=== PATIENT | female | born 1970 | race Caucasian/White ===

== ENCOUNTER 2023-03-18 09:50 | Emergency (ER) | payer MEDICARE, MEDICAID, SELFPAY ==
[2023-03-18] VITALS (21 sets, daily range): BP systolic 117–127; BP diastolic 66–78; PULSE 63–78; RESP 9–21; TEMP 36.6; O2SAT 94–100; BMI 31.8
--- NOTE | 2023-03-18 10:02 | XR_ITS ---
The [address] [address] Patient Name: WINIFRED MARTINEZ MRN: [id number] date: 1970 Sex: F Assigned Patient Location: ER Current Patient Location: ER Accession/Order Number: [id number] Exam Date: 03/18/2023 10:27 Report Date: 03/18/2023 10:38 At the request of: TOM JOHNSON Procedure: XR chest 1V EXAM: XR chest 1V HISTORY: chest pain COMPARISON: 01/10/2022 TECHNIQUE: Single view of the chest FINDINGS: Heart size normal. No focal consolidation, pleural effusion, pulmonary congestion or pneumothorax. XR/XR chest 1V IMPRESSION: No acute findings. Electronically authenticated by: JAMES CHRISTIE Date: 03/18/2023 10:38
--- NOTE | 2023-03-18 10:02 | ECG_ITS ---
The [facility] Test Date: 2023-03-18 Pat Name: WINIFRED MARTINEZ Department: Room: - Gender: Female Rn Patient Care: : 1970 Requested By: Order Number: [id number] Reading MD: DIETER SAINZ Measurements Intervals [place] Rate: 73 P: 44 FL: 178 QRS: 45 QRSD: 82 T: 49 QT: 394 QTc: 420 Interpretive Statements 1100 Sinus rhythm 9110 normal ECG No previous ECG available for comparison Electronically Signed On 03-19-2023 7:11:18 EDT by DIETER SAINZ
--- NOTE | 2023-03-18 10:07 | ED.CHESTPAI1 ---
HPI - Chest Pain General Chief Complaint: Chest Pain Stated Complaint: CHEST PAIN Time Seen by Provider: 03/18/23 09:56 Source: patient Mode of arrival: walk-in History of Present Illness HPI narrative: 52-year-old female presents for chest pain. It started about thirty minutes ago while she was at work. She points to the substernal area and the area just to the left of it. It's been continuous. She took her aspirin this morning and she took two of her own nitroglycerin and it brought the pain down. The pain is moderate and it's been continuous. No trauma and she doesn't complain to me of shortness of breath. She states that she had a stress test that was negative and she sees a senior advocate. She's never had a heart catheterization or diagnosis of coronary artery disease. Related Data Home Medications Medication Instructions Recorded Confirmed fluoxetine 20 mg capsule 20 mg PO DAILY 03/18/23 03/18/23 nitroglycerin 0.4 mg sublingual 0.4 mg sublingual Q5M PRN chest 03/18/23 03/18/23 tablet pain rosuvastatin 20 mg tablet 20 mg PO DAILY 03/18/23 03/18/23 Allergies Allergy/AdvReac Type Severity Reaction Status Date / Time No Known Drug Allergies Allergy Verified 03/18/23 09:54 Review of Systems ROS Narrative A ten point review of systems is negative except as noted above. Exam Narrative Exam Narrative: Nurses note and vital signs reviewed and patient is not hypoxic. General: The patient appears well and in no apparent distress. Patient is resting comfortably on cart. Skin: Warm, dry, no pallor noted. There is no rash noted. Head: Normocephalic, atraumatic Eye: Normal conjunctiva, no drainage Ears, Nose, Mouth, and Throat: oral mucosa is moist. Nares patent. Cardiovascular: Regular Rate and Rhythm Respiratory: Patient is in no distress, no accessory muscle use, lungs are clear to auscultation, no wheezing, rales or rhonchi Back: non-tender GI: soft and nontender Musculoskeletal: The patient has no evidence of calf tenderness, no pitting edema, symmetrical pulses noted bilaterally Neurological: A&O, normal speech Psychiatric: Cooperative Constitutional Vital Signs, click to edit/add: Last Vital Signs Temp 97.8 F 03/18/23 09:54 Pulse 78 03/18/23 11:10 Resp 14 03/18/23 11:10 BP 124/66 03/18/23 09:56 Pulse Ox 98 03/18/23 11:10 O2 Del Method Room Air 03/18/23 09:54 Course Vital Signs Vital signs: Vital Signs Temperature 97.8 F 03/18/23 09:54 Pulse Rate 75 03/18/23 09:54 Respiratory Rate 18 03/18/23 09:54 Blood Pressure 124/66 03/18/23 09:54 Pulse Oximetry 98 03/18/23 09:54 Oxygen Delivery Method Room Air 03/18/23 09:54 Temperature 97.8 F 03/18/23 09:54 Pulse Rate 78 03/18/23 11:10 Respiratory Rate 14 03/18/23 11:10 Blood Pressure 124/66 03/18/23 09:56 Pulse Oximetry 98 03/18/23 11:10 Oxygen Delivery Method Room Air 03/18/23 09:54 MDM - Chest Pain MDM Narrative Medical decision making narrative: per workup including two sets of troponin is negative. Chest x-ray negative. She is feeling improved after Toradol and will be discharged home. She'll follow-up with her family doctor. At this point there is no evidence of acute coronary syndrome. Treatment diagnosis and follow-up were discussed with the patient. heart score is two. Differential Diagnosis Differential diagnosis: Likely pneumothorax, stable angina, unstable angina pectoris, atypical chest pain, st elevation myocardial infarction, costochondritis and chest pain Lab Data Attestation: I reviewed the patient's lab results. Labs: Lab Results 03/18/23 03/18/23 Range/Units 10:00 11:43 WBC 9.6 (4.0-11.0) 10^3/uL RBC 4.41 (4.20-5.40) 10^6/uL Hgb 13.2 (12.0-16.0) g/dL Hct 39.2 (36.0-48.0) % MCV 88.9 (81.0-99.0) fL MCH 29.9 (26.7-34.0) pg MCHC 33.7 (29.9-35.2) g/dL RDW 13.3 (11.0-15.0) % Plt Count 409 (150-450) 10^3/uL MPV 9.6 (9.5-13.5) fL Neut % (Auto) 42.4 L (43.0-75.0) % Lymph % (Auto) 48.9 (20.5-60.0) % [place] % (Auto) 5.7 (1.7-12.0) % Eos % (Auto) 2.2 (0.9-7.0) % Baso % (Auto) 0.7 (0.2-2.0) % Neut # (Auto) 4.1 (1.4-6.5) 10^3/uL Lymph # (Auto) 4.7 H (1.2-3.8) 10^3/uL [place] # (Auto) 0.6 (0.3-0.8) 10^3/uL Eos # (Auto) 0.2 (0.0-0.7) 10^3/uL Baso # (Auto) 0.1 (0.0-0.1) 10^3/uL Abs Immat Gran (auto) 0.01 (0.00-0.03) 10^3/uL Imm/Tot Granulo (auto) 0.1 (0.0-0.5) % Sodium 141 (136-145) mmol/L Potassium 4.0 (3.5-5.1) mmol/L Chloride 106 (98-107) mmol/L Carbon Dioxide 24.4 (21.0-32.0) mmol/L Anion Gap 14.6 BUN 22.0 H (7.0-18.0) mg/dL Creatinine 0.83 (0.55-1.02) mg/dL Est GFR ( Amer) >60 (>=60) Est GFR (Non-Af Amer) >60 (>=60) BUN/Creatinine Ratio 26.5 Glucose 125 H (74-106) mg/dL Calcium 9.7 (8.5-10.1) mg/dL Troponin I High Sens <4.0 L <4.0 L (4.0-51.3) pg/mL Imaging Data Chest x-ray: Radiologist's impression: no acute findings ECG Data Attestation: I personally reviewed and interpreted this ECG as follows: (EKG on my interpretation shows sinus rhythm without acute findings. Rate is 73.) Heart Score History: Slightly/Non-Suspicious ECG: Normal Age: >45-<65 years Risk Factors: 1 or 2 Risk Factors Troponin: <Normal Limit Total Heart Score Recommendations & Risks:: 2 Discharge Plan Discharge Chief Complaint: Chest Pain Clinical Impression: Atypical chest pain Patient Disposition: Home, Self-Care Time of Disposition Decision: 13:18 Condition: Good Mode of Transportation: Private Vehicle Prescriptions / Home Meds: No Action fluoxetine 20 mg capsule 20 mg PO DAILY rosuvastatin 20 mg tablet 20 mg PO DAILY nitroglycerin 0.4 mg tablet, sublingual 0.4 mg sublingual Q5M PRN (Reason: chest pain) Instructions: Chest Pain (ED) Stand Alone Forms: Portal Instructions Referrals: Physician,Non-Staff, MD [Primary Care Provider] - 1 week
[2023-03-18] MEDS: NITROGLYCERIN 0.4 MG TAB.SUBL PO (10:16)
[2023-03-18 10:23] LABS: Basophils Absolute Auto 0.1 10^3/uL (0.0-0.1); Basophils Percent Auto 0.7 % (0.2-2.0); Eosinophils Absolute Auto 0.2 10^3/uL (0.0-0.7); Eosinophils Percent Auto 2.2 % (0.9-7.0); Hematocrit 39.2 % (36.0-48.0); Hemoglobin 13.2 g/dL (12.0-16.0); Immature Granulocytes Abs Auto 0.01 10^3/uL (0.00-0.03); Immature Granulocytes Pct Auto 0.1 % (0.0-0.5); Lymphocytes Absolute Auto 4.7 10^3/uL (1.2-3.8); Lymphocytes Percent Auto 48.9 % (20.5-60.0); Mean Corpuscular HGB Conc 33.7 g/dL (29.9-35.2); Mean Corpuscular Hemoglobin 29.9 pg (26.7-34.0); Mean Corpuscular Volume 88.9 fL (81.0-99.0); Mean Platelet Volume 9.6 fL (9.5-13.5); Monocytes Absolute Auto 0.6 10^3/uL (0.3-0.8); Monocytes Percent Auto 5.7 % (1.7-12.0); Neutrophils Absolute Auto 4.1 10^3/uL (1.4-6.5); Neutrophils Percent Auto 42.4 % (43.0-75.0); Platelet Count 409 10^3/uL (150-450); Red Blood Count 4.41 10^6/uL (4.20-5.40); Red Cell Distribution Width 13.3 % (11.0-15.0); White Blood Count 9.6 10^3/uL (4.0-11.0)
[2023-03-18 10:33] LABS: Anion Gap 14.6; BUN Creatinine Ratio 26.5; Calcium 9.7 mg/dL (8.5-10.1); Carbon Dioxide 24.4 mmol/L (21.0-32.0); Chloride 106 mmol/L (98-107); Estimated GFR (African America >60 (>=60); Estimated GFR (Non-African Ame >60 (>=60); Glucose 125 mg/dL (74-106); Sodium 141 mmol/L (136-145); Troponin I High Sensitivity <4.0 pg/mL (4.0-51.3)
[2023-03-18] MEDS: KETOROLAC TROMETHAMINE 30 MG/ML VIAL IVP (12:04)
[2023-03-18 12:12] LABS: Troponin I High Sensitivity <4.0 pg/mL (4.0-51.3)
== END 2023-03-18 13:31 | disposition home or self-care (01) ==
PROVIDERS: Emergency Provider Emergency Medicine
DX: R07.89 Other chest pain (principal); Z79.899 Other long term (current) drug therapy
CPT/HCPCS: 36415; 71045; 80048; 84484; 85025; 93005; 96374; 99285

== ENCOUNTER 2023-12-27 11:55 | Emergency (ER) | payer MEDICARE, MEDICAID, SELFPAY ==
[2023-12-27 12:01] VITALS: BP 116/58; PULSE 55; TEMP 37.6; O2SAT 99; BMI 31.9
--- NOTE | 2023-12-27 12:13 | ECG_ITS ---
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
--- NOTE | 2023-12-27 12:26 | XR_ITS ---
The [address] [address] Patient Name: WINIFRED MARTINEZ MRN: [id number] date: 1970 Sex: F Assigned Patient Location: ER Current Patient Location: ER Accession/Order Number: [id number] Exam Date: 12/27/2023 12:35 Report Date: 12/27/2023 12:49 At the request of: JAVIER NERI Procedure: XR chest 1V EXAMINATION: XR chest 1V HISTORY: Chest pain COMPARISON: 03/18/2023 TECHNIQUE: AP portable FINDINGS: LUNGS: No significant pulmonary parenchymal abnormalities. VASCULATURE: No increased pulmonary vasculature. PLEURA: No pneumothorax, effusion, or pleural thickening. CARDIAC: No cardiomegaly or cardiac silhouette abnormality. MEDIASTINUM: No visible mass or adenopathy. BONES: No fracture or visible bone lesion. OTHER: Negative. XR/XR chest 1V IMPRESSION: No acute cardiopulmonary abnormality Electronically authenticated by: AMINA LEE Date: 12/27/2023 12:49
[2023-12-27 12:32] LABS: Basophils Absolute Auto 0.1 10^3/uL (0.0-0.1); Basophils Percent Auto 0.9 % (0.2-2.0); Eosinophils Absolute Auto 0.2 10^3/uL (0.0-0.7); Eosinophils Percent Auto 1.7 % (0.9-7.0); Hematocrit 36.4 % (36.0-48.0); Hemoglobin 11.7 g/dL (12.0-16.0); Immature Granulocytes Abs Auto 0.04 10^3/uL (0.00-0.03); Immature Granulocytes Pct Auto 0.3 % (0.0-0.5); Lymphocytes Absolute Auto 3.7 10^3/uL (1.2-3.8); Lymphocytes Percent Auto 29.5 % (20.5-60.0); Mean Corpuscular HGB Conc 32.1 g/dL (29.9-35.2); Mean Corpuscular Hemoglobin 30.1 pg (26.7-34.0); Mean Corpuscular Volume 93.6 fL (81.0-99.0); Mean Platelet Volume 9.2 fL (9.5-13.5); Monocytes Absolute Auto 1.1 10^3/uL (0.3-0.8); Neutrophils Absolute Auto 7.4 10^3/uL (1.4-6.5); Neutrophils Percent Auto 58.6 % (43.0-75.0); Platelet Count 368 10^3/uL (150-450); Red Blood Count 3.89 10^6/uL (4.20-5.40); Red Cell Distribution Width 13.2 % (11.0-15.0); White Blood Count 12.6 10^3/uL (4.0-11.0)
[2023-12-27 12:43] LABS: Alanine Aminotransferase 27 U/L (14-59); Albumin Level 3.8 g/dL (3.4-5.0); Alkaline Phosphatase 105 U/L (46-116); Anion Gap 11.7; Aspartate Amino Transferase 19 U/L (15-37); BUN Creatinine Ratio 23.2; Bilirubin Total 0.3 mg/dL (0.2-1.0); Calcium 9.2 mg/dL (8.5-10.1); Carbon Dioxide 26.1 mmol/L (21.0-32.0); Chloride 105 mmol/L (98-107); Estimated GFR (African America >60 (>=60); Estimated GFR (Non-African Ame >60 (>=60); Globulin 3.8 g/dL; Glucose 103 mg/dL (74-106); Potassium 3.8 mmol/L (3.5-5.1); Sodium 139 mmol/L (136-145); Total Protein 7.6 g/dL (6.4-8.2)
[2023-12-27] MEDS: 0.9 % SODIUM CHLORIDE 1,000 ML 125 ML IV (12:46)
[2023-12-27 12:50] LABS: Troponin I High Sensitivity <4.0 pg/mL (4.0-51.3)
[2023-12-27 12:56] LABS: D Dimer 0.37 mg/L FEU (<=0.59); INR 1.03; Partial Thromboplastin Time 28.8 sec (22.3-36.2); Prothrombin Time 10.9 sec (9.0-11.6)
--- NOTE | 2023-12-27 13:50 | ED.GENADUL1 ---
HPI HPI - General Adult General Stated complaint: chest pain Time Seen by Provider: 12/27/23 12:25 Source: patient Mode of arrival: walk-in Limitations: no limitations History of Present Illness HPI narrative: Patient is a 53-year-old female who is presenting to the ER with chief complaint of midsternal chest pain that radiates into the left neck shoulder. This has been present yesterday and also today. Patient states that she been having this pain for 3 to 4 years. Patient works at [email or web address]. Patient lives in [place]. 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 Patient just recently had a stress test and echocardiogram in the [facility]. Patient has no headache. No fever or chills. No shortness of breath. Patient has no recent heavy lifting, twisting or turning, no other acute complaints. Patient states she has no history of acid reflux. She is never had EGD before. Patient has never had a cardiac cath previously. Patient has some frustration because she gets a burning sensation/pressure to the mid sternum and has not had any type answers and it has been the same for the past 3 to 4 years All systems are negative except as noted/marked. All systems reviewed and otherwise negative. Nurses note and vital signs reviewed and patient is not hypoxic. General: The patient appears well and in no apparent distress. Patient is resting comfortably on cart. Patient is not toxic, lethargic, or listless Skin: Warm, dry, no pallor noted. There is no rash noted. No petechiae, purpura. Head: Normocephalic, atraumatic Eye: Normal conjunctiva, no drainage, EOMI. PERRL Ears, Nose, Mouth, and Throat: oral mucosa is moist. Nares patent. Mouth without vesicles. Cardiovascular: Regular Rate and Rhythm, no murmur, gallop, rub, patient does have mild to moderate reproducible tenderness to palpation to the mid sternum, no rash, but patient feels the pain is deeper. Respiratory: Patient is in no distress, no accessory muscle use, lungs are clear to auscultation, no wheezing, rales or rhonchi Back: non-tender, no CVA tenderness bilaterally to percussion. No CT LS midline pain GI: no tenderness to palpation, no masses appreciated. No rebound, guarding, or rigidity noted. No distention. No flank pain bilateral Patient has no left upper or right upper quadrant tenderness palpation, no midepigastric pain. No peritoneal signs. Musculoskeletal: Patient has full range of motion of all of the extremities, no motor, sensory, or focal neurological deficits Neurological: A&O x4, normal speech Psychiatric: Cooperative Related Data Home Medications ?Medication ?Instructions ?Recorded ?Confirmed fluoxetine 20 mg capsule 20 mg PO DAILY 03/18/23 12/27/23 nitroglycerin 0.4 mg sublingual 0.4 mg sublingual Q5M PRN chest 03/18/23 12/27/23 tablet pain rosuvastatin 20 mg tablet 20 mg PO DAILY 03/18/23 12/27/23 buspirone 15 mg tablet 7.5 mg PO BID 12/27/23 12/27/23 Allergies Allergy/AdvReac Type Severity Reaction Status Date / Time No Known Drug Allergies Allergy Verified 03/18/23 09:54 Opioid HPI Opioid Management Most Recent Opioid Data: No Data to Display Exam Constitutional Vital Signs, click to edit/add: Last Vital Signs Temp 99.7 F 12/27/23 12:01 Pulse 55 L 12/27/23 12:01 Resp 18 12/27/23 12:01 BP 116/58 12/27/23 12:01 Pulse Ox 99 12/27/23 12:01 O2 Del Method Room Air 12/27/23 12:01 Course Vital Signs Vital signs: Vital Signs Temperature 99.7 F 12/27/23 12:01 Pulse Rate 55 L 12/27/23 12:01 Respiratory Rate 18 12/27/23 12:01 Blood Pressure 116/58 12/27/23 12:01 Pulse Oximetry 99 12/27/23 12:01 Oxygen Delivery Method Room Air 12/27/23 12:01 Temperature 99.7 F 12/27/23 12:01 Pulse Rate 55 L 12/27/23 12:01 Respiratory Rate 18 12/27/23 12:01 Blood Pressure 116/58 12/27/23 12:01 Pulse Oximetry 99 12/27/23 12:01 Oxygen Delivery Method Room Air 12/27/23 12:01 Medical Decision Making MDM Narrative Medical decision making narrative: We have paged the protective signal repairer from [place], Dr. Herndon. Dr Greenberg is taking the phone calls, and will be calling back. Patient states she is been having this chest pain for 3 to 4 years. Patient had a stress test and echocardiogram several months ago at the [facility]. Patient's chest x-ray, lab work, troponin showed no acute findings. Patient does not want to wait to speak to the protective signal repairer. Patient like to be discharged. Patient has an appointment coming up in January with her protective signal repairer from [place], Dr Herndon. Patient will call to try to move up her appointment sooner. Patient has been having chest pain yesterday and today, patient took nitro tablets yesterday with no relief. Patient took a full aspirin today and yesterday. 1405 05/07/[address] of her coronary arteries that showed no blockage. Dr. Greenberg called back, stated they will get her into the office to follow-up and had no other recommendations for the patient. Patient walked out of the ER with no difficulty. We received paperwork from the office of the cardiology office as well. Patient had a appointment on July 02, 2023. They did discuss patient's most recent coronary CTA in detail, discussed the images. Blood pressure has been controlled. Patient is on a statin. Patient has not had a EGD or any type of GI evaluation, patient was given Dr. Crespo name and number. Lab Data Lab results reviewed: Yes I reviewed the patient's lab results Labs: Lab Results 12/27/23 Range/Units 12:18 WBC 12.6 H (4.0-11.0) 10^3/uL RBC 3.89 L (4.20-5.40) 10^6/uL Hgb 11.7 L (12.0-16.0) g/dL Hct 36.4 (36.0-48.0) % MCV 93.6 (81.0-99.0) fL MCH 30.1 (26.7-34.0) pg MCHC 32.1 (29.9-35.2) g/dL RDW 13.2 (11.0-15.0) % Plt Count 368 (150-450) 10^3/uL MPV 9.2 L (9.5-13.5) fL Neut % (Auto) 58.6 (43.0-75.0) % Lymph % (Auto) 29.5 (20.5-60.0) % [place] % (Auto) 9.0 (1.7-12.0) % Eos % (Auto) 1.7 (0.9-7.0) % Baso % (Auto) 0.9 (0.2-2.0) % Neut # (Auto) 7.4 H (1.4-6.5) 10^3/uL Lymph # (Auto) 3.7 (1.2-3.8) 10^3/uL [place] # (Auto) 1.1 H (0.3-0.8) 10^3/uL Eos # (Auto) 0.2 (0.0-0.7) 10^3/uL Baso # (Auto) 0.1 (0.0-0.1) 10^3/uL Abs Immat Gran (auto) 0.04 H (0.00-0.03) 10^3/uL Imm/Tot Granulo (auto) 0.3 (0.0-0.5) % PT 10.9 (9.0-11.6) sec INR 1.03 APTT 28.8 (22.3-36.2) sec D-Dimer 0.37 (<=0.59) mg/L FEU Sodium 139 (136-145) mmol/L Potassium 3.8 (3.5-5.1) mmol/L Chloride 105 (98-107) mmol/L Carbon Dioxide 26.1 (21.0-32.0) mmol/L Anion Gap 11.7 BUN 22.0 H (7.0-18.0) mg/dL Creatinine 0.95 (0.55-1.02) mg/dL Est GFR ( Amer) >60 (>=60) Est GFR (Non-Af Amer) >60 (>=60) BUN/Creatinine Ratio 23.2 Glucose 103 (74-106) mg/dL Calcium 9.2 (8.5-10.1) mg/dL Total Bilirubin 0.3 (0.2-1.0) mg/dL AST 19 (15-37) U/L ALT 27 (14-59) U/L Alkaline Phosphatase 105 (46-116) U/L Troponin I High Sens <4.0 L (4.0-51.3) pg/mL NT-Pro-B Natriuret Pep 162.0 (<=900.0) pg/mL Total Protein 7.6 (6.4-8.2) g/dL Albumin 3.8 (3.4-5.0) g/dL Globulin 3.8 g/dL Albumin/Globulin Ratio 1.0 Lipase 32.0 (16.0-77.0) U/L ECG Data Attestation: I personally reviewed and interpreted this ECG as follows: (EKG interpretation. Normal sinus rhythm at 74 beats a minute. Normal axis deviation. No acute ST elevation, no acute ectopy. QTc of 423) Discharge Plan Discharge Stand Alone Forms: Work/School Release, Portal Instructions Clinical Impression: Atypical chest pain Patient Disposition: Home, Self-Care Time of Disposition Decision: 13:47 Condition: Fair Prescriptions / Home Meds: No Action fluoxetine 20 mg capsule 20 mg PO DAILY rosuvastatin 20 mg tablet 20 mg PO DAILY nitroglycerin 0.4 mg tablet, sublingual 0.4 mg sublingual Q5M PRN (Reason: chest pain) buspirone 15 mg tablet 7.5 mg PO BID Print Language: Guyanese Instructions: Chest Pain (ED), Gastritis (ED) Additional Instructions: Call your protective signal repairer from [place] to schedule and try to see if you can move up your appointment sooner than what it is already scheduled in January. We have diagnosed the possibility of a cardiac cath that your protective signal repairer may perform in the future, if it is indicated. You may did follow-up with a GI physician, for a possible upper EGD. Dr. Crespo was given to you for follow-up as well. Education on gastritis was given to you for educational purposes only. Referrals: Memo Crespo MD [Physician] - 1 week Physician,Non-, [Primary Care Provider] - 1 week
== END 2023-12-27 14:06 | disposition home or self-care (01) ==
PROVIDERS: Emergency Provider Emergency Medicine
DX: R07.89 Other chest pain (principal); Z79.899 Other long term (current) drug therapy
CPT/HCPCS: 36415; 71045; 80053; 83690; 83880; 84484; 85025; 85378; 85610; 85730; 93005; 99285

== ENCOUNTER 2024-06-02 16:44 | Emergency (ER) | payer MEDICARE, SELFPAY ==
[2024-06-02] VITALS (23 sets, daily range): BP systolic 128–168; BP diastolic 81–96; PULSE 67–83; TEMP 36.8; O2SAT 93–99; BMI 32.9
--- NOTE | 2024-06-02 16:48 | ECG_ITS ---
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
--- OUTSIDE RECORDS SUMMARY | 2024-06-02 16:55 | XMS_ITS | CCD ---
Author Organization [facility] Care Team Providers Care Boat Officer Name Role Phone CALDERONKATIE Unavailable Unavailable KATIE PINTO Unavailable Unavailable CHANA POLO Attending Unavailab LIN Diaz Primary Care Unavailable Lin Weller Primary Care Provider [facility], DR MARTINEZ Primary Care Unavailable SHANTA ., ANA Admitting Unavailable SHANTA ., ANA Attending Unavailable SHANTA ., ANA Consulting Unavailable [facility], DR MARTINEZ Primary Care Unavailable DANNIE ., DR RIGGS Admitting Unavailable HOY ., DR RIGGS Attending Unavailable HOY ., DR RIGGS Consulting Unavailable Edenilson, Amina Consulting Unavailable ZIEBER, DR NIALL Rubio Consulting Unavailable PAY ., DR HERRERA Consulting Unavailable GRECHNY ., DONIS RUIZ Consulting UnavailMALCOLM Eastman Attending Unavailable LIN WELLER Referring Unavailable LIN WELLER Primary Care Unavailable Allergies Allergy Classification Reported Allergen(s) Allergy Type Date of Onset Reaction(s) Facility (1 source) bee venom Drug allergy (disorder) 5 [facility] Repository (1 source) BEE VENOM PROTEIN (HONEY BEE); 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: [BEE VENOM PROTEIN (HONEY BEE)] Propensity to adverse reactions to drug (disorder) 8 [facility] Repository Medications Current Medications Medication Drug Class(es) Dates Sig (Normalized) Sig (Original) acetaminophen 325 mg / oxyCODONE hydrochloride 5 mg oral tablet (1 source) Opioid Agonist Start: 04-19-2019 End: 04-22-2019 take 1 tablet by mouth every six hours as needed for pain oxyCODONE-acetam inophen (PERCOCET) 5-325 MG per tablet Indications: Right arm pain , Contusion of right elbow, initial encounter , Ulnar neuropathy at elbow of right upper extremity Take 1 tablet by mouth every 6 hours as needed for Pain for up to 3 days. 10 tablet 0 04/19/2019 04/22/2019 Active etodolac 400 mg oral tablet (1 source) Nonsteroidal Anti-inflammatory Drug Start: 04-19-2019 take 1 tablet by mouth twice daily etodolac (LODINE) 400 MG tablet Take 1 tablet by mouth 2 times daily 30 tablet 0 04/19/2019 Active Start: 04-19-2019 take 1 tablet by dorene th twice daily etodolac (LODINE) 400 MG tablet Take 1 tablet by mouth 2 times daily 30 tablet 0 04/19/2019 Active FLUoxetine 20 mg oral capsule (1 source) Serotonin Reuptake Inhibitor take 2 capsules by mouth once daily FLUoxetine (PROZAC) 20 MG capsule Take 40 mg by mouth daily 0 Active Completed/Discontinued Medications Medication Drug Class(es) Dates Sig (Normalized) Sig (Original) 1 ml morphine sulfate 10 mg/ml injection (1 source) Opioid Agonist Start: 04-19-2019 End: 04-19-2019 morphine injection 10 mg Start: 04-19-2019 End: 04-19-2019 morphine injection 10 mg 2 ml ondansetron 2 mg/ml injection (1 source) Serotonin-3 Receptor Antagonist Start: 04-19-2019 End: 04-19-2019 ondansetron (ZOFRAN) injection 4 mg Start: 04-19-2019 End: 04-19-2019 ondansetron (ZOFRAN) injecti on 4 mg Problems Active Problems Problem Classification Problem Date Documented Date Episodic/Chronic Coronary atherosclerosis and other heart disease (1 source) Other forms of angina pectoris; 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: [Other forms of angina pectoris] Onset: 4 Chronic Disorders of lipid metabolism (1 source) Pure hypercholesterolemia, unspecified; 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: [PURE HYPERCHOLESTEROLEMIA UNSPEC] Onset: 2 Chronic Other aftercare (1 source) 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) use 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; 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: [ROAD PATCHER CURRENT USE OF ASPIRIN] Onset: 3 Episodic Other aftercare (1 source) Other mcfp (current) drug therapy; 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: [OTH ROAD PATCHER CURRENT DRUG THERAPY] Onset: 3 Episodic Other nervous system disorders (2 sources) Ulnar neuropathy; 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] Onset: 9 04-19-2019 Chronic Spondylosis; intervertebral disc disorders; other back problems (4 sources) Muscle spasm of back; 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: [MUSCLE SPASM OF BACK] Onset: 3 Episodic Substance-related disorders (1 source) Nicotine dependence, cigarettes, uncomplicated; 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: [NICOTINE DEPEND CIGARETTES UNCOMP] Onset: 2 Chronic Unclassified (1 source) Unknown / UNK(Unknown) Onset: 7 Unclassified (2 sources) Contusion of right elbow; 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: [Contusion of right elbow, initial encounter] Onset: 9 04-19-2019 Unclassified (1 source) CONTACT W/AND (SUSP) EXPOS COVID-19; 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: [CONTACT W/AND (SUSP) EXPOS COVID-19] Onset: 2 Past or Other Problems Problem Classification Problem Date Documented Da te Episodic/Chronic Nonspecific chest pain (4 sources) Chest pain, unspecified; 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: [Other chest pain] Onset: 01-10-2022 Episodic Other connective tissue disease (2 sources) Pain in right arm; 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: [Right arm pain] Onset: 04-19-2019 04-19-2019 Episodic Other connective tissue disease (1 source) Pain in left arm; 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: [PAIN IN LEFT ARM] Onset: 01-15-2022 Episodic Other lower respiratory disease (1 source) Shortness of breath; 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: [SHORTNESS OF BREATH] Onset: 01-15-2022 Episodic Other skin disorders (1 source) Generalized hyperhidrosis; 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: [GENERALIZED HYPERHIDROSIS] Onset: 01-15-2022 Episodic Results Test Name Value Interpretation Reference Range Facility T4 [facility]on 01-12-2022 T4 [Mass/Vol] 5.4 ug/dL Normal 4.5-12.0 [facility] Comment on above: Performed By: #### T 4LC ####[facility] [address] [place], [place] [address]EbDr. Agnes Frost BNPon 01-11-2022 Natriuretic peptide B (Bld) [Mass/Vol] 17.0 pg/mL Normal <=900.0 [facility] Comment on above: Performed By: #### B LEAD ELECTRICIAN, CMP #### [facility] [address] [place], [place] [address] Dr. Agnes Frost CBC AUTO DIFFon 01-11-2022 BASO # 0.1 103/ul Normal 0.0-0.1 [facility] Comment on above: Performed By: #### C BC ####[facility] [address] [place] [address]Dr. Agnes Frost Basophils/100 WBC (Bld) 1.0 % Normal 0.2-2.0 [facility] Comment on above: Performed By: #### C BC ####[facility] [address] [place], [place] [address]Dr. Amandamariana Santosh EO # 0.4 103/ul Normal 0.0-0.7 [facility] Comment on above: Performed By: #### C BC ####[facility] [address] [place], [place] [address]Dr. Agnes Santosh Eosinophils/100 WBC (Bld) 4.2 % Normal 0.9-7.0 [facility] Comment on above: Performed By: #### C BC ####[facility] [address] [place], [place] [address]Dr. Agnes Santosh Erythrocyte distribution width (RBC) [Ratio] 14.0 % Normal 11.0-15.0 [facility] Comment on above: Performed By: #### C BC ####[facility] [address] [place], [place] [address]Dr. Agnes Frost Hematocrit (Bld) [Volume fraction] 39.2 % Normal 36.0-48.0 [facility] Comment on above: Performed By: #### C BC ####[facility] [address] [place], [place] [address]Dr. Amandamariana Santosh Hemoglobin (Bld) [Mass/Vol] 12.5 g/dL Normal 12.0-16.0 [facility] Comment on above: Performed By: #### C BC ####[facility] [address] [place], [place] [address]Dr. Agnes Frost IG # 0.02 10e3/ul Normal 0.00-0.03 [facility] Comment on above: Performed By: #### C BC ####[facility] [address] [place] [address]Dr. Agnes Frost IG % 0.2 % Normal 0.0-0.5 [facility] Comment on above: Performed By: #### C BC ####[facility] [address] [place] [address]Dr. Agnes Frost LYMPH # 4.3 103/ul Critically high 1.2-3.8 [facility] Comment on above: Performed By: #### C BC ####[facility] [address] [place], [place] [address]Dr. Agnes Frost Lymphocytes/100 WBC (Bld) 46.6 % Normal 20.5-60.0 [facility] Comment on above: Performed By: #### C BC ####[facility] [address] [place], [place] [address]Dr. Agnes Frost MANUAL DIFF REQ NO Normal [facility] Comment on above: Performed By: #### C BC ####[facility] [address] [place], [place] [address]Dr. Agnes Frost MCH (RBC) [Entitic mass] 29.1 pg Normal 26.7-34.0 [facility] Comment on above: Performed By: #### C BC ####[facility] [address] [place], [place] [address]Dr. Agnes Frost MCHC (RBC) [Mass/Vol] 31.9 g/dL Normal 29.9-35.2 [facility] Comment on above: Performed By: #### C BC ####[facility] [address] [place], [place] [address]DrOchoa Frost MCV (RBC) [Entitic vol] 91.4 fL Normal 81.0-99.0 [facility] Comment on above: Performed By: #### C BC ####[facility] [address] [place], [place] [address]DrOchoa Frost MONO # 0.8 103/ul Normal 0.3-0.8 [facility] Comment on above: Performed By: #### C BC ####[facility] [address] [place], [place] [address]Dr. Agnes Frost Monocytes/100 WBC (Bld) 8.1 % Normal 1.7-12.0 [facility] Comment on above: Performed By: #### C BC ####[facility] [address] [place] [address]Dr. Agnes Frost NEUT # 3.7 103/ul Normal 1.4-6.5 [facility] Comment on above: Performed By: #### C BC ####[facility] [address] [place] [address]Dr. Agnes Frost Neutrophils/100 WBC (Bld) 39.9 % Critically low 43.0-75.0 [facility] Comment on above: Performed By: #### C BC ####[facility] [address] [place] [address]Dr. Agnes Frost Platelet mean volume (Bld) [Entitic vol] 9.2 fL Critically low 9.5-13.5 [facility] Comment on above: Performed By: #### C BC ####[facility] [address] [place] [address]Dr. Agnes Frost PLT 366 103/ul Normal 150-450 [facility] Comment on above: Performed By: #### C BC ####[facility] [address] [place] [address]Dr. Agnes Frost RBC 4.29 106/ul Normal 4.20-5.40 [facility] Comment on above: Performed By: #### C BC ####[facility] [address] [place] [address]Dr. Agnes Frost WBC 9.3 103/ul Normal 4.0-11.0 [facility] Comment on above: Performed By: #### C BC ####[facility] [address] [place] [address]Dr. Agnes Frost ECHOCARDIO M/2D COMPLETEon 0 01-11-2022 ECHOCARDIO M/2D COMPLETE Patient: KETTY ROCA Exam Date: 01/11/2022 : 1970 Gender:F Ordering : DR ONEIL PANDEY . Admission #: [id number] Family : AMPARO WELLER Order #: [id number] CLICK HERE TO VIEW EXAM ECHOCARDIOGRAM REPORT PROCEDURE: CARDIO PULMONARY ECHOCARDIO M/2D COMP INDICATIONS: R/O ACS, chest pain, smoker COMPARISON: None. DESCRIPTION: COMPLETE ECHOCARDIOGRAM Real-time transthoracic echocardiography with 2D, M-mode, spectral and color flow Doppler performed. QUALITY: Technical quality was adequate. LEFT VENTRICLE: Normal chamber size. Mild concentric left ventricular hypertrophy. No regional wall motion abnormalities. Systolic function is normal. LV EF: Normal left ventricular ejection fraction, (>55%). DIASTOLIC: Normal diastolic function. ATRIAL SEPTUM: Visually appears intact. LEFT ATRIUM: Normal chamber size. RIGHT ATRIUM: Normal chamber size. RIGHT VENTRICLE: Normal chamber size. Normal right ventricular systolic function. TRICUSPID VALVE: Normal mobility and thickness. No stenosis with no regurgitation. MITRAL VALVE: Normal mobility and thickness. No evidence of mitral valve stenosis. No mitral regurgitation. AORTIC VALVE: Normal trileaflet appearance. No visible sclerosis. Normal leaflet mobility. No evidence of aortic valve stenosis. No aortic regurgitation. AORTIC ROOT: Normal diameter and appearance. PULMONIC VALVE: Not well visualized. No stenosis. No regurgitation. PERICARDIUM: No evidence of pericardial effusion. IVC: Collapses with inspirations. IVC is normal in size. PLEURA: CONCLUSION: 1. Normal ventricular systolic function. LVEF is 65%. 2. No significant valvular dysfunction. 3. No pericardial effusion. Adult Echocardiography Procedure Report Left Ventricle LVEDD (3.7 - 5.6 cm): 4.65 cm LVESD (2.2 - 4.0 cm): 3.00 cm LVIVS thickness (0.6 - 1.2 cm): 1.12 cm LVPW thickness (0.5 - 1.0 cm): 1.17 cm e': 13.50 cm/s E - e': 4.50 LVOT Area (cm2): 3.14 cm2 LVOT Diameter 2.00 cm Left Ventricular Ejection Fraction: 65 % Left Atrium LA Volume Index (2D A2C): 22.60 ml/m2 Left Atrium Systolic Dimension: 4.20 cm Left Atrium Systolic Area(A2C): 18.80 cm2 Left Atrium Systolic Area(A4C): 18.90 cm2 Left Atrium Systolic Volume(A2C): 40009 mm3 Left Atrium Systolic Volume(A4C): 27021 mm3 Mitral Valve MV E to A Ratio: 1.10 Mitral Valve A-Wave Peak Velocity: 53.30 cm/s Mitral Valve E-Wave Peak Velocity: 61.20 cm/s Deceleration Time: 232 ms Right Ventricle Aorta AO Root Diam: 3.10 cm Aortic Valve AoV Area (Peak Jacoby): 2.45 cm2 Peak Velocity(Antegrade Flow): 112.00 cm/s Peak Gradient(Antegrade Flow): 5 mm[Hg] Tricuspid Valve Pulmonic Valve Peak Velocity: 75.20 cm/s Peak Gradient: 2 mm[Hg] Right Atrium Dictated by: Bhupinder Vides M.D. on 01/11/2022 at 19:47 Approved by: Bhupinder Vides M.D. on 01/11/2022 at 19:49 Normal [facility] NM STRESS/REST MULTIon 01-11 NM STRESS/REST MULTI Patient: KETTY ROCA Exam Date: 01/11/2022 : 1970 Gender:F Ordering : DR ONEIL PANDEY . Admission #: [id number] Family : Order #: [id number] CLICK HERE TO VIEW EXAM RADIOLOGY REPORT PROCEDURE: RADIONUCLIDE IMAGING STRESS/REST MULTI COMPARISON: None. INDICATIONS: Chest pain TECHNIQUE: Exam Description: Stress/Rest one day protocol gated SPECT Rest Imagin.0 mCi Tc-99m Cardiolite IV on 01/11/2022 Stress Imaging 30.1 mCi Tc-99m Cardiolite IV on 01/11/2022 Exercise Protocol: Klaus Heart Rate (bpm): Rest: 64 Max: 141 PMHR: 85 Blood Pressure: Rest: 132/74 Max: 144/88 Exercise Time: Minutes: 7 Seconds: 00 Stage Reached: Stage: 3 Mets 7.0 Symptoms: Rest and peak stress ECG findings were normal and the exercise portion of the study was normal per attending physician Dr. Hensley . For more details please see separate cardiac stress test report. FINDINGS: QUALITY OF STUDY: Excellent. PERFUSION DEFECT: LOCATION: Mid-anteroseptal. Apical anterior. SIZE: Small (1-2 segments). SEVERITY: Mild. TYPE: Persistent. WALL MOTION: Normal. LV SIZE: Normal. 91 mL. TID / TCD: None; 0.7 LVEF: Normal. Calculated EF 67%. SUMMARY: Myocardial perfusion imaging study has ABNORMAL findings. CONCLUSION: 1. No acute or reversible ischemia. 2. Small area of breast attenuation artifact versus fixed ischemia within the mid and apical anterior septal wall. Attenuation artifact is suspected. 3. Normal wall motion and ejection fraction. Dictated by: Niall Rogers M.D. on 01/11/2022 at 15:56 Approved by: Niall Rogers M.D. on 01/11/2022 at 15:59 Normal [facility] PROF 14(COMP METB)on 022 Albumin [Mass/Vol] 3.5 g/dL Normal 3.4-5.0 [facility] Comment on above: Performed By: #### B LEAD ELECTRICIAN, CMP #### [facility] [address] [place] [address] Dr. Agnes Frost Albumin/Globulin [Mass ratio] 0.9 {ratio} Normal [facility] Comment on above: Performed By: #### B LEAD ELECTRICIAN, CMP #### [facility] [address] [place] [address] Dr. Agnes Frost ALP [Catalytic activity/Vol] 100 U/L Normal 46-116 [facility] Comment on above: Performed By: #### B LEAD ELECTRICIAN, CMP #### [facility] [address] [place] [address] Dr. Agnes Frost ALT [Catalytic activity/Vol] 31 U/L Normal 14-59 [facility] Comment on above: Performed By: #### B LEAD ELECTRICIAN, CMP #### [facility] [address] [place] [address] Dr. Agnes Frost Anion gap [Moles/Vol] 10.1 mmol/L Normal [facility] Comment on above: Performed By: #### B LEAD ELECTRICIAN, CMP #### [facility] [address] [place] [address] Dr. Agnes Frost AST [Catalytic activity/Vol] 19 U/L Normal 15-37 [facility] Comment on above: Performed By: #### B LEAD ELECTRICIAN, CMP #### [facility] [address] [place] [address] Dr. Agnes Frost Bilirubin [Mass/Vol] 0.3 mg/dL Normal 0.2-1.0 [facility] Comment on above: Performed By: #### B LEAD ELECTRICIAN, CMP #### [facility] [address] [place] [address] Dr. Agnes Frost Calcium [Mass/Vol] 9.1 mg/dL Normal 8.5-10.1 [facility] Comment on above: Performed By: #### B LEAD ELECTRICIAN, CMP #### [facility] [address] [place] [address] [address] Agnes Frost Chloride [Moles/Vol] 105 mmol/L Normal 98-107 [facility] Comment on above: Performed By: #### B LEAD ELECTRICIAN, CMP #### [facility] [address] [place] [address] Dr. Agnes Frost CO2 [Moles/Vol] 28.2 mmol/L Normal 21.0-32.0 [facility] Comment on above: Performed By: #### B LEAD ELECTRICIAN, CMP #### [facility] [address] [place] [address] Dr. Agnes Frost Creatinine [Mass/Vol] 0.76 mg/dL Normal 0.55-1.02 [facility] Comment on above: Performed By: #### B LEAD ELECTRICIAN, CMP #### [facility] [address] [place] [address] Dr. Agnes Frost EGFR-AF UGANDAN >60 Normal >=60 [facility] Comment on above: Performed By: #### B LEAD ELECTRICIAN, CMP #### [facility] [address] [place] [address] Dr. Agnes Frost EGFR-NON AF UGANDAN >60 Normal >=60 [facility] Comment on above: Performed By: #### B LEAD ELECTRICIAN, CMP #### [facility] [address] [place] [address] Dr. Agnes Frost Globulin (S) [Mass/Vol] 3.8 g/dL Normal [facility] Comment on above: Performed By: #### B LEAD ELECTRICIAN, CMP #### [facility] [address] [place] [address] Dr. Agnes Frost Glucose [Mass/Vol] 105 mg/dL Normal 74-106 [facility] Comment on above: Performed By: #### B LEAD ELECTRICIAN, CMP #### [facility] [address] [place] [address] [address] Agnes Frost Potassium [Moles/Vol] 4.3 mmol/L Normal 3.5-5.1 [facility] Comment on above: Performed By: #### B LEAD ELECTRICIAN, CMP #### [facility] [address] [place] [address] [address] Agnes Frost Protein [Mass/Vol] 7.3 g/dL Normal 6.4-8.2 [facility] Comment on above: Performed By: #### B LEAD ELECTRICIAN, CMP #### [facility] [address] [place] [address] [address] Agnes Frost Sodium [Moles/Vol] 139 mmol/L Normal 136-145 [facility] Comment on above: Performed By: #### B LEAD ELECTRICIAN, CMP #### [facility] [address] [place] [address] [address] Agnes Frost Urea nitrogen [Mass/Vol] 14.0 mg/dL Normal 7.0-18.0 [facility] Comment on above: Performed By: #### B LEAD ELECTRICIAN, CMP #### [facility] [address] [place] [address] [address] Agnes Frost Urea nitrogen/Creatinin e [Mass ratio] 18.4 mg/mg Normal [facility] Comment on above: Performed By: #### B LEAD ELECTRICIAN, CMP #### [facility] [address] [place] [address] [address] Agnes Frost TSHon 01-11-2022 TSH 2.224 uIU/mL Normal 0.358-3.740 [facility] Comment on above: Performed By: #### T SH ####[facility] [address] [place] [address]Dr. Agnes Frost TSH RANGE SEE BELOW Normal [facility] Comment on above: Result Comment: <0.3 4 UIU/ml HYPERTHYROID 0.34-5.60 UIU/ml EUTHYROID >5.60 UIU/ml HYPOTHYROID Performed By: #### T SH ####[facility] [address] [place] [address]Dr. Agnes Frost BNPon 01-10-2022 Natriuretic peptide B (Bld) [Mass/Vol] 17.0 pg/mL Normal <=900.0 [facility] Comment on above: Performed By: #### C MP, LIPA, BNP, HSTROPN ####[facility] [address] [place] [address]Dr. Agnes Frost CARDIAC KORY 3-6on 2 CK [Catalytic activity/Vol] 192 U/L Normal 26-192 [facility] Comment on above: Performed By: #### C MREP ####[facility] [address] [place] [address]Dr. Agnes Frost CK.MB [Mass/Vol] 2.88 ng/mL Normal <=3.60 [facility] Comment on above: Performed By: #### C MREP ####[facility] [address] [place], [place] [address]Dr. Agnes Frost HSTROP 4.7 pg/mL Normal 4.0-51.3 [facility] Comment on above: Result Comment: CUT- OFF POINTS HAVE BEEN ESTABLISHED BASED ON THE FOURTH UNIVERSAL DEFINITIONS OF MYOCARDIAL INFARCTION. THE UPPER REFERENCE LIMIT (URL) OF TROPONIN, DEFINED THE 99TH PERCENTILE OF cTnI DISTRIBUTION IN A REFERENCE POPULATION, HAS BEEN CONFIRMED THE DECISION THRESHOLD FOR OK DIAGNOSIS. Performed By: #### C MREP ####[facility] [address] [place] [address]Dr. Agnes Frost CK [Catalytic activity/Vol] 213 U/L Critically high 26-192 [facility] Comment on above: Performed By: #### C MREP #### [facility] [address] [place] [address] Dr. Agnes Frost CK.MB [Mass/Vol] 3.29 ng/mL Normal <=3.60 [facility] Comment on above: Performed By: #### C MREP #### [facility] [address] [place] [address] Dr. Agnes Frost HSTROP 4.4 pg/mL Normal 4.0-51.3 [facility] Comment on above: Result Comment: CUT- OFF POINTS HAVE BEEN ESTABLISHED BASED ON THE FOURTH UNIVERSAL DEFINITIONS OF MYOCARDIAL INFARCTION. THE UPPER REFERENCE LIMIT (URL) OF TROPONIN, DEFINED THE 99TH PERCENTILE OF cTnI DISTRIBUTION IN A REFERENCE POPULATION, HAS BEEN CONFIRMED THE DECISION THRESHOLD FOR OK DIAGNOSIS. Performed By: #### C MREP #### [facility] [address] [place] [address] Dr. Agnes Frost CBC AUTO DIFFon 01-10-2022 BASO # 0.1 103/ul Normal 0.0-0.1 [facility] Comment on above: Performed By: #### C BC #### [facility] [address] [place] [address] Dr. Agnes Frost Basophils/100 WBC (Bld) 0.8 % Normal 0.2-2.0 [facility] Comment on above: Performed By: #### C BC #### [facility] [address] [place] [address] Dr. Agnes Frost EO # 0.3 103/ul Normal 0.0-0.7 [facility] Comment on above: Performed By: #### C BC #### [facility] [address] [place] [address] Dr. Agnes Frost Eosinophils/100 WBC (Bld) 3.1 % Normal 0.9-7.0 [facility] Comment on above: Performed By: #### C BC #### [facility] [address] [place] [address] Dr. Agnes Frost Erythrocyte distribution width (RBC) [Ratio] 13.9 % Normal 11.0-15.0 [facility] Comment on above: Performed By: #### C BC #### [facility] [address] [place] [address] Dr. Agnes Frost Hematocrit (Bld) [Volume fraction] 38.8 % Normal 36.0-48.0 [facility] Comment on above: Performed By: #### C BC #### [facility] [address] [place] [address] Dr. Agnes Frost Hemoglobin (Bld) [Mass/Vol] 12.5 g/dL Normal 12.0-16.0 [facility] Comment on above: Performed By: #### C BC #### [facility] [address] [address] [address] Agnes Frost IG # 0.03 10e3/ul Normal 0.00-0.03 [facility] Comment on above: Performed By: #### C BC #### [facility] [address] [place] [address] Dr. Agnes Frost IG % 0.3 % Normal 0.0-0.5 [facility] Comment on above: Performed By: #### C BC #### [facility] [address] [place] [address] Dr. Agnes Frost LYMPH # 4.3 103/ul Critically high 1.2-3.8 [facility] Comment on above: Performed By: #### C BC #### [facility] [address] [place] [address] Dr. Agnes Frost Lymphocytes/100 WBC (Bld) 39.5 % Normal 20.5-60.0 [facility] Comment on above: Performed By: #### C BC #### [facility] [address] [place] [address] Dr. Agnes Frost MANUAL DIFF REQ NO Normal [facility] Comment on above: Performed By: #### C BC #### [facility] [address] [place] [address] Dr. Agnes Frost MCH (RBC) [Entitic mass] 29.1 pg Normal 26.7-34.0 [facility] Comment on above: Performed By: #### C BC #### [facility] [address] [place] [address] Dr. Agnes Frost MCHC (RBC) [Mass/Vol] 32.2 g/dL Normal 29.9-35.2 [facility] Comment on above: Performed By: #### C BC #### [facility] [address] [place] [address] Dr. Agnes Frost MCV (RBC) [Entitic vol] 90.4 fL Normal 81.0-99.0 [facility] Comment on above: Performed By: #### C BC #### [facility] [address] [place] [address] Dr. Agnes Frost MONO # 0.7 103/ul Normal 0.3-0.8 [facility] Comment on above: Performed By: #### C BC #### [facility] [address] [place] [address] Dr. Agnes Frost Monocytes/100 WBC (Bld) 6.8 % Normal 1.7-12.0 [facility] Comment on above: Performed By: #### C BC #### [facility] [address] [place] [address] Dr. Agnes Frost NEUT # 5.3 103/ul Normal 1.4-6.5 [facility] Comment on above: Performed By: #### C BC #### [facility] [address] [place] [address] Dr. Agnes Frost Neutrophils/100 WBC (Bld) 49.5 % Normal 43.0-75.0 [facility] Comment on above: Performed By: #### C BC #### [facility] [address] [place] [address] Dr. Agnes Frost Platelet mean volume (Bld) [Entitic vol] 9.2 fL Critically low 9.5-13.5 [facility] Comment on above: Performed By: #### C BC #### [facility] [address] [place] [address] Dr. Agnes Frost PLT 443 103/ul Normal 150-450 [facility] Comment on above: Performed By: #### C BC #### [facility] [address] [place] [address] Dr. Agnes Frost RBC 4.29 106/ul Normal 4.20-5.40 [facility] Comment on above: Performed By: #### C BC #### [facility] [address] [place] [address] Dr. Agnes Frsot WBC 10.8 103/ul Normal 4.0-11.0 [facility] Comment on above: Performed By: #### C BC #### [facility] [address] [place] [address] Dr. Agnes Frost Covid-19 PCR (CVDTBH)on SARS-CoV-2 (COVID-19) RNA PHILOMENA+probe Ql (Unsp spec) Not detected Normal NOT DETECTED [facility] Comment on above: Result Comment: When diagnostic testing is negative, the possibility of a false negative should be considered in the context of a patient's recent exposures and the presence of clinical signs and symptoms consistent with SARS-CoV-2. This test is not yet approved or cleared by the [place] FDA. When there are no FDA-approved or cleared tests available, and other criteria are met, FDA can make tests available under an emergency access mechanism called an Emergency Use Authorization (EUA). The EUA for this test is supported by the [place] of Health and Human Service's declaration that circumstances exist to justify the emergency use of in vitro diagnostics for the detection and/or diagnosis of the virus that causes COVID-19. This EUA will remain in effect for the duration of the COVID-19 declaration justifying emergency of IVDs, unless it is terminated or revoked by the FDA (after which the test may no longer be used). Performed By: #### C VDTBH ####[facility] [address] [address]Dr. Agnes Frost ER URINE PROFILEon 2 Bilirubin Ql (U) Negative Normal NEGATIVE [facility] Comment on above: Performed By: #### E RUR #### [facility] [address] [place] [address] Dr. Agnes Frost Clarity (U) CLEAR Normal CLEAR [facility] Comment on above: Performed By: #### E RUR #### [facility] [address] [place] [address] Dr. Agnes Frost Color (U) LT. YELLOW Normal YELLOW [facility] Comment on above: Performed By: #### E RUR #### [facility] [address] [place] [address] Dr. Agnes Frost ERUAHD A micrscopic examination will be performed if indicated. Normal [facility] Comment on above: Performed By: #### E RUR #### [facility] [address] [place] [address] Dr. Agnes Frost Glucose Ql (U) Negative Normal NEGATIVE The [facility] Comment on above: Performed By: #### E RUR #### [facility] [address] [place] [address] Dr. Agnes Frost Hemoglobin Ql (U) Negative Normal NEGATIVE [facility] Comment on above: Performed By: #### E RUR #### [facility] [address] [place] [address] Dr. Agnes Frost Ketones Ql (U) Negative Normal NEGATIVE [facility] Comment on above: Performed By: #### E RUR #### [facility] [address] [place] [address] Dr. Agnes Frost LEUKOCYTES Negative Normal NEGATIVE [facility] Comment on above: Performed By: #### E RUR #### [facility] [address] [place] [address] Dr. Agnes Frost Nitrite Ql (U) Negative Normal NEGATIVE [facility] Comment on above: Performed By: #### E RUR #### [facility] [address] [place] [address] Dr. Agnes Frost pH (U) 5.5 [pH] Normal 5-9 [facility] Comment on above: Performed By: #### E RUR #### [facility] [address] [place] [address] Dr. Agnes Frost SPEC GRAVITY <=1.005 Abnormal 1.005-<=1.025 [facility] Comment on above: Performed By: #### E RUR #### [facility] [address] [place] [address] Dr. Agnes Frost UA PROTEIN Negative Normal NEGATIVE/ TRACE [facility] Comment on above: Performed By: #### E RUR #### [facility] [address] [place] [address] Dr. Agnes Frost UR MICRO IND NOT INDICATED Normal [facility] Comment on above: Performed By: #### E RUR #### [facility] [address] [place] [address] Dr. Agnes Frost Urobilinogen Qn (U) 0.2 {Anette'U}/dL Normal 0.2 - 1.0 [facility] Comment on above: Performed By: #### E RUR #### [facility] [address] [address] [address] Agnes Frost LIPASEon 01-10-2022 Lipase [Catalytic activity/Vol] 212.0 U/L Normal 73.0-393.0 [facility] Comment on above: Performed By: #### C MP, LIPA, BNP, HSTROPN ####[facility] [address] [address]Dr. Agnes Frost PROF 14(COMP METB)on 022 Albumin [Mass/Vol] 3.9 g/dL Normal 3.4-5.0 [facility] Comment on above: Performed By: #### C MP, LIPA, BNP, HSTROPN #### [facility] [address] [place] [address] Dr. Agnes Frost Albumin/Globulin [Mass ratio] 1.0 {ratio} Normal [facility] Comment on above: Performed By: #### C MP, LIPA, BNP, HSTROPN #### [facility] [address] [place] [address] Dr. Agnes Frost ALP [Catalytic activity/Vol] 115 U/L Normal 46-116 [facility] Comment on above: Performed By: #### C MP, LIPA, BNP, HSTROPN #### [facility] [address] [place] [address] Dr. Agnes Frost ALT [Catalytic activity/Vol] 32 U/L Normal 14-59 [facility] Comment on above: Performed By: #### C MP, LIPA, BNP, HSTROPN #### [facility] [address] [place] [address] Dr. Agnes Frost Anion gap [Moles/Vol] 14.4 mmol/L Normal [facility] Comment on above: Performed By: #### C MP, LIPA, BNP, HSTROPN #### [facility] [address] [place] [address] Dr. Agnes Frost AST [Catalytic activity/Vol] 21 U/L Normal 15-37 [facility] Comment on above: Performed By: #### C MP, LIPA, BNP, HSTROPN #### [facility] [address] [place] [address] Dr. Agnes Frost Bilirubin [Mass/Vol] 0.3 mg/dL Normal 0.2-1.0 [facility] Comment on above: Performed By: #### C MP, LIPA, BNP, HSTROPN #### [facility] [address] [place] [address] Dr. Agnes Frost Calcium [Mass/Vol] 9.7 mg/dL Normal 8.5-10.1 [facility] Comment on above: Performed By: #### C MP, LIPA, BNP, HSTROPN #### [facility] [address] [place] [address] Dr. Agnes Frost Chloride [Moles/Vol] 104 mmol/L Normal 98-107 [facility] Comment on above: Performed By: #### C MP, LIPA, BNP, HSTROPN #### [facility] [address] [place] [address] Dr. Agnes Frost CO2 [Moles/Vol] 22.8 mmol/L Normal 21.0-32.0 [facility] Comment on above: Performed By: #### C MP, LIPA, BNP, HSTROPN #### [facility] [address] [place] [address] Dr. Agnes Frost Creatinine [Mass/Vol] 0.67 mg/dL Normal 0.55-1.02 [facility] Comment on above: Performed By: #### C MP, LIPA, BNP, HSTROPN #### [facility] [address] [place] [address] Dr. Agnes Frost EGFR-AF UGANDAN >60 Normal >=60 [facility] Comment on above: Performed By: #### C MP, LIPA, BNP, HSTROPN #### [facility] [address] [place] [address] Dr. Agnes Frost EGFR-NON AF UGANDAN >60 Normal >=60 [facility] Comment on above: Performed By: #### C MP, LIPA, BNP, HSTROPN #### [facility] [address] [address] [address] Agnes Frost Globulin (S) [Mass/Vol] 4.0 g/dL Normal [facility] Comment on above: Performed By: #### C MP, LIPA, BNP, HSTROPN #### [facility] [address] [place] [address] Dr. Agnes Frost Glucose [Mass/Vol] 101 mg/dL Normal 74-106 [facility] Comment on above: Performed By: #### C MP, LIPA, BNP, HSTROPN #### [facility] [address] [place] [address] Dr. Agnes Frost Potassium [Moles/Vol] 4.2 mmol/L Normal 3.5-5.1 [facility] Comment on above: Performed By: #### C MP, LIPA, BNP, HSTROPN #### [facility] [address] [place] [address] Dr. Agnes Frost Protein [Mass/Vol] 7.9 g/dL Normal 6.4-8.2 [facility] Comment on above: Performed By: #### C MP, LIPA, BNP, HSTROPN #### [facility] [address] [place] [address] Dr. Agnes Frost Sodium [Moles/Vol] 137 mmol/L Normal 136-145 [facility] Comment on above: Performed By: #### C MP, LIPA, BNP, HSTROPN #### [facility] [address] [place] [address] Dr. Agnes Frost Urea nitrogen [Mass/Vol] 16.0 mg/dL Normal 7.0-18.0 [facility] Comment on above: Performed By: #### C MP, LIPA, BNP, HSTROPN #### [facility] [address] [place] [address] Dr. Agnes Frost Urea nitrogen/Creatinin e [Mass ratio] 23.9 mg/mg Normal [facility] Comment on above: Performed By: #### C MP, LIPA, BNP, HSTROPN #### [facility] [address] [address] [address] Agnes Frost PROTIMEon 01-10-2022 INR Coag (PPP) [Relative time] 1.01 {INR} Normal [facility] Comment on above: Performed By: #### P TT, PT #### [facility] [address] [place] [address] Dr. Agnes Frost INR GUIDELINES SEE BELOW Normal The [facility] Comment on above: Result Comment: NAZANIN RED INR: 2.0 - 3.0 CONDITIONS NOT LISTED BELOW 2.5 - 3.5 FOR PROSTHETIC HEART VALVE REPLACEMENT 2.5 - 3.5 RECURRENT THROMBOSIS Performed By: #### P TT, PT #### [facility] [address] [place] [address] Dr. Agnes Frost PT Coag (PPP) [Time] 10.9 s Normal 9.0-11.6 [facility] Comment on above: Performed By: #### P TT, PT #### [facility] [address] [place] [address] Dr. gAnes Frost PTTon 01-10-2022 aPTT Coag (Bld) [Time] 28.8 s Normal 22.3-36.2 [facility] Comment on above: Performed By: #### P TT, PT #### [facility] [address] [place] [address] Dr. Agnes Frost TROPONIN, HIGH SENSITIVITYon 01-10-2022 HSTROP 5.8 pg/mL Normal 4.0-51.3 [facility] Comment on above: Result Comment: CUT- OFF POINTS HAVE BEEN ESTABLISHED BASED ON THE FOURTH UNIVERSAL DEFINITIONS OF MYOCARDIAL INFARCTION. THE UPPER REFERENCE LIMIT (URL) OF TROPONIN, DEFINED THE 99TH PERCENTILE OF cTnI DISTRIBUTION IN A REFERENCE POPULATION, HAS BEEN CONFIRMED THE DECISION THRESHOLD FOR OK DIAGNOSIS. Performed By: #### C MP, LIPA, BNP, HSTROPN ####[facility] [address] [address]Dr. Yimariana Frost XR CHEST 1 Von 01-10-2022 XR CHEST 1 V EXAMINATION: XR CHES T 1 V HISTORY: CHEST PAIN, UNSPECIFIED COMPARISON: 10/03/2021 TECHNIQUE: AP portable erect FINDINGS: LUNGS: No significant pulmonary parenchymal abnormalities. VASCULATURE: No increased pulmonary vasculature. PLEURA: No pneumothorax, effusion, or pleural thickening. CARDIAC: No cardiomegaly or cardiac silhouette abnormality. MEDIASTINUM: No visible mass or adenopathy. BONES: No fracture or visible bone lesion. OTHER: Negative. IMPRESSION: No acute disease. Electronically authenticated by: AMINA LEE Date: 2022-01-10 15:00 Normal [facility] PROGRESSon 06-21-2017 PROGRESS HNO ID: [id number]: Katie Dacostaice: (none)Author Type: PhysicianType: Progress NotesFiled: 06/21/2017 3:15 AMNote Text:DATE OF SERVICE: 06/18/2017PROBLEM: Ketty Roca presents for follow up.SURGERY AND DATE: 11/04/2015Vulvar wide local excisionPATHOLOGY:Vulva , partial vulvectomy:- High-grade squamous intraepithelial lesion (JULIENNE 3, classic type, wartysubtype). See comment.FAK/rw 11/08/2015COMMENTThe margins of resection are uninvolved.SUBJECTIVE/I NTERVAL HISTORY: Ketty Roca reports that she feels well. No fever or chills. No shortness of breath, cough, or chest pain.Patient reports that her appetite is good. No abdominal pain, nausea,vomiting, diarrhea, or constipation. No dysuria, gross hematuria, urinaryfrequency, urinary urgency, or incontinence. Her ECOG performance statusis zero (fully active, able to carry on all pre-disease performancewithout restriction). She had her hysterectomy done by Dr. Zaldivar and sheis doing well and recovered well with no problems.Katie Pinto MDOBJECTIVE:VITALS: BP 134/77 Pulse 93 Temp 37.2 ?C (98.9 ?F) (Oral) Resp 16 Ht 168.9 cm (5' 6.5 ) Wt 91.8 kg (202 lb 6.4 oz) BMI 32.18 kg/i4RDXYP: Normocephalic, atraumatic, mucus membranes moist and no lesionsLUNGS: Normal efforts.ABDOMEN: soft, non tenderPELVIC: External genitalia normal, no lesion or abnormal area.LOWER EXTREMITIES: No pitting edema, no palpable cords and no skinchanges.ASSESSMENT: Ms. 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 No clinical evidence of vulvar lesion or disease2. I advised her to follow with Dr. Zaldivar in the future. I am availableif Eyal Pinto MD, MPH15 min spent with the patient with >50% face to face counselingA letter and a copy of this office note were sent to:Antony Zaldivar MD[address] [id number]:Nik Weller MD (PCP) [facility] CNOVon 06-18-2017 CNOV Office Visit (GYNOSA) RAHAT KETTY NOEL ([id number]) 1970 FDate Time Provider Hxukgwsazi68/7/17 2:40 PM KATIE PINTO During your visit today, we recorded the following information about you: Temperature Pulse Respiration Blood pressure 98.9 degrees 93/minute 16/minute 134/77 Weight Height 91.8 kg 1.689 Ximena Pinto MD 06/21/2017 3:15 AM SignedDATE OF SERVICE: 06/18/2017PROBLEM: Ketty Roca presents for follow up.SURGERY ANDamp; DATE: 11/04/2015Vulvar wide local excisionPATHOLOGY:Vulva , partial vulvectomy:- High-grade squamous intraepithelial lesion (JULIENNE 3, classic type, wartysubtype). See comment.FAK/rw 11/08/2015COMMENTThe margins of resection are uninvolved.SUBJECTIVE/I NTERVAL HISTORY: Ketty Roca reports that she feels well. Nofever or chills. No shortness of breath, cough, or chest pain. Patientreports that her appetite is good. No abdominal pain, nausea, vomiting,diarrhea, or constipation. No dysuria, gross hematuria, urinary frequency,urinary urgency, or incontinence. Her ECOG performance status is zero (fullyactive, able to carry on all pre-disease performance without restriction). Shehad her hysterectomy done by Dr. Zaldivar and she is doing well and recoveredwell with no problems.Katie Pinto MDOBJECTIVE:VITALS: BP 134/77 Pulse 93 Temp 37.2 ?C (98.9 ?F) (Oral) Resp 16 Ht168.9 cm (5' 6.5ANDquot;) Wt 91.8 kg (202 lb 6.4 oz) BMI 32.18 kg/g4ZAWXI: Normocephalic, atraumatic, mucus membranes moist and no lesionsLUNGS: Normal efforts.ABDOMEN: soft, non tenderPELVIC: External genitalia normal, no lesion or abnormal area.LOWER EXTREMITIES: No pitting edema, no palpable cords and no skin changes.ASSESSMENT:Ms. Roca is a very pleasant 45 yo women with JULIENNE-3 classic type s/p vulvarWLE with negative margins who is here for follow upPLAN: .1. No clinical evidence of vulvar lesion or disease2. I advised her to follow with Dr. Zaldivar in the future. I am available ifneededKatie Pinto MD, MPH15 min spent with the patient with ANDgt;50% face to face counselingA letter and a copy of this office note were sent to:Antony Zaldivar MD[address] [phone]:Nik Weller MD (PCP)Referring Provider: KATIE PINTO [[id number]]Allergies As of Date: 06/18/2017(No Known Allergies)Date Reviewed: 06/18/2017Reviewed by: Joana Castellano - Fully AssessedReason for Visit: Vulvar dysplasia [Other] Cmt: 6 month follow upPrimary Visit Diagnosis: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]Prescriptions as of 06/18/2017 Sig: FLUOXETINE 40 MG CAPSULE Take 40 mg by mouth once angie* TRAMADOL 50 MG TABLET Take 50 mg by mouth as needed.Problem List As Of Date 06/18/2017 Noted Resolved 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] INVALID FOR* Status:Closed by KATIE PINTO MD on 06/21/17 Normal [facility] Vital Signs Date Time Vital Sign Value Performing Clinician Faci lity 04-19-2019 11:38-0400 BP Diastolic 85 mm[Hg] Chana Polo [place], [place] 04-19-2019 11:38-0400 BP Systolic 131 mm[Hg] [place] 04-19-2019 11:38-0400 Pulse (Heart Rate) 79 /min Chana Escamilla [facility], [place] 04-19-2019 11:38-0400 Pulse Oximetry 99 % [place] 04-19-2019 11:38-0400 Respiratory Rate 14 /min [facility] [place] 04-19-2019 10:21-0400 BMI (Body Mass Index) 31.32 kg/m2 [place] 04-19-2019 10:21-0400 Body Temperature 97.81 [degF] Chana Polo [facility], [place] 04-19-2019 10:21-0400 Body weight 93.44 kg [place] 04-19-2019 10:21-0400 Height 172.7 cm [place] Encounters Encounter Date Encounter Type Care Provider Facility Start: 02-11-2024 End: 02-11-2024 ambulatory [facility] Start: 12-02-2022 End: 12-02-[address] DOCTOR KIDD Facility:[facility] Start: 01-10-2022 End: 01-11-[address] DOCTOR KIDD Facility:[facility] Start: 04-19-2019 End: 04-19-2019 [facility] Start: 04-19-2019 End: 04-19-2019 Emergency department patient visit Chana Edward Polo [facility] ED Comment on above: Right arm pain (Prim garry Dx); Contusion of right elbow, initial encounter; Ulnar neuropathy at elbow of right upper extremity Start: 06-18-2017 End: 06-24-2017 Ambulatory KATIE [facility] Procedures Date Procedure Procedure Detail Performing Clinician Start: 02-11-2024 Follow-up visit Follow-up MALCOLM OSORIO Start: 04-19-2019 ED NURSING COMMUNICATION CHANA POLO Plan of Treatment Date Care Activity Detail Author Start: 04-12-2019 Influenza vaccination Flu vaccine (# 1) [place], [place] Start: 2018 [facility] [place] [place] Payers Date Payer Category Payer Medicare MEDICARE MEDICAR E PART A AND B xxxxxxxxxxx 2012-Present [phone] [address] [address] [place] [address] xxxxxxxxxxx [id number] 2005 Unknown [id number] 2005 Unknown GENERIC MCO GENE NEDRA MCO WC xxxxxxxx 2005-Present [address] [place] [address] xxxxxxxx [id number] 1968 Unknown [id number] 1968 Unknown [id number] 1968 Unknown [id number] 1968 Unknown [id number] 1961 Medicaid [id number] 1961 Medicare [id number] Social History Date Type Detail Facility Start: [facility]-19-2019 [facility] Start: 04-19-2019 Cigarettes smoked current (pack per day) - Reported [facility] Sex Assigned At Not on file [place], [place] Summary Purpose Family History No Family History Records FoundNo Family History Records FoundNo Family History Records FoundNo Family History Records Found Advance Directives No Advanced Directives Records FoundDocuments on File Type Date Recorded 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 * Contusion (Pashto) documented in this encounter Assessments Diagnosis Right arm pain- Primary Pain in limb Contusion of right elbow, initial encounter Ulnar neuropathy at elbow of right upper extremity Additional Source Comments INFORMATION SOURCE (unrecogn ized section and content) DATE CREATED AUTHOR 02/04/2018 [facility] DATE CREATED AUTHOR AUTHOR'S ORGANIZ ATION 04/19/2019 [facility] DATE CREATED AUTHOR AUTHOR'S ORGANIZ ATION 12/05/2022 [facility] DATE CREATED AUTHOR AUTHOR'S ORGANIZ ATION 02/12/2024 [facility] Reason for Visit (unrecogniz ed section and content) Reason Comments Arm Pain Right elbow, chronic . Pt states worse after reaching for a box at work today FOR RECORDS PERTAINING TO PATIENTS WHO ARE OR HAVE BEEN ENROLLED IN A CHEMICAL DEPENDENCY/SUBSTANCEABUSE PROGRAM, SOME INFORMATION MAY BE OMITTED. This clinical summary was aggregated from multiple sources. Caution should be exercised in using it in the provision of clinical care. This summary normalizes information from multiple sources, and as a consequence, information in this document may materially change the coding, format and clinical context of patient data. In addition, data may be omitted in some cases. CLINICAL DECISIONS SHOULD BE BASED ON THE PRIMARY CLINICAL RECORDS. [employer] provides no warranty or guarantee of the accuracy or completeness of information in this document.
--- NOTE | 2024-06-02 17:01 | ED_ITS ---
HPI - Chest Pain General Chief Complaint: Chest Pain Stated Complaint: CHEST PAIN Time Seen by Provider: 06/02/24 16:45 Source: patient Mode of arrival: walk-in History of Present Illness HPI narrative: Patient is a 54-year-old female with a history of intermittent chest pain for several years who presents to the ER for 30-minute history of pain in the retrosternal chest radiating to the right side of the neck. Pain is worse with deep breathing. She denies any mechanism of injury or trauma. She sees a security team lead in [place], she was most recently seen 3 to 4 months ago and started on isosorbide. She took 2 aspirin prior to arrival. She states she has never been diagnosed with a heart attack, coronary artery disease, or stroke. She is a heavy smoker. She states she had a stress test within the last several years. She has never had a cardiac catheterization. She denies recent illness, pedal edema. Risk Factors Coronary artery disease risk factors: diabetes, smoking history, hyperlipidemia and hypertension Related Data Home Medications ?Medication ?Instructions ?Recorded ?Confirmed fluoxetine 20 mg capsule 40 mg PO QAM 03/18/23 06/02/24 nitroglycerin 0.4 mg sublingual 0.4 mg sublingual Q5M PRN chest 03/18/23 06/02/24 tablet pain rosuvastatin 20 mg tablet 20 mg PO DAILY 03/18/23 06/02/24 buspirone 15 mg tablet 7.5 mg PO BID 12/27/23 06/02/24 acetaminophen 650 mg 650 mg PO DAILY 06/02/24 06/02/24 tablet,extended release (Arthritis Pain Reliever) aspirin 325 mg tablet 325 mg PO QAM 06/02/24 06/02/24 aspirin 81 mg tablet,delayed 81 mg PO QPM 06/02/24 06/02/24 release (Adult Low Dose Aspirin) coenzyme Q10 100 mg capsule 200 mg PO DAILY 06/02/24 06/02/24 (CoQ-10) fluoxetine 20 mg capsule 20 mg PO QPM 06/02/24 06/02/24 ibuprofen 200 mg capsule 400 mg PO QPM 06/02/24 06/02/24 isosorbide mononitrate 30 mg 30 mg PO DAILY 06/02/24 06/02/24 tablet,extended release 24 hr Allergies Allergy/AdvReac Type Severity Reaction Status Date / Time No Known Drug Allergies Allergy Verified 03/18/23 09:54 Review of Systems ROS Constitutional Denies: fever or chills Ears, nose, mouth, and throat Denies: throat pain Cardiovascular Reports: chest pain; Denies: palpitations Respiratory Denies: shortness of breath or cough Gastrointestinal Denies: nausea or vomiting Musculoskeletal Reports: neck pain; Denies: back pain Neurological Denies: numbness in extremities or weakness in extremities Hematologic/Lymphatic Denies: easy bruising or easy bleeding PFSH PFS Social History Little interest or pleasure in doing things: not at all Feeling down, depressed, or hopeless: not at all Exam Narrative Exam Narrative: Gen.: Awake, alert, in no distress Head: Normocephalic, atraumatic ENT: Moist mucous membranes Respiratory: No respiratory distress, lungs clear bilaterally Cardio: Regular rate and rhythm Gastrointestinal: Abdomen is soft, nondistended and nontender to palpation Extremities: Moves extremities equally, no pedal edema Psych: Normal mood and affect Neuro: No focal neuro deficit Skin: Warm, dry, intact Constitutional Vital Signs, click to edit/add: Last Vital Signs Temp 98.3 F 06/02/24 16:48 Pulse 67 06/02/24 19:40 Resp 13 06/02/24 19:40 BP 154/96 H 06/02/24 19:30 Pulse Ox 99 06/02/24 18:00 O2 Del Method Room Air 06/02/24 16:48 Course Vital Signs Vital signs: Vital Signs Temperature 98.3 F 06/02/24 16:48 Pulse Rate 83 06/02/24 16:48 Respiratory Rate 24 H 06/02/24 16:48 Blood Pressure 168/89 H 06/02/24 16:48 Pulse Oximetry 98 06/02/24 16:48 Oxygen Delivery Method Room Air 06/02/24 16:48 Temperature 98.3 F 06/02/24 16:48 Pulse Rate 67 06/02/24 19:40 Respiratory Rate 13 06/02/24 19:40 Blood Pressure 154/96 H 06/02/24 19:30 Pulse Oximetry 99 06/02/24 18:00 Oxygen Delivery Method Room Air 06/02/24 16:48 MDM - Chest Pain MDM Narrative Medical decision making narrative: Patient was treated with sublingual nitro, she took aspirin prior to arrival. She had no improvement of pain with nitroglycerin and was given additional Toradol. She rested comfortably in the ER and had 2 negative troponins. Chest x-ray is unremarkable and D-dimer was normal as well. She has no EKG changes, she was reevaluated by attending physician prior to discharge. She has a heart score of 3 for her age and risk factors family history, smoking and hypertensive, hypercholesterolemia medications at home. She has a security team lead she can follow-up with. She had no worsening of her symptoms in the ER and is discharged home to follow-up with cardiology, return to the ER if symptoms change or worsen SHARED APC VISIT, PHYSICIAN ATTESTATION: [id number] I performed a substantive part of the MDM during the patient?s E/M visit. I personally evaluated and examined the patient. I personally made or approved the documented management plan and acknowledge its risk of complications. Medical Records Data Attestation: I reviewed the patient's medical records. Lab Data Attestation: I reviewed the patient's lab results. Labs: Lab Results 06/02/24 06/02/24 06/02/24 Range/Units 17:02 17:33 19:10 WBC 10.7 (4.0-11.0) 10^3/uL RBC 3.90 L (4.20-5.40) 10^6/uL Hgb 12.0 (12.0-16.0) g/dL Hct 36.1 (36.0-48.0) % MCV 92.6 (81.0-99.0) fL MCH 30.8 (26.7-34.0) pg MCHC 33.2 (29.9-35.2) g/dL RDW 13.6 (11.0-15.0) % Plt Count 349 (150-450) 10^3/uL MPV 9.8 (9.5-13.5) fL Neut % (Auto) 48.7 (43.0-75.0) % Lymph % (Auto) 40.8 (20.5-60.0) % Stokes % (Auto) 7.4 (1.7-12.0) % Eos % (Auto) 2.0 (0.9-7.0) % Baso % (Auto) 0.9 (0.2-2.0) % Neut # (Auto) 5.2 (1.4-6.5) 10^3/uL Lymph # (Auto) 4.4 H (1.2-3.8) 10^3/uL Stokes # (Auto) 0.8 (0.3-0.8) 10^3/uL Eos # (Auto) 0.2 (0.0-0.7) 10^3/uL Baso # (Auto) 0.1 (0.0-0.1) 10^3/uL Abs Immat Gran (auto) 0.02 (0.00-0.03) 10^3/uL Imm/Tot Granulo (auto) 0.2 (0.0-0.5) % PT 11.1 (9.0-11.6) sec INR 1.05 D-Dimer 0.30 (<=0.59) mg/L FEU Sodium 142 (136-145) mmol/L Potassium 3.9 (3.5-5.1) mmol/L Chloride 105 (98-107) mmol/L Carbon Dioxide 24.1 (21.0-32.0) mmol/L Anion Gap 16.8 BUN 17.0 (7.0-18.0) mg/dL Creatinine 0.72 (0.55-1.02) mg/dL Est GFR ( Amer) >60 (>=60 mL/min/1.73m^2) Est GFR (Non-Af Amer) >60 (>=60 mL/min/1.73m^2) BUN/Creatinine Ratio 23.6 Glucose 85 (74-106) mg/dL Calcium 9.5 (8.5-10.1) mg/dL Total Bilirubin 0.4 (0.2-1.0) mg/dL AST 31 (15-37) U/L ALT 34 (14-59) U/L Alkaline Phosphatase 91 (46-116) U/L Troponin I High Sens 5.4 <4.0 L (4.0-51.3) pg/mL NT-Pro-B Natriuret Pep 92.0 (<=900.0) pg/mL Total Protein 7.4 (6.4-8.2) g/dL Albumin 3.8 (3.4-5.0) g/dL Globulin 3.6 g/dL Albumin/Globulin Ratio 1.1 Lipase 36.0 (16.0-77.0) U/L Imaging Data Chest x-ray: Attestation: I have reviewed the pertinent imaging results. Radiologist's impression: ITS Impressions Chest X-Ray 06/02/24 18:09 IMPRESSION: No acute findings. Electronically authenticated by: LEAH PATRICK Date: 06/02/2024 18:57 ECG Data Attestation: I personally reviewed and interpreted this ECG as follows: (Normal sinus rhythm at a rate of [address] elevation or ectopy. EKG reviewed by attending physician) Heart Score History: Slightly/Non-Suspicious ECG: Normal Age: >45-<65 years Risk Factors: >3 Risk Factors/ HX of CAD:2 Troponin: <Normal Limit Total Heart Score Recommendations & Risks:: 3 Discharge Plan Discharge Chief Complaint: Chest Pain Clinical Impression: Atypical chest pain Patient Disposition: Home, Self-Care Time of Disposition Decision: 19:44 Condition: Good Prescriptions / Home Meds: No Action fluoxetine 20 mg capsule 40 mg PO QAM rosuvastatin 20 mg tablet 20 mg PO DAILY nitroglycerin 0.4 mg tablet, sublingual 0.4 mg sublingual Q5M PRN (Reason: chest pain) buspirone 15 mg tablet 7.5 mg PO BID isosorbide mononitrate 30 mg tablet extended release 24 hr 30 mg PO DAILY aspirin 325 mg tablet 325 mg PO QAM coenzyme Q10 [CoQ-10] 100 mg capsule 200 mg PO DAILY acetaminophen [Arthritis Pain Reliever] 650 mg tablet extended release 650 mg PO DAILY aspirin [Adult Low Dose Aspirin] 81 mg tablet,delayed release (DR/EC) 81 mg PO QPM fluoxetine 20 mg capsule 20 mg PO QPM ibuprofen 200 mg capsule 400 mg PO QPM Print Language: Turkish Instructions: Chest Pain (ED) Referrals: Physician,Non-Staff, MD [Primary Care Provider] - 1 week
[2024-06-02 17:22] LABS: Basophils Absolute Auto 0.1 10^3/uL (0.0-0.1); Basophils Percent Auto 0.9 % (0.2-2.0); Eosinophils Absolute Auto 0.2 10^3/uL (0.0-0.7); Hematocrit 36.1 % (36.0-48.0); Immature Granulocytes Abs Auto 0.02 10^3/uL (0.00-0.03); Immature Granulocytes Pct Auto 0.2 % (0.0-0.5); Lymphocytes Absolute Auto 4.4 10^3/uL (1.2-3.8); Lymphocytes Percent Auto 40.8 % (20.5-60.0); Mean Corpuscular HGB Conc 33.2 g/dL (29.9-35.2); Mean Corpuscular Hemoglobin 30.8 pg (26.7-34.0); Mean Corpuscular Volume 92.6 fL (81.0-99.0); Mean Platelet Volume 9.8 fL (9.5-13.5); Monocytes Absolute Auto 0.8 10^3/uL (0.3-0.8); Monocytes Percent Auto 7.4 % (1.7-12.0); Neutrophils Absolute Auto 5.2 10^3/uL (1.4-6.5); Neutrophils Percent Auto 48.7 % (43.0-75.0); Platelet Count 349 10^3/uL (150-450); Red Cell Distribution Width 13.6 % (11.0-15.0); White Blood Count 10.7 10^3/uL (4.0-11.0)
[2024-06-02] MEDS: NITROGLYCERIN 0.4 MG BOTTLE SL (17:25)
[2024-06-02 17:35] LABS: INR 1.05; Prothrombin Time 11.1 sec (9.0-11.6)
[2024-06-02] MEDS: KETOROLAC TROMETHAMINE 30 MG/ML VIAL IVP (17:40)
[2024-06-02 18:06] LABS: Alanine Aminotransferase 34 U/L (14-59); Albumin Globulin Ratio 1.1; Albumin Level 3.8 g/dL (3.4-5.0); Alkaline Phosphatase 91 U/L (46-116); Anion Gap 16.8; Aspartate Amino Transferase 31 U/L (15-37); BUN Creatinine Ratio 23.6; Bilirubin Total 0.4 mg/dL (0.2-1.0); Calcium 9.5 mg/dL (8.5-10.1); Carbon Dioxide 24.1 mmol/L (21.0-32.0); Chloride 105 mmol/L (98-107); Estimated GFR (African America >60 (>=60 mL/min/1.73m^2); Estimated GFR (Non-African Ame >60 (>=60 mL/min/1.73m^2); Globulin 3.6 g/dL; Glucose 85 mg/dL (74-106); Potassium 3.9 mmol/L (3.5-5.1); Sodium 142 mmol/L (136-145); Total Protein 7.4 g/dL (6.4-8.2); Troponin I High Sensitivity 5.4 pg/mL (4.0-51.3)
--- NOTE | 2024-06-02 18:09 | XR_ITS ---
[address] [address] Patient Name: WINIFRED MARTINEZ MRN: [id number] date: 1970 Sex: F Assigned Patient Location: ER Current Patient Location: ED.MAIN Accession/Order Number: [id number] Exam Date: 06/02/2024 18:05 Report Date: 06/02/2024 18:57 At the request of: JOSEPH BRUCE Procedure: XR chest 1V PORTABLE CHEST X-RAY. INDICATION: Chest pain. COMPARISON: 12/27/2023 TECHNIQUE: Single AP portable chest radiograph. FINDINGS: TUBES AND LINES: None. LUNGS: Lungs are clear. PLEURA: No effusions or pneumothorax. HEART AND MEDIASTINUM: Within normal limits for portable technique. OSSEOUS STRUCTURES: No acute abnormality. XR/XR chest 1V IMPRESSION: No acute findings. Electronically authenticated by: LEAH PATRICK Date: 06/02/2024 18:57
[2024-06-02 19:36] LABS: Troponin I High Sensitivity <4.0 pg/mL (4.0-51.3)
== END 2024-06-02 19:51 | disposition home or self-care (01) ==
PROVIDERS: Emergency Medicine; Physician Assistant; Emergency Provider Emergency Medicine; PCP Family Medicine
DX: R07.89 Other chest pain (principal); F17.200 Nicotine dependence, unspecified, uncomplicated
CPT/HCPCS: 36415; 71045; 80053; 83690; 83880; 84484; 85025; 85378; 85610; 93005; 96374; 99285; J1885

== ENCOUNTER 2024-09-30 12:24 | Emergency (ER) | payer MEDICARE, SELFPAY ==
[2024-09-30] VITALS (13 sets, daily range): BP systolic 129–140; BP diastolic 68–82; PULSE 67–78; TEMP 37.1; O2SAT 97–100; BMI 31.3
--- NOTE | 2024-09-30 12:42 | ECG_ITS ---
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
--- OUTSIDE RECORDS SUMMARY | 2024-09-30 12:50 | XMS_ITS | CCD ---
Author Organization [facility] Care Team Providers Care Professor/Nurse Anesthetist Name Role Phone MAHDI, KATIE Unavailable Unavailable MAHCORONA, KATIE Unavailable Unavailable CHANA POLO Attending Unavailab LIN Diaz Primary Care Unavailable Lin Weller Primary Care Provider [facility], DR MARTINEZ Primary Care Unavailable SHANTA ., ANA Admitting Unavailable SHANTA ., ANA Attending Unavailable SHANTA ., ANA Consulting Unavailable MARTI, DR MARTINEZ Primary Care Unavailable DANNIE ., DR RIGGS Admitting Unavailable HOSaurabh ., DR RIGGS Attending Unavailable HOY ., DR RIGGS Consulting Unavailable [place] Consulting Unavailable ZIEBER, DR NIALL Rubio Consulting Unavailable PAY ., DR HERRERA Consulting Unavailable GRECHNY ., DONIS RUIZ Consulting UnavailDUSTIN Eastman Attending Unavailable LIN WELLER Referring Unavailable LIN WELLER Primary Care Unavailable Lin Weller MD Primary Care Provider Allergies Allergy Classification Reported Allergen(s) Allergy Type Date of Onset Reaction(s) Facility (1 source) bee venom Drug allergy (disorder) [address] [facility] Repository (5 sources) BEE VENOM PROTEIN (HONEY BEE); 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: [BEE VENOM PROTEIN (HONEY BEE)] Propensity to adverse reactions to drug (disorder) 8 [facility] Medications Current Medications Medication Drug Class(es) Dates Sig (Normalized) Sig (Original) 8 hr acetaminophen 650 mg extended release oral tablet (4 sources) take 1 tablet by mouth every eight hours in the morning acetaminophen (TYLENOL ARTHRITIS) 650 mg 8 hr tablet Take 1 tablet (650 mg total) by mouth in the morning. Active acetaminophen 325 mg / oxyCODONE hydrochloride 5 mg oral tablet (1 source) Opioid Agonist Start: 04-19-2019 End: 04-22-2019 take 1 tablet by mouth every six hours as needed for pain oxyCODONE-acetamino phen (PERCOCET) 5-325 MG per tablet Indications: Right arm pain , Contusion of right elbow, initial encounter , Ulnar neuropathy at elbow of right upper extremity Take 1 tablet by mouth every 6 hours as needed for Pain for up to 3 days. 10 tablet 0 04/19/2019 04/22/2019 Active [id number] 200 actuat albuterol 0.09 mg/actuat metered dose inhaler (4 sources) beta2-Adrenergic Agonist Start: 02-18-2019 take 2 puff(s) by mouth every six hours as needed for wheezing VENTOLIN HFA 90 mcg/actuation inhaler Indications: Subacute sinusitis, unspecified location INHALE 2 PUFFS BY MOUTH EVERY 6 HOURS NEEDED FOR WHEEZING 18 Inhaler 02/18/2019 Active aspirin 81 mg delayed release oral tablet (5 sources) Platelet Aggregation Inhibitor, Nonsteroidal Anti-inflammatory Drug take 1 tablet by mouth in the morning aspirin 81 mg Take 1 tablet (81 mg total) by mouth in the morning. Active End: 02-11-2024 take 1 tablet by mouth in the morning aspirin 325 mg tablet Take 1 tablet (325 mg total) by mouth in the morning. 02/11/2024 Discontinued (Dose adjustment) Biotin (4 sources) take 29063 mg by dorene th in the morning BIOTIN ORAL Take 10,000 mg by mouth in the morning. Active take 1000 mg by mouth in the mor jase BIOTIN ORAL Take 1,000 mg by mouth in the morning. Active black cohosh extract 540 mg oral capsule (4 sources) take 1 capsule by mouth once daily black cohosh 540 mg capsule Take by mouth daily. Active busPIRone hydrochloride 7.5 mg oral tablet (2 sources) take 1 tablet by mouth at bedtime busPIRone (BUSPAR) 7.5 mg tablet Take 1 tablet (7.5 mg total) by mouth in the morning and at bedtime. Active Cinnamon Bark (4 sources) take 2000 mg by mouth in the morning cinnamon bark (CINNAMON ORAL) Take 2,000 mg by mouth in the morning. Active etodolac 400 mg oral tablet (1 source) Nonsteroidal Anti-inflammatory Drug Start: 9 take 1 tablet by mouth twice daily etodolac (LODINE) 400 MG tablet Take 1 tablet by mouth 2 times daily 30 tablet 0 04/19/2019 Active Start: 04-19-2019 take 1 tablet by dorene th twice daily etodolac (LODINE) 400 MG tablet Take 1 tablet by mouth 2 times daily 30 tablet 0 04/19/2019 Active FLUoxetine 20 mg oral tablet (5 sources) Serotonin Reuptake Inhibitor Start: 12-25-2016 FLUoxetine (PROzac) 20 MG tablet 40 mg in am and 20 mg pm 12/25/2016 Active take 2 capsules by mouth once da rayne FLUoxetine (PROZAC) 20 MG capsule Take 40 mg by mouth daily 0 Active ibuprofen/diphenhydramine ci t (IBUPROFEN PM ORAL) (4 sources) ibuprofen/diphen hydramine cit (IBUPROFEN PM ORAL) Take by mouth nightly. Active 24 hr isosorbide mononitrate 30 mg extended release oral tablet (2 sources) Nitrate Vasodilator Sta rt: 4 take 1 tablet by mouth once daily isosorbide mononitrate (IMDUR) 30 mg 24 hr tablet Take 1 tablet (30 mg total) by mouth daily. 90 tablet 3 02/11/2024 Active multivit with minerals/lutei n (MULTIVITAMIN 50 PLUS ORAL) (4 sources) multivit with minerals/lutein (MULTIVITAMIN 50 PLUS ORAL) Take by mouth daily. Active nitroglycerin 0.4 mg sublingual tablet (4 sources) Nitrate Vasodilator nitroglycerin (NITRO STAT) 0.[address] 1 tablet (0.4 mg total) under the tongue every 5 (five) minutes as needed for chest pain. Active rosuvastatin calcium 20 mg oral tablet (5 sources) HMG-CoA Reductase Inhibitor Sta rt: 3 End : 5 take 1 tablet by mouth in the morning rosuvastatin (CRESTOR) 20 mg tablet Indications: Mixed hyperlipidemia , Chest pain, unspecified type , Tobacco abuse Take 1 tablet (20 mg total) by mouth in the morning. 90 tablet 09/14/2024 Active ubidecarenone/vitamin E mixe d (COQ10 SG 100 ORAL) (4 sources) ubidecarenone/vi tamin E mixed (COQ10 SG 100 ORAL) Take 200 mg by mouth in the morning. Active ubidecarenone/vi tamin E mixed (COQ10 SG 100 ORAL) Take 100 mg by mouth in the morning. Active Completed/Discontinued Medications Medication Drug Class(es) Dates [...] Active Problems Problem Classification Problem Date Documented Da te Episodic/Chronic Coronary atherosclerosis and other heart disease (4 sources) Other forms of angina pectoris; 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: [Angina pectoris] Onset: 12-04-2021 02-11-2024 Chronic Disorders of lipid metabolism (6 sources) Pure hypercholesterolem ia, unspecified; 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: [Mixed hyperlipidemia] Onset: 12-04-2021 09-14-2024 Chronic Nonspecific chest pain (7 sources) Chest pain, unspecified; 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: [Other chest pain] Onset: 12-04-2021 Episodic Other aftercare (1 source) 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; 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: [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] Onset: 12-04-2022 Episodic Other aftercare (1 source) Other intermediate (current) drug therapy; 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: [OTH SENIOR CARE CURRENT DRUG THERAPY] Onset: 12-04-2022 Episodic Other nervous system disorders (2 sources) Ulnar neuropathy; 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] Onset: 04-19-2019 04-19-2019 Chronic Other upper respiratory infections (4 sources) Sinusitis; 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: [Chronic sinusitis, unspecified] Onset: 05-01-2018 05-01-2018 Chronic Residual codes; unclassified (1 source) Tobacco user; 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: [Tobacco use] 09-14-2024 Episodic Spondylosis; intervertebral disc disorders; other back problems (4 sources) Muscle spasm of back; 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: [MUSCLE SPASM OF BACK] Onset: 12-02-2022 Episodic Substance-related disorders (1 source) Nicotine dependence, cigarettes, uncomplicated; 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: [NICOTINE DEPEND CIGARETTES UNCOMP] Onset: 01-15-2022 Chronic Unclassified (1 source) Unknown / UNK(Unknown) Onset: 06-18-2017 Unclassified (2 sources) Contusion of right elbow; 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: [Contusion of right elbow, initial encounter] Onset: 04-19-2019 04-19-2019 Unclassified (1 source) CONTACT W/AND (SUSP) EXPOS COVID-19; 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: [CONTACT W/AND (SUSP) EXPOS COVID-19] Onset: 01-15-2022 Past or Other Problems Problem Classification Problem Date Documented Da te Episodic/Chronic Malaise and fatigue (4 sources) Fatigue; 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: [Other fatigue] Onset: 02-11-2018 02-11-2018 Episodic Other connective tissue disease (2 sources) Pain in right arm; 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: [Right arm pain] Onset: 04-19-2019 04-19-2019 Episodic Other connective tissue disease (1 source) Pain in left arm; 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: [PAIN IN LEFT ARM] Onset: 01-15-2022 Episodic Other lower respiratory disease (1 source) Shortness of breath; 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: [SHORTNESS OF BREATH] Onset: 01-15-2022 Episodic Other lower respiratory disease (4 sources) Apnea; 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: [Apnea, not elsewhere classified] Onset: 01-14-2018 01-14-2018 Episodic Other skin disorders (1 source) Generalized hyperhidrosis; 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: [GENERALIZED HYPERHIDROSIS] Onset: 01-15-2022 Episodic Other upper respiratory disease (4 sources) Deviated nasal septum; 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: [Deviated nasal septum] Onset: 01-14-2018 01-14-2018 Episodic Other upper respiratory infections (4 sources) Sinusitis; 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: [Acute sinusitis, unspecified] Onset: 12-17-2017 Resolved: 01-14-2018 01-14-2018 Episodic Results Test Name Value Interpretation Reference Range Facility T4 LABCORPon 01-12-2022 T4 [Mass/Vol] 5.4 ug/dL Normal 4.5-12.0 [facility] Comment on above: Performed By: #### T 4LC ####[facility] [address] [address]Dr. Agnes Frost BNPon 01-11-2022 Natriuretic peptide B (Bld) [Mass/Vol] 17.0 pg/mL Normal <=900.[address] [facility] Comment on above: Performed By: #### B GENERAL CONTRACTOR, CMP #### [facility] [address] [address] [address] Agnes Frost CBC AUTO DIFFon 01-11-2022 BASO # 0.1 103/ul Normal 0.0-0.[address] [facility] Comment on above: Performed By: #### C BC ####[facility] [address] [address]DrOchoa Frost Basophils/100 WBC (Bld) 1.0 % Normal 0.2-2.[address] [facility] Comment on above: Performed By: #### C BC ####[facility] [address] [address]Dr. Agnes Frost EO # 0.4 103/ul Normal 0.0-0.[address] [facility] Comment on above: Performed By: #### C BC ####[facility] [address] [place], [place] [address]DrOchoa Frost Eosinophils/100 WBC (Bld) 4.2 % Normal 0.9-7.[address] [facility] Comment on above: Performed By: #### C BC ####[facility] [address] [place], [place] [address]DrOchoa Frost Erythrocyte distribution width (RBC) [Ratio] 14.0 % Normal 11.0-15.[address] [facility] Comment on above: Performed By: #### C BC ####[facility] [address] [place], [place] [address]DrOchoa Frost Hematocrit (Bld) [Volume fraction] 39.2 % Normal 36.0-48.[address] [facility] Comment on above: Performed By: #### C BC ####[facility] [address] [place], [place] [address]DrOchoa Frost Hemoglobin (Bld) [Mass/Vol] 12.5 g/dL Normal 12.0-16.[address] [facility] Comment on above: Performed By: #### C BC ####[facility] [address] [address]Dr. Agnes Santosh IG # 0.02 10e3/ul Normal 0.00-0.03 [facility] Comment on above: Performed By: #### C BC ####[facility] [address] [address]Dr. Agnes Santosh IG % 0.2 % Normal 0.0-0.[address] [facility] Comment on above: Performed By: #### C BC ####[facility] [address] [place], [place] [address]DrOchoa Agnes Santosh LYMPH # 4.3 103/ul Critically high 1.2-3.8 [facility] Comment on above: Performed By: #### C BC ####[facility] [address] [place], [place] [address]Dr. Amandamariana Frost Lymphocytes/100 WBC (Bld) 46.6 % Normal 20.5-60.0 [facility] Comment on above: Performed By: #### C BC ####[facility] [address] [place], [place] [address]DrOchoa Amandamariana Frost MANUAL DIFF REQ NO Normal [facility] Comment on above: Performed By: #### C BC ####[facility] [address] [place], [place] [address]DrOchoa Agnes Frost MCH (RBC) [Entitic mass] 29.1 pg Normal 26.7-34.[address] [facility] Comment on above: Performed By: #### C BC ####[facility] [address] [place], [place] [address]DrOchoa Agnes Santosh MCHC (RBC) [Mass/Vol] 31.9 g/dL Normal 29.9-35.[address] [facility] Comment on above: Performed By: #### C BC ####[facility] [address] [place], [place] [address]DrOchoa Agnes Santosh MCV (RBC) [Entitic vol] 91.4 fL Normal 81.0-99.[address] [facility] Comment on above: Performed By: #### C BC ####[facility] Dr[address] [place], [place] [address]Dr. Agnes Frost MONO # 0.8 103/ul Normal 0.3-0.[address] [facility] Comment on above: Performed By: #### C BC ####[facility] [address] [address]Dr. Agnes Frost Monocytes/100 WBC (Bld) 8.1 % Normal 1.7-12.[address] [facility] Comment on above: Performed By: #### C BC ####[facility] [address] [address]Dr. Agnes Frost NEUT # 3.7 103/ul Normal 1.4-6.[address] [facility] Comment on above: Performed By: #### C BC ####[facility] [address] [place], [place] [address]Dr. Agnes Frost Neutrophils/100 WBC (Bld) 39.9 % Critically low 43.0-75.[address] [facility] Comment on above: Performed By: #### C BC ####[facility] [address] [place], [place] [address]Dr. Agnes Frost Platelet mean volume (Bld) [Entitic vol] 9.2 fL Critically low 9.5-13.[address] [facility] Comment on above: Performed By: #### C BC ####[facility] [address] [place], [place] [address]Dr. Agnes Frost PLT 366 103/ul Normal 150-[address] [facility] Comment on above: Performed By: #### C BC ####[facility] [address] [place], [place] [address]Dr. Agnes Frost RBC 4.29 106/ul Normal 4.20-5.[address] [facility] Comment on above: Performed By: #### C BC ####[facility] [address] [place], [place] [address]Dr. Agnes Frost WBC 9.3 103/ul Normal 4.0-11.[address] [facility] Comment on above: Performed By: #### C BC ####[facility] [address] [place], [place] [address]Dr. Agnes Santosh ECHOCARDIO M/2D COMPLETEon 0 01-11-2022 ECHOCARDIO M/2D COMPLETE Patient: KETTY ROCA Exam Date: 01/11/2022 : 1970 Gender:F Ordering : DR ONEIL PANDEY . Admission #: [id number] Family : DR AMPARO MoscosoOchoa WELLER Order #: [id number] CLICK HERE TO VIEW EXAM ECHOCARDIOGRAM REPORT [...] Area(A4C): 18.90 cm2 Left Atrium Systolic Volume(A2C): 41325 mm3 Left Atrium Systolic Volume(A4C): 10309 mm3 Mitral Valve MV E to A [...] Vides M.D. on 01/11/2022 at 19:49 Normal [facility] NM STRESS/REST MULTIon 01-11 [place] STRESS/REST MULTI Patient: KETTY ROCA Exam Date: 01/11/2022 : 1970 Gender:F Ordering : DR ONEIL PANDEY . Admission #: [id number] Family : Order #: [id number] CLICK HERE TO VIEW EXAM RADIOLOGY REPORT [...] M.D. on 01/11/2022 at 15:[address] [facility] PROF 14(COMP METB)on 022 Albumin [Mass/Vol] 3.5 g/dL Normal 3.4-5.0 [facility] Comment on above: Performed By: #### B GENERAL CONTRACTOR, CMP #### [facility] [address] [place] [address] Dr. Agnes Frost Albumin/Globulin [Mass ratio] 0.9 {ratio} Normal [facility] Comment on above: Performed By: #### B GENERAL CONTRACTOR, CMP #### [facility] [address] [place] [address] Dr. Agnes Frost ALP [Catalytic activity/Vol] 100 U/L Normal 46-116 [facility] Comment on above: Performed By: #### B GENERAL CONTRACTOR, CMP #### [facility] [address] [place] [address] Dr. Agnes Frost ALT [Catalytic activity/Vol] 31 U/L Normal 14-59 [facility] Comment on above: Performed By: #### B GENERAL CONTRACTOR, CMP #### [facility] [address] [address] [address] Agnes Frost Anion gap [Moles/Vol] 10.1 mmol/L Normal [facility] Comment on above: Performed By: #### B GENERAL CONTRACTOR, CMP #### [facility] [address] [place] [address] Dr. Agnes Frost AST [Catalytic activity/Vol] 19 U/L Normal 15-37 [facility] Comment on above: Performed By: #### B GENERAL CONTRACTOR, CMP #### [facility] [address] [address] [address] Agnes Frost Bilirubin [Mass/Vol] 0.3 mg/dL Normal 0.2-1.0 [facility] Comment on above: Performed By: #### B GENERAL CONTRACTOR, CMP #### [facility] [address] [place] [address] Dr. Agnes Frost Calcium [Mass/Vol] 9.1 mg/dL Normal 8.5-10.1 [facility] Comment on above: Performed By: #### B GENERAL CONTRACTOR, CMP #### [facility] [address] [place] [address] Dr. Agnes Frost Chloride [Moles/Vol] 105 mmol/L Normal 98-107 [facility] Comment on above: Performed By: #### B GENERAL CONTRACTOR, CMP #### [facility] [address] [place] [address] Dr. Agnes Frost CO2 [Moles/Vol] 28.2 mmol/L Normal 21.0-32.0 [facility] Comment on above: Performed By: #### B GENERAL CONTRACTOR, CMP #### [facility] [address] [place] [address] Dr. Agnes Frost Creatinine [Mass/Vol] 0.76 mg/dL Normal 0.55-1.02 [facility] Comment on above: Performed By: #### B GENERAL CONTRACTOR, CMP #### [facility] [address] [place] [address] Dr. Agnes Frost EGFR-AF MALAWIAN >60 Normal >=60 [facility] Comment on above: Performed By: #### B GENERAL CONTRACTOR, CMP #### [facility] [address] [place] [address] Dr. Agnes Frost EGFR-NON AF MALAWIAN >60 Normal >=60 [facility] Comment on above: Performed By: #### B GENERAL CONTRACTOR, CMP #### [facility] [address] [place] [address] Dr. Agnes Frost Globulin (S) [Mass/Vol] 3.8 g/dL Normal [facility] Comment on above: Performed By: #### B GENERAL CONTRACTOR, CMP #### [facility] [address] [address] [address] Agnes Frost Glucose [Mass/Vol] 105 mg/dL Normal 74-106 [facility] Comment on above: Performed By: #### B GENERAL CONTRACTOR, CMP #### [facility] [address] [address] [address] Agnes Frost Potassium [Moles/Vol] 4.3 mmol/L Normal 3.5-5.1 [facility] Comment on above: Performed By: #### B GENERAL CONTRACTOR, CMP #### [facility] [address] [address] [address] Agnes Frost Protein [Mass/Vol] 7.3 g/dL Normal 6.4-8.2 [facility] Comment on above: Performed By: #### B GENERAL CONTRACTOR, CMP #### [facility] [address] [address] [address] Agnes Frost Sodium [Moles/Vol] 139 mmol/L Normal 136-145 [facility] Comment on above: Performed By: #### B GENERAL CONTRACTOR, CMP #### [facility] [address] [address] [address] Agnes Frost Urea nitrogen [Mass/Vol] 14.0 mg/dL Normal 7.0-18.0 [facility] Comment on above: Performed By: #### B GENERAL CONTRACTOR, CMP #### [facility] [address] [address] [address] Agnes Frost Urea nitrogen/Creatinin e [Mass ratio] 18.4 mg/mg Normal [facility] Comment on above: Performed By: #### B GENERAL CONTRACTOR, CMP #### [facility] [address] [address] [address] Agnes Frost TSHon 01-11-2022 TSH 2.224 uIU/mL Normal 0.358-3.740 [facility] Comment on above: Performed By: #### T SH ####[facility] [address] [address]Dr. Agnes Frost TSH RANGE SEE BELOW Normal [facility] Comment on above: Result Comment: <0.3 4 UIU/ml HYPERTHYROID 0.34-5.60 UIU/ml EUTHYROID >5.60 UIU/ml HYPOTHYROID Performed By: #### T SH ####[facility] [address] [address]Dr. Agnes Frost BNPon 01-10-2022 Natriuretic peptide B (Bld) [Mass/Vol] 17.0 pg/mL Normal <=900.0 [facility] Comment on above: Performed By: #### C MP, LIPA, BNP, HSTROPN ####[facility] [address] [address]Dr. Agnes Frost CARDIAC KORY 3-6on 2 CK [Catalytic activity/Vol] 192 U/L Normal 26-192 [facility] Comment on above: Performed By: #### C MREP ####[facility] [address] [place], [place] [address]Dr. Agnes Frost CK.MB [Mass/Vol] 2.88 ng/mL Normal <=3.60 [facility] Comment on above: Performed By: #### C MREP ####[facility] [address] [address]Dr. Agnes Frost HSTROP 4.7 pg/mL Normal 4.0-51.[address] [facility] Comment on above: Result Comment: CUT- OFF POINTS HAVE BEEN ESTABLISHED BASED ON THE FOURTH UNIVERSAL DEFINITIONS OF MYOCARDIAL INFARCTION. THE UPPER REFERENCE LIMIT (URL) OF TROPONIN, DEFINED THE 99TH PERCENTILE OF cTnI DISTRIBUTION IN A REFERENCE POPULATION, HAS BEEN CONFIRMED THE DECISION THRESHOLD FOR CO DIAGNOSIS. Performed By: #### C MREP ####[facility] [address] [address]Dr. Agnes Frost CK [Catalytic activity/Vol] 213 U/L Critically high 26-[address] [facility] Comment on above: Performed By: #### C MREP #### [facility] [address] [address] [address] Agnes Frost CK.MB [Mass/Vol] 3.29 ng/mL Normal <=3.60 [facility] Comment on above: Performed By: #### C MREP #### [facility] [address] [place] [address] Dr. Agnes Frost HSTROP 4.4 pg/mL Normal 4.0-51.[address] [facility] Comment on above: Result Comment: CUT- OFF POINTS HAVE BEEN ESTABLISHED BASED ON THE FOURTH UNIVERSAL DEFINITIONS OF MYOCARDIAL INFARCTION. THE UPPER REFERENCE LIMIT (URL) OF TROPONIN, DEFINED THE 99TH PERCENTILE OF cTnI DISTRIBUTION IN A REFERENCE POPULATION, HAS BEEN CONFIRMED THE DECISION THRESHOLD FOR CO DIAGNOSIS. Performed By: #### C MREP #### [facility] [address] [place] [address] Dr. Agnes Frost CBC AUTO DIFFon 01-10-2022 BASO # 0.1 103/ul Normal 0.0-0.1 [facility] Comment on above: Performed By: #### C BC #### [facility] [address] [place] [address] Dr. Agnes Frost Basophils/100 WBC (Bld) 0.8 % Normal 0.2-2.0 [facility] Comment on above: Performed By: #### C BC #### [facility] [address] [place] [address] Dr. Agnes Frost EO # 0.3 103/ul Normal 0.0-0.7 [facility] Comment on above: Performed By: #### C BC #### [facility] [address] [place] [address] Dr. Agnes Frost Eosinophils/100 WBC (Bld) 3.1 % Normal 0.9-7.[address] [facility] Comment on above: Performed By: #### C BC #### [facility] [address] [place] [address] Dr. Agnes Frost Erythrocyte distribution width (RBC) [Ratio] 13.9 % Normal 11.0-15.[address] [facility] Comment on above: Performed By: #### C BC #### [facility] [address] [place] [address] Dr. Agnes Frost Hematocrit (Bld) [Volume fraction] 38.8 % Normal 36.0-48.[address] [facility] Comment on above: Performed By: #### C BC #### [facility] [address] [place] [address] Dr. Agnes Frost Hemoglobin (Bld) [Mass/Vol] 12.5 g/dL Normal 12.0-16.0 [facility] Comment on above: Performed By: #### C BC #### [facility] [address] [address] [address] Agnes Frost IG # 0.03 10e3/ul Normal 0.00-0.03 [facility] Comment on above: Performed By: #### C BC #### [facility] [address] [place] [address] Dr. Agnes Frost IG % 0.3 % Normal 0.0-0.5 [facility] Comment on above: Performed By: #### C BC #### [facility] [address] [place] [address] Dr. Agnes Frost LYMPH # 4.3 103/ul Critically high 1.2-3.8 [facility] Comment on above: Performed By: #### C BC #### [facility] [address] [place] [address] Dr. Agnes Frost Lymphocytes/100 WBC (Bld) 39.5 % Normal 20.5-60.0 [facility] Comment on above: Performed By: #### C BC #### [facility] [address] [place] [address] Dr. Agens Frost MANUAL DIFF REQ NO Normal [facility] Comment on above: Performed By: #### C BC #### [facility] [address] [place] [address] Dr. Agnes Frost MCH (RBC) [Entitic mass] 29.1 pg Normal 26.7-34.[address] [facility] Comment on above: Performed By: #### C BC #### [facility] [address] [place] [address] Dr. Agnes Frost MCHC (RBC) [Mass/Vol] 32.2 g/dL Normal 29.9-35.[address] [facility] Comment on above: Performed By: #### C BC #### [facility] [address] [address] [address] Agnes Frost MCV (RBC) [Entitic vol] 90.4 fL Normal 81.0-99.0 [facility] Comment on above: Performed By: #### C BC #### [facility] [address] [address] [address] Agnes Frost MONO # 0.7 103/ul Normal 0.3-0.[address] [facility] Comment on above: Performed By: #### C BC #### [facility] [address] [address] [address] Agnes Frost Monocytes/100 WBC (Bld) 6.8 % Normal 1.7-12.0 [facility] Comment on above: Performed By: #### C BC #### [facility] [address] [place] [address] Dr. Agnes Frost NEUT # 5.3 103/ul Normal 1.4-6.5 [facility] Comment on above: Performed By: #### C BC #### [facility] [address] [place] [address] Dr. Agnes Frost Neutrophils/100 WBC (Bld) 49.5 % Normal 43.0-75.0 [facility] Comment on above: Performed By: #### C BC #### [facility] [address] [place] [address] Dr. Agnes Frost Platelet mean volume (Bld) [Entitic vol] 9.2 fL Critically low 9.5-13.[address] [facility] Comment on above: Performed By: #### C BC #### [facility] [address] [place] [address] Dr. Agnes Frost PLT 443 103/ul Normal 150-[address] [facility] Comment on above: Performed By: #### C BC #### [facility] [address] [place] [address] Dr. Agnes Frost RBC 4.29 106/ul Normal 4.20-5.[address] [facility] Comment on above: Performed By: #### C BC #### [facility] [address] [address] [address] Agnes Frost WBC 10.8 103/ul Normal 4.0-11.0 [facility] Comment on above: Performed By: #### C BC #### [facility] [address] [address] [address] Agnes Frost Covid-19 PCR (CVDTB)on SARS-CoV-2 (COVID-19) RNA PHILOMENA+probe Ql (Unsp spec) Not detected Normal NOT DETECTED [facility] Comment on above: Result Comment: When diagnostic [...] for this test is supported by the [place] of Health and Human Service's declaration that [...] longer be used). Performed By: #### C VDTB ####[facility] [id number] [address]Dr. Agnes Frost ER URINE PROFILEon 2 Bilirubin Ql (U) Negative Normal NEGATIVE [facility] Comment on above: Performed By: #### E RUR #### [facility] [address] [address] [address] Agnes Frost Clarity (U) CLEAR Normal CLEAR [facility] Comment on above: Performed By: #### E RUR #### [facility] [address] [address] [address] Agnes Frost Color (U) LT. YELLOW Normal YELLOW [facility] Comment on above: Performed By: #### E RUR #### [facility] [address] [place] [address] Dr. Agnes KATHLEEN A micrscopic examination will be performed if indicated. Normal [facility] Comment on above: Performed By: #### E RUR #### [facility] [address] [place] [address] Dr. Agnes Frost Glucose Ql (U) Negative Normal NEGATIVE [facility] Comment on above: Performed By: #### E RUR #### [facility] [address] [place] [address] Dr. Agnes Frost Hemoglobin Ql (U) Negative Normal NEGATIVE [facility] Comment on above: Performed By: #### E RUR #### [facility] [address] [place] [address] Dr. Agnes Frost Ketones Ql (U) Negative Normal NEGATIVE [facility] Comment on above: Performed By: #### E RUR #### [facility] [address] [place] [address] Dr. Agnes Frost LEUKOCYTES Negative Normal NEGATIVE [facility] Comment on above: Performed By: #### E RUR #### [facility] [address] [place] [address] Dr. Agnes Frost Nitrite Ql (U) Negative Normal NEGATIVE [facility] Comment on above: Performed By: #### E RUR #### [facility] [address] [place] [address] Dr. Agnes Frost pH (U) 5.5 [pH] Normal 5-9 [facility] Comment on above: Performed By: #### E RUR #### [facility] [address] [place] [address] Dr. Agnes Frost SPEC GRAVITY <=1.005 Abnormal 1.005-<=1.025 [facility] Comment on above: Performed By: #### E RUR #### [facility] [address] [place] [address] Dr. Agnes Frost UA PROTEIN Negative Normal NEGATIVE/ TRACE [facility] Comment on above: Performed By: #### E RUR #### [facility] [address] [place], [place] [id number] Dr. Agnes Frost UR MICRO IND NOT INDICATED Normal [facility] Comment on above: Performed By: #### E RUR #### [facility] [address] [address] [address] Agnes Frost Urobilinogen Qn (U) 0.2 {Anette'U}/dL Normal 0.2 - 1.0 [facility] Comment on above: Performed By: #### E RUR #### [facility] [address] [address] [address] Agnes Frost LIPASEon 01-10-2022 Lipase [Catalytic activity/Vol] 212.0 U/L Normal 73.0-393.0 [facility] Comment on above: Performed By: #### C MP, LIPA, BNP, HSTROPN ####[facility] [id number] [address]Dr. Agnes Frost PROF 14(COMP METB)on 022 Albumin [Mass/Vol] 3.9 g/dL Normal 3.4-5.0 [facility] Comment on above: Performed By: #### C MP, LIPA, BNP, HSTROPN #### [facility] [address] [place] [address] Dr. Agnes Frost Albumin/Globulin [Mass ratio] 1.0 {ratio} Normal [facility] Comment on above: Performed By: #### C MP, LIPA, BNP, HSTROPN #### [facility] [address] [place] [address] Dr. Agnes Frost ALP [Catalytic activity/Vol] 115 U/L Normal 46-[address] [facility] Comment on above: Performed By: #### C MP, LIPA, BNP, HSTROPN #### [facility] [address] [place] [address] Dr. Agnes Frost ALT [Catalytic activity/Vol] 32 U/L Normal 14-59 [facility] Comment on above: Performed By: #### C MP, LIPA, BNP, HSTROPN #### [facility] [address] [place] [address] Dr. Agnes Frost Anion gap [Moles/Vol] 14.4 mmol/L Normal [facility] Comment on above: Performed By: #### C MP, LIPA, BNP, HSTROPN #### [facility] [address] [place] [address] Dr. Agnes Frost AST [Catalytic activity/Vol] 21 U/L Normal 15-37 [facility] Comment on above: Performed By: #### C MP, LIPA, BNP, HSTROPN #### [facility] [address] [place] [address] Dr. Agnes Frost Bilirubin [Mass/Vol] 0.3 mg/dL Normal 0.2-1.[address] [facility] Comment on above: Performed By: #### C MP, LIPA, BNP, HSTROPN #### [facility] [address] [place] [address] Dr. Agnes Frost Calcium [Mass/Vol] 9.7 mg/dL Normal 8.5-10.1 [facility] Comment on above: Performed By: #### C MP, LIPA, BNP, HSTROPN #### [facility] [address] [place] [address] Dr. Agnes Frost Chloride [Moles/Vol] 104 mmol/L Normal 98-[address] [facility] Comment on above: Performed By: #### C MP, LIPA, BNP, HSTROPN #### [facility] [address] [place] [address] Dr. Agnes Frost CO2 [Moles/Vol] 22.8 mmol/L Normal 21.0-32.0 [facility] Comment on above: Performed By: #### C MP, LIPA, BNP, HSTROPN #### [facility] [address] [place] [address] Dr. Agnes Frost Creatinine [Mass/Vol] 0.67 mg/dL Normal 0.55-1.02 [facility] Comment on above: Performed By: #### C MP, LIPA, BNP, HSTROPN #### [facility] [address] [place] [address] Dr. Agnes Frost EGFR-AF MALAWIAN >60 Normal >=60 [facility] Comment on above: Performed By: #### C MP, LIPA, BNP, HSTROPN #### [facility] [address] [address] [address] Agnes Frost EGFR-NON AF MALAWIAN >60 Normal >=60 [facility] Comment on above: Performed By: #### C MP, LIPA, BNP, HSTROPN #### [facility] [address] [address] [address] Agnes Frost Globulin (S) [Mass/Vol] 4.0 g/dL Normal [facility] Comment on above: Performed By: #### C MP, LIPA, BNP, HSTROPN #### [facility] [address] [place] [address] Dr. Agnes Frost Glucose [Mass/Vol] 101 mg/dL Normal 74-106 [facility] [place] [facility] Comment on above: Performed By: #### C MP, LIPA, BNP, HSTROPN #### [facility] [address] [address] [address] Agnes Frost Potassium [Moles/Vol] 4.2 mmol/L Normal 3.5-5.[address] [facility] Comment on above: Performed By: #### C MP, LIPA, BNP, HSTROPN #### [facility] [address] [place] [address] Dr. Agnes Frost Protein [Mass/Vol] 7.9 g/dL Normal 6.4-8.2 [facility] [place] [facility] Comment on above: Performed By: #### C MP, LIPA, BNP, HSTROPN #### [facility] [address] [address] [address] Agnes Frost Sodium [Moles/Vol] 137 mmol/L Normal 136-145 [facility] [place] [facility] Comment on above: Performed By: #### C MP, LIPA, BNP, HSTROPN #### [facility] [address] [address] [address] Agnes Frost Urea nitrogen [Mass/Vol] 16.0 mg/dL Normal 7.0-18.0 [facility] Comment on above: Performed By: #### C MP, LIPA, BNP, HSTROPN #### [facility] [address] [place] [address] Dr. Agnes Frost Urea nitrogen/Creatinin e [Mass ratio] 23.9 mg/mg Normal [facility] Comment on above: Performed By: #### C MP, LIPA, BNP, HSTROPN #### [facility] [address] [place] [address] Dr. Agnes Frost PROTIMEon 01-10-2022 INR Coag (PPP) [Relative time] 1.01 {INR} Normal [facility] Comment on above: Performed By: #### P TT, PT #### [facility] [address] [place] [address] Dr. Agnes Frost INR GUIDELINES SEE BELOW Normal [facility] Comment on above: Result Comment: NAZANIN RED INR: 2.0 - 3.0 CONDITIONS NOT LISTED BELOW 2.5 - 3.5 FOR PROSTHETIC HEART VALVE REPLACEMENT 2.5 - 3.5 RECURRENT THROMBOSIS Performed By: #### P TT, PT #### [facility] [address] [place] [address] Dr. Agnes Frost PT Coag (PPP) [Time] 10.9 s Normal 9.0-11.[address] [facility] Comment on above: Performed By: #### P TT, PT #### [facility] [address] [place] [address] Dr. Agnes Frost PTTon 01-10-2022 aPTT Coag (Bld) [Time] 28.8 s Normal 22.3-36.[address] [facility] Comment on above: Performed By: #### P TT, PT #### [facility] [address] [place] [address] Dr. Agnes Frost TROPONIN, HIGH SENSITIVITYon 01-10-2022 HSTROP 5.8 pg/mL Normal 4.0-51.[address] [facility] Comment on above: Result Comment: CUT- OFF POINTS HAVE BEEN ESTABLISHED BASED ON THE FOURTH UNIVERSAL DEFINITIONS OF MYOCARDIAL INFARCTION. THE UPPER REFERENCE LIMIT (URL) OF TROPONIN, DEFINED THE 99TH PERCENTILE OF cTnI DISTRIBUTION IN A REFERENCE POPULATION, HAS BEEN CONFIRMED THE DECISION THRESHOLD FOR CO DIAGNOSIS. Performed By: #### C MP, LIPA, BNP, HSTROPN ####[facility] [id number] [place], [place] [address]ReOchoa Frost XR CHEST 1 Von 01-10-2022 XR [...] by: AMINA LEE Date: 2022-01-10 15:00 Normal [facility] PROGRESSon 06-21-2017 PROGRESS HNO ID: [id number]: Katie Dacostaice: (none)Author Type: PhysicianType: Progress NotesFiled: [...] kg (202 lb 6.4 oz) BMI 32.18 kg/z9GZBRO: Normocephalic, atraumatic, mucus membranes moist and no [...] office note were sent to:Antony Zaldivar MD[address] [facility] [phone]:Nik Weller MD (PCP) Normal [facility] CNOVon 06-18-2017 CNOV Office Visit (GYNOSA) RAHAT KETTY NOEL ([id number]) 1970 FDate Time Provider [id number]/7/17 2:40 PM KATIE PINTO During your visit [...] kg (202 lb 6.4 oz) BMI 32.18 kg/n4VLXDX: Normocephalic, atraumatic, mucus membranes moist and no [...] Zaldivar in the future. I am available ifneedAlvaro Pinto MD, MPH15 min spent with the patient with ANDgt;50% face to face counselingA letter and a copy of this office note were sent to:Antony Zaldivar MD[address] [facility] [phone]:Nik Weller MD (PCP)Referring Provider: KATIE PINTO [[id number]]Allergies As of Date: 06/18/2017(No Known Allergies)Date Reviewed: 06/18/2017Reviewed by: Joana Bah AssessedReason for Visit: Vulvar dysplasia [Other] Cmt: [...] by KATIE PINTO MD on 06/21/17 Normal [facility] Vital Signs Date Time Vital Sign Value Performing Clinician Faci lity 02-11-2024 09:46-0400 Body height 172.7 cm Dustin Koch MD Work Phone: [facility] 02-11-2024 09:46-0400 Body mass index (BMI) [Ratio] 31.08 kg/m2 Dustin Koch MD Work Phone: [facility] 02-11-2024 09:46-0400 Body weight 92.72 kg Dustin Koch MD Work Phone: [facility] 02-11-2024 09:46-0400 Diastolic blood pressure 88 mm[Hg] Dustin Koch MD Work Phone: [facility] 02-11-2024 09:46-0400 Heart rate 84 /min Dustin Koch MD Work Phone: [facility] 02-11-2024 09:46-0400 SaO2% (BldA) [Mass fraction] 97 % Dustin Koch MD Work Phone: [facility] 02-11-2024 09:46-0400 Systolic blood pressure 148 mm[Hg] Dustin Koch MD Work Phone: [facility] 04-19-2019 11:38-0400 BP Diastolic 85 mm[Hg] [facility] [place] 04-19-2019 11:38-0400 BP Systolic 131 mm[Hg] [facility] [place] 04-19-2019 11:38-0400 Pulse (Heart Rate) 79 /min Chana Lujan [facility], [place] 04-19-2019 11:38-0400 Pulse Oximetry 99 % Chana Escamilla [facility], [place] 04-19-2019 11:38-0400 Respiratory Rate 14 /min Chana Escamilla [facility], [place] 04-19-2019 10:21-0400 BMI (Body Mass Index) 31.32 kg/m2 Chana Polo [facility], [place] 04-19-2019 10:21-0400 Body Temperature 97.81 [degF] Chana Escamilla [facility], [place] 04-19-2019 10:21-0400 Body weight 93.44 [facility] [place] 04-19-2019 10:21-0400 Height 172.7 cm [facility] [place] Encounters Encounter Date Encounter Type Care Provider Facility Start: 09-14-2024 End: 09-14-2024 Refill Roxann Major LPN [facility] Comment on above: Med Refill Start: 02-11-2024 End: 02-11-2024 Office outpatient visit 25 minutes Dustin Koch MD [facility] Comment on above: Microvascular angina ([facility]) (Primary Dx) Start: 02-11-2024 End: 02-11-2024 ambulatory DUSTIN KOCH [facility] Start: 02-10-2024 End: 02-10-2024 Telephone encounter Dalia Perry CMA [facility] Start: 12-27-2023 End: 12-27-2023 Documentation procedure Devon Greenberg MD Work Phone: [facility] Start: 12-02-2022 End: 12-02-[address] DOCTOR KIDD Facility:[facility] Start: 01-10-2022 End: 01-11-[address] DOCTOR KIDD Facility:[facility] Start: 04-19-2019 End: 04-19-2019 [facility] Start: 04-19-2019 End: 04-19-2019 Emergency department patient visit [facility] ED Comment on above: Right arm pain (Prim garry Dx); Contusion of right elbow, initial encounter; Ulnar neuropathy at elbow of right upper extremity Start: 06-18-2017 End: 06-24-2017 Ambulatory [facility] Procedures Date Procedure Procedure Detail Performing Clinician Start: 02-11-2024 Follow-up visit Follow-up DUSTIN KOCH Start: 04-19-2019 ED NURSING COMMUNICATION CHANA PORTILLO Start: 04-18-2018 H/O: surgery S/P nasal septoplasty Devon Greenberg MD Work Phone: Plan of Treatment Date Care Activity Detail Author Start: 02-10-2025 Adult BMI Screening Adult BMI Screen ing [facility] Start: 02-10-2025 Tobacco Screening Tobacco Screening [facility] Start: 10-30-2024 End: 10-30-2024 Patient encounter procedure 10/30/2024 2:30 PM EDT Office Visit [facility] [address] [place] [address] Dustin Koch MD [facility] [place], [place] [id number] [facility] Start: 07-02-2024 Adult BMI Screening Adult BMI Screen ing [facility] Start: 07-02-2024 Tobacco Screening Tobacco Screening [facility] Start: 04-12-2024 Influenza vaccination Influenza Vacc ine [facility] Start: 02-11-2024 End: 02-11-2024 Patient encounter procedure 02/11/2024 10:15 AM EDT Office Visit [facility] [address] [place] [address] Dustin Koch MD [address] [place] [address] [facility] Start: 04-12-2019 Influenza vaccination Flu vaccine (# 1) [place], [place] Start: 2018 Administration of varicella zoster vaccine Zoster (Shingles) Vaccine (1 of 2) [facility] [employer] Start: 2018 Breast cancer screen Breast cancer s tonya [place], [place] Start: 1987 DTaP,Tdap and Td Vaccines (1 - Tdap) DTaP,Tdap and Td Vaccines (1 - Tdap) [facility] Start: 1986 Adult BMI Follow Up Plan Adult BMI F ollow Up Plan [facility] [employer] [facility] Start: 1980 Depression Screening [facility] Start: 1968 Tobacco Counseling Tobacco Counselin g [facility] [employer] End: 09-14-2025 Lipid 1996 panel - Serum or Plasma Lipid profile Lab Routine Mixed hyperlipidemia Chest pain, unspecified type 1 Occurrences starting 09/14/2024 until 09/14/2025 [facility] Work Phone: Comment on above: 1 Occurrences starti ng 09/14/2024 until 09/14/2025 Payers Date Payer Category [place]ayer [place] [id number] 2022-Present [phone] [address] [place] [address] [id number] 2012 Medicare MEDICARE MEDICAR E PART A AND B xxxxxxxxxxx 2012-Present [phone] [address] [address] [place] [address] xxxxxxxxxxx [id number] 2012 Medicare [id number] 2005 Unknown [id number] 2005 Unknown GENERIC MCO GENE NEDRA MCO WC xxxxxxxx 2005-Present [address] [place] [address] xxxxxxxx [id number] 1968 Unknown [id number] 1968 Unknown [id number] 1968 Unknown [id number] 1968 Unknown [id number] 1959 Medicaid [id number] 1961 Medicare [id number] Social History Date Type Detail Facility Start: 04-19-2019 End: 02-11-2024 Tobacco smoking status NHIS Current every day smoker [facility] History of tobacco use Cigarette Smoker [place], [place] Start: 04-19-2019 End: 09-22-2020 Cigarettes smoked current (pack per day) - Reported [place], [place] Start: 1970 Sex Assigned At Not on file [place], [place] Start: 03-29-2023 End: 02-11-2024 Tobacco use and exposure Smokeless tobacco non-user [facility] Start: 07-02-2023 End: 02-11-2024 Alcoholic beverage intake Current drinker of alcohol (finding) [facility] Start: 09-22-2020 End: 02-11-2024 Tobacco use panel [facility] Childcare Unknown [facility] Start: 01-22-2018 Alcohol Comment social [facility] Start: 03-17-2015 Sex Female (finding) [facility] History of Present illness Narrative 02-11-2024 Dustin Koch MD - 02/11/2024 10:15 AM EDT Note Date & Type Note Facility 02-11-2024 History of Present illness Narrative Ketty Priscilaarie Roca Date of visit: 02/11/2024 Date of : 1970 Age: 53 y.o. Patient Active Problem List Diagnosis Apnea Deviated septum Fatigue S/P nasal septoplasty Sinusitis Microvascular angina (CMS-HCC) Mixed hyperlipidemia Allergies Allergen Reactions Bee Sting [Bee Venom Protein (Honey Bee)] Current Outpatient Medications Medication Sig Dispense Refill acetaminophen (TYLENOL ARTHRITIS) 650 mg 8 hr tablet Take 1 tablet (650 mg total) by mouth in the morning. BIOTIN ORAL Take 10,000 mg by mouth in the morning. busPIRone (BUSPAR) 7.5 mg tablet Take 1 tablet (7.5 mg total) by mouth in the morning and at bedtime. cinnamon bark (CINNAMON ORAL) Take 2,000 mg by mouth in the morning. FLUoxetine (PROzac) 20 MG tablet 40 mg in am and 20 mg pm ibuprofen/diphenhydramine cit (IBUPROFEN PM ORAL) Take by mouth nightly. multivit with minerals/lutein (MULTIVITAMIN 50 PLUS ORAL) Take by mouth daily. nitroglycerin (NITROSTAT) 0.[address] 1 tablet (0.4 mg total) under the tongue every 5 (five) minutes as needed for chest pain. rosuvastatin (CRESTOR) 20 mg tablet Take 1 tablet (20 mg total) by mouth in the morning. 90 tablet 5 ubidecarenone/vitamin E mixed (COQ10 SG 100 ORAL) Take 200 mg by mouth in the morning. VENTOLIN HFA 90 mcg/actuation inhaler INHALE 2 PUFFS BY MOUTH EVERY 6 HOURS NEEDED FOR WHEEZING 18 Inhaler 0 aspirin 81 mg Take 1 tablet (81 mg total) by mouth in the morning. black cohosh 540 mg capsule Take by mouth daily. (Patient not taking: Reported on 02/11/2024) isosorbide mononitrate (IMDUR) 30 mg 24 hr tablet Take 1 tablet (30 mg total) by mouth daily. 90 tablet 3 No current facility-administered medications for this visit. Chief Complaint Patient presents with Follow-up EST PT F/U IN [facility] SCHED W/ PT History of Present Illness 53yo here for f/u Angina is typical Emotional or mundane activities trigger it She had calcium score 15 No conssitent exertional symptoms to suggest a missed coronary lesion She did not have EKG changes on TM exercise despite cp Still having the pain episodes She has depression and smokes Past Medical History: Diagnosis Date Bronchitis Bronchitis Cancer ([facility]) vulva cancer Chest pain Depression Deviated septum Epicondylitis elbow, medial, right Fatigue Migraine Shortness of breath Sleep apnea cpap Ulnar neuropathy Visual impairment glasses No data recorded No data recorded No data recorded Past Surgical History: Procedure Laterality Date ANKLE SURGERY Right CLOSED REDUCTION UPPER EXTREMITY 4 arm surgeries, right HYSTERECTOMY RESECTION SUBMUCOSAL Bilateral 04/10/2018 Performed by Carson Holman MD at [facility] SEPTOPLASTY N/A 04/10/2018 Performed by Carson Holman MD at [facility] Family History Problem Relation Age of Onset Hypertension Mother Hyperlipidemia Mother Diabetes Mother No Known Problems Father Social History Socioeconomic History Marital status: Spouse name: Not on file Number of children: Not on file Years of education: Not on file Highest education level: Not on file Occupational History Not on file Tobacco Use Smoking status: Every Day Current packs/day: 0.25 Types: Cigarettes Smokeless tobacco: Never Vaping Use Vaping status: Never Used Substance and Sexual Activity Alcohol use: Yes Comment: social Drug use: No Sexual activity: Never Other Topics Concern Coffee Not Asked Tea Not Asked Carbonated Beverages Not Asked Chocolate Not Asked Caffeine Use Yes Social History Narrative Not on file Social Determinants of Health Financial Resource Strain: Not on file Food Insecurity: No Food Insecurity (02/11/2024) Hunger Screening Food Insecurity - Worry: Never True Food Insecurity - Inability: Never True Transportation Needs: Not on file Physical Activity: Not on file Stress: Not on file Social Connections: Not on file Interpersonal Safety: Unknown (10/03/2023) Received from [facility] Environment Fear of Current or Ex-Partner: Not on file Emotionally Abused: Not on file Physically Abused: Not on file Sexually Abused: Not on file Physically or Sexually Abused: Not on file Housing Instability: Not on file Review of Systems Review of Systems Constitutional: Positive for malaise/fatigue. HENT: Negative. Eyes: Negative. Cardiovascular: Positive for chest pain. Respiratory: Negative. Endocrine: Negative. Hematologic/Lymphatic: Bruises/bleeds easily. Skin: Negative. Musculoskeletal: Positive for back pain. Gastrointestinal: Negative. Genitourinary: Negative. Neurological: Positive for dizziness, headaches, light-headedness, loss of balance and numbness. Psychiatric/Behavioral: Positive for depression. Allergic/Immunologic: Negative. Vascular: Negative. CARDIOVASCULAR: Please review HPI. Physical Examination General appearance: Alert, oriented and cooperative. In no acute distress. Skin: Warm and dry to touch. Head: Normocephalic, without obvious abnormality, atraumatic. Ears, Nose, Mouth, Throat: Throat clear without erythema or exudate. Dentition intact. Eyes: Conjunctivae unremarkable, EOM intact. Neck: No JVD, No carotid bruit. Neck supple, trachea midline. Respiratory: Clear to auscultation bilaterally, no use of accessory muscles. Cardiovascular: RRR with normal S1 and S2 with no murmurs. Gastrointestinal: Soft, non-tender. Bowel sounds normal. Musculoskeletal: No peripheral edema. Neurologic: Oriented to time, person and place, affect appropriate. No focal/major motor defects noted. Psychiatric: Appropriate mood, memory and judgement. VITAL SIGNS: BP 148/88 (BP Site: Left Arm, BP Postition: Sitting) Pulse 84 Ht 172.7 cm (5' 8 ) Wt 92.7 kg (204 lb 6.4 oz) SpO2 97% BMI 31.08 kg/m Orders Placed or Reconciled This Encounter Medications busPIRone (BUSPAR) 7.5 mg tablet Sig: Take 1 tablet (7.5 mg total) by mouth in the morning and at bedtime. isosorbide mononitrate (IMDUR) 30 mg 24 hr tablet Sig: Take 1 tablet (30 mg total) by mouth daily. Dispense: 90 tablet Refill: 3 aspirin 81 mg Sig: Take 1 tablet (81 mg total) by mouth in the morning. Medications Discontinued During This Encounter Medication Reason aspirin 325 mg tablet Dose adjustment IMPRESSIONS/PLAN 1. Microvascular angina (CMS-HCC) Impression Possible microvascular angina, no ischemic EKG changes despite cp on treadmill. CTA 03/2023 without obstructive lesions and calcium score 15. She takes NTG with relief of pain. Still bothering her to say the least. Echo with mild LVH but no other structural issues. Quit tobacco Start imdur Update in 1 week, if still having issues but improved then increase imdur. If no response to imdur, try [facility]B TODAYS ORDERS No orders of the defined types were placed in this encounter. FOLLOW UP Return in about 6 months (around 08/13/2024). PCP: Lin Weller MD Referring Physician: Lin Weller MD [address] [place] [address] documented in this encounter [facility] Instructions 02-11-2024 Patient Instructions Note Date & Type Note Facility 02-11-2024 Instructions Rose Lang CMA - 02/11/2024 10:15 AM EDT Are You Ready To Kick The Habit? Free Tobacco Cessation Resources [facility] Services [facility] provide all employees with free tobacco cessation services that include: Counseling to understand nicotine addiction Education about medications that can help you successfully quit Assistance with developing a plan to quit Call to set up an individual appointment or find out when group classes will be held: [facility]: [phone] [facility]: [phone] [facility]: [phone] [facility]: [phone] Quit Smoking Action Plan and Resources [facility] offers an eight-week, online smoking cessation plan to all [facility] employees, regardless of whether [employer] is your medical insurance provider. Go to [email or web address] and click the Health Risk Assessment and Resources link to get started. In the [employer] menu, click Action Plans instead of Health Risk Assessment to access the Quit Smoking Action Plan. Additional smoking cessation resources are also available to all [facility] employees on the [employer] web page at [email or web address] antonioi [email or web address]. [employer] Tobacco Cessation Program If [employer] is your medical insurance provider, there are more free resources available to you, including: No copays or deductibles on local tobacco cessation counseling services to help you quit Prescription assistance for tobacco cessation medications to help you quit For details about the tobacco cessation program available to [employer] members, go to www.[employer] (Search: Tobacco Cessation Program). [place] Tobacco Quit Line 8-944-SZKO-NOW ( ) is a toll-free, telephonic service that helps [place] residents quit smoking and using tobacco. It is staffed by experts who tailor a quit plan for you and provide you with advice. [place] Tobacco Quit Line 7-534-KKCR-NOW ( ) is a toll-free, telephonic service that helps [place] residents quit smoking and using tobacco. It is staffed by experts who tailor a quit plan for you and provide you with advice. Two weeks of nicotine replacement therapy may be provided at no charge, if needed. Additional Resources These national organizations also offer free information and resources to help you quit tobacco: [place] [employer]--www.cancer.org/healthy/staya wayfromtobacco [place] [employer]--www.heart.org (Search: Quit Smoking) Centers for Disease Control and Prevention--www.cdc.gov/tobacco [place] [employer]--www.lungusa.org documented in this encounter [facility] Note 02-10-2024 Telephone Encounter - Dalia Perry CMA - 02/10/2024 9:30 AM EDT Note Date & Type Note Facility 02-10-2024 Miscellaneous Notes Formattin g of this note might be different from the original. Called patient to remind them to bring their most current copy of their medication list with them to their appt. Patient verbalizes understanding. documented in this encounter [facility] Telephone encounter Note 02-10-2024 Telephone Encounter - Dalia Perry CMA - 02/10/2024 9:30 AM EDT Note Date & Type Note Facility 02-10-2024 Telephone encount er Note Called patient to remind them to bring their most current copy of their medication list with them to their appt. Patient verbalizes understanding. [facility] History of Present illness Narrative 12-27-2023 Devon Greenberg MD - 12/27/2023 2:18 PM EDT Note Date & Type Note Facility 12-27-2023 History of Presen t illness Narrative error documented in this encounter [facility] Evaluation note Note Date & Type Note Facility Evaluation note Diagnosis Mixed hyperlipidemia Chest pain, unspecified type Tobacco abuse Tobacco use disorder documented in this encounter [facility] Evaluation note Note Date & Type Note Facility Evaluation note Diagnosis Microvascular angina (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 * Contusion (Romansh) documented in this encounter Assessments Diagnosis Right arm pain- Primary Pain in limb Contusion of right elbow, initial encounter Ulnar neuropathy at elbow of right upper extremity Additional Source Comments INFORMATION SOURCE (unrecogn ized section and content) DATE CREATED AUTHOR 02/04/2018 [facility] DATE CREATED AUTHOR AUTHOR'S ORGANIZ ATION 04/19/2019 [facility] DATE CREATED AUTHOR AUTHOR'S ORGANIZ ATION 12/05/2022 [facility] DATE CREATED AUTHOR AUTHOR'S ORGANIZ ATION 02/12/2024 [facility] Reason for Visit (unrecogniz ed section and content) Reason Comments Arm Pain Right elbow, chronic . 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 [facility]. provides no warranty or guarantee of the accuracy or completeness of information in this document.
[2024-09-30 12:52] LABS: Basophils Absolute Auto 0.1 10^3/uL (0.0-0.1); Basophils Percent Auto 0.9 % (0.2-2.0); Eosinophils Absolute Auto 0.2 10^3/uL (0.0-0.7); Eosinophils Percent Auto 2.6 % (0.9-7.0); Hematocrit 36.8 % (36.0-48.0); Hemoglobin 12.2 g/dL (12.0-16.0); Immature Granulocytes Abs Auto 0.02 10^3/uL (0.00-0.03); Immature Granulocytes Pct Auto 0.2 % (0.0-0.5); Lymphocytes Absolute Auto 4.4 10^3/uL (1.2-3.8); Lymphocytes Percent Auto 48.4 % (20.5-60.0); Mean Corpuscular HGB Conc 33.2 g/dL (29.9-35.2); Mean Corpuscular Hemoglobin 30.6 pg (26.7-34.0); Mean Corpuscular Volume 92.2 fL (81.0-99.0); Mean Platelet Volume 9.2 fL (9.5-13.5); Monocytes Absolute Auto 0.6 10^3/uL (0.3-0.8); Neutrophils Absolute Auto 3.8 10^3/uL (1.4-6.5); Neutrophils Percent Auto 41.9 % (43.0-75.0); Platelet Count 371 10^3/uL (150-450); Red Blood Count 3.99 10^6/uL (4.20-5.40); Red Cell Distribution Width 13.1 % (11.0-15.0); White Blood Count 9.1 10^3/uL (4.0-11.0)
[2024-09-30 13:01] LABS: INR 1.05; Partial Thromboplastin Time 27.2 sec (22.3-36.2); Prothrombin Time 11.1 sec (9.0-11.6)
[2024-09-30 13:07] LABS: Anion Gap 16.9; BUN Creatinine Ratio 27.2; Calcium 9.1 mg/dL (8.5-10.1); Carbon Dioxide 25.5 mmol/L (21.0-32.0); Chloride 104 mmol/L (98-107); Estimated GFR (African America >60 (>=60 mL/min/1.73m^2); Estimated GFR (Non-African Ame >60 (>=60 mL/min/1.73m^2); Glucose 107 mg/dL (74-106); Potassium 4.4 mmol/L (3.5-5.1); Sodium 142 mmol/L (136-145); Troponin I High Sensitivity <4.0 pg/mL (4.0-51.3)
[2024-09-30] MEDS: IBUPROFEN 600 MG TABLET PO (13:14)
--- NOTE | 2024-09-30 13:34 | ED_ITS ---
HPI - Chest Pain General Chief Complaint: Chest Pain Stated Complaint: CHEST PAINS SOB Time Seen by Provider: 09/30/24 12:42 Source: patient Mode of arrival: walk-in Limitations: no limitations History of Present Illness HPI narrative: 54-year-old female to the emergency department chief complaint of chest pain. Patient reports she has had chest pain several times a week for the last 5 years. She follows with a Dr. Koch, cardiology, in [place] for this. She reports that she had a negative stress test recently. She has had a normal echocardiogram. She has had multiple workups for this which are negative. Pain today was sharp and pressure-like. Substernal. Related Data Home Medications ?Medication ?Instructions ?Recorded ?Confirmed fluoxetine 20 mg capsule 40 mg PO QAM 03/18/23 09/30/24 nitroglycerin 0.4 mg sublingual 0.4 mg sublingual Q5M PRN chest 03/18/23 09/30/24 tablet pain rosuvastatin 20 mg tablet 20 mg PO DAILY 03/18/23 09/30/24 buspirone 15 mg tablet 7.5 mg PO BID 12/27/23 09/30/24 acetaminophen 650 mg 650 mg PO DAILY 06/02/24 06/02/24 tablet,extended release (Arthritis Pain Reliever) aspirin 325 mg tablet 325 mg PO QAM 06/02/24 06/02/24 aspirin 81 mg tablet,delayed 81 mg PO QPM 06/02/24 09/30/24 release (Adult Low Dose Aspirin) coenzyme Q10 100 mg capsule 200 mg PO DAILY 06/02/24 09/30/24 (CoQ-10) fluoxetine 20 mg capsule 20 mg PO QPM 06/02/24 09/30/24 ibuprofen 200 mg capsule 400 mg PO QPM 06/02/24 06/02/24 isosorbide mononitrate 30 mg 30 mg PO DAILY 06/02/24 09/30/24 tablet,extended release 24 hr Allergies Allergy/AdvReac Type Severity Reaction Status Date / Time No Known Drug Allergies Allergy Verified 09/30/24 12:26 Review of Systems ROS Status of ROS 10 or more systems reviewed and unremark able except as noted in history and below PFSH PFSH Social History Little interest or pleasure in doing things: not at all Feeling down, depressed, or hopeless: not at all Exam Narrative Exam Narrative: VITALS: I have reviewed the triage vital signs. GENERAL: Well developed, well appearing adult in no acute distress. NEURO: Alert and oriented. Moves all extremities. Face is symmetric and expressive. EYES: PERRL. No scleral icterus or conjunctival injection. No discharge. HENT: Normocephalic, atraumatic. Hearing is grossly intact. Nares grossly patent and without discharge. Mucous membranes moist. NECK: No JVD. Patient moves neck without restriction. CARDIO: Rhythm regular. Normal rate. No murmur, rub, or gallop. Pulses equal bilaterally in the upper and lower extremity. No lower extremity edema. PULM: Lungs clear to auscultation in all [place]. No wheezes, rales, or rhonchi. No conversational dyspnea. No splinting, stridor, or accessory muscle use. GI/: Abdomen is soft and non-tender. Normoactive bowel sounds. EXTREMITIES: Symmetric muscle bulk. No joint swelling. No clubbing, cyanosis, or deformity. SKIN: Warm and dry. Normal turgor. No rash or lesions appreciated. PSYCH: Mood, affect, and interaction is appropriate to the setting. Constitutional Vital Signs, click to edit/add: Last Vital Signs Temp 98.8 F 09/30/24 12:27 Pulse 78 09/30/24 12:27 Resp 20 09/30/24 12:27 BP 140/68 09/30/24 12:27 Pulse Ox 100 09/30/24 12:27 O2 Del Method Room Air 09/30/24 12:27 Course Vital Signs Vital signs: Vital Signs Temperature 98.8 F 09/30/24 12:27 Pulse Rate 78 09/30/24 12:27 Respiratory Rate 20 09/30/24 12:27 Blood Pressure 140/68 09/30/24 12:27 Pulse Oximetry 100 09/30/24 12:27 Oxygen Delivery Method Room Air 09/30/24 12:27 Temperature 98.8 F 09/30/24 12:27 Pulse Rate 78 09/30/24 12:27 Respiratory Rate 20 09/30/24 12:27 Blood Pressure 140/68 09/30/24 12:27 Pulse Oximetry 100 09/30/24 12:27 Oxygen Delivery Method Room Air 09/30/24 12:27 MDM - Chest Pain MDM Narrative Medical decision making narrative: 54-year-old female to the emergency department chief complaint of chest pain. Vital stable, the patient is afebrile. Cardiac workup is initiated. EKG: Normal sinus rhythm at a rate of 75. No STEMI. Normal QTc at 424 Chest x-ray without any acute cardiopulmonary process per radiology read. Heart score is low risk. Her troponin is very low on the initial. Will repeat at 1 hour. Lab work otherwise unremarkable. Repeat troponin is also very low. 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 Patient agrees with this plan. Return precautions were discussed. All questions were answered. The patient was discharged home. Heart Score for Major Cardiac Event History: Example factors for history - pattern of chest pain, onset, duration, relation with exercise, stress or cold, localization, concomitant symptoms. reaction to sublingual nitrates, [] Highly suspicious +2 [] Moderately suspicious +1 [x] Slightly suspicious 0 EKG: [] Significant ST-Depression +2 [] Non specific repolarization disturbance +1 [x] Normal 0 Age: [] >= 65 +2 [x] 45-65 + 1 [] <45 0 Risk Factors: (HLD, HTN, DM, Cigarette Smoking, Pos Family Hx, Obesity) [x] >3 risk factors or hx of atherosclerotic disease + 2 [] 1-2 risk factors + 1 [] No risk factors known 0 Troponin: [] >= 3X normal + 2 [] 1-3X normal + 1 [x] <= Normal 0 [x] 0-3 Points 0.9 - 1.7% risk of major adverse cardiac event in 6 weeks [] 4-6 Points 12-16.6% risk of major adverse cardiac event in 6 weeks [] 7-10 Points 50-65% risk of major adverse cardiac event in 6 weeks [x] 0-3 Points with 2 sets of negative cardiac markers <1% risk of major adverse cardiac event in 30 days. Medical Records Data Attestation: I reviewed the patient's medical records. Lab Data Attestation: I reviewed the patient's lab results. Labs: Lab Results 09/30/24 09/30/24 Range/Units 12:35 13:31 WBC 9.1 (4.0-11.0) 10^3/uL RBC 3.99 L (4.20-5.40) 10^6/uL Hgb 12.2 (12.0-16.0) g/dL Hct 36.8 (36.0-48.0) % MCV 92.2 (81.0-99.0) fL MCH 30.6 (26.7-34.0) pg MCHC 33.2 (29.9-35.2) g/dL RDW 13.1 (11.0-15.0) % Plt Count 371 (150-450) 10^3/uL MPV 9.2 L (9.5-13.5) fL Neut % (Auto) 41.9 L (43.0-75.0) % Lymph % (Auto) 48.4 (20.5-60.0) % Glades % (Auto) 6.0 (1.7-12.0) % Eos % (Auto) 2.6 (0.9-7.0) % Baso % (Auto) 0.9 (0.2-2.0) % Neut # (Auto) 3.8 (1.4-6.5) 10^3/uL Lymph # (Auto) 4.4 H (1.2-3.8) 10^3/uL Glades # (Auto) 0.6 (0.3-0.8) 10^3/uL Eos # (Auto) 0.2 (0.0-0.7) 10^3/uL Baso # (Auto) 0.1 (0.0-0.1) 10^3/uL Abs Immat Gran (auto) 0.02 (0.00-0.03) 10^3/uL Imm/Tot Granulo (auto) 0.2 (0.0-0.5) % PT 11.1 (9.0-11.6) sec INR 1.05 APTT 27.2 (22.3-36.2) sec Sodium 142 (136-145) mmol/L Potassium 4.4 (3.5-5.1) mmol/L Chloride 104 (98-107) mmol/L Carbon Dioxide 25.5 (21.0-32.0) mmol/L Anion Gap 16.9 BUN 22.0 H (7.0-18.0) mg/dL Creatinine 0.81 (0.55-1.02) mg/dL Est GFR ( Amer) >60 (>=60 mL/min/1.73m^2) Est GFR (Non-Af Amer) >60 (>=60 mL/min/1.73m^2) BUN/Creatinine Ratio 27.2 Glucose 107 H (74-106) mg/dL Calcium 9.1 (8.5-10.1) mg/dL Troponin I High Sens <4.0 L <4.0 L (4.0-51.3) pg/mL Imaging Data Chest x-ray: Attestation: I have reviewed the pertinent imaging results. Discharge Plan Discharge Chief Complaint: Chest Pain Clinical Impression: Atypical chest pain Patient Disposition: Home, Self-Care Mode of Transportation: Private Vehicle Prescriptions / Home Meds: No Action fluoxetine 20 mg capsule 40 mg PO QAM rosuvastatin 20 mg tablet 20 mg PO DAILY nitroglycerin 0.4 mg tablet, sublingual 0.4 mg sublingual Q5M PRN (Reason: chest pain) buspirone 15 mg tablet 7.5 mg PO BID isosorbide mononitrate 30 mg tablet extended release 24 hr 30 mg PO DAILY aspirin 325 mg tablet 325 mg PO QAM coenzyme Q10 [CoQ-10] 100 mg capsule 200 mg PO DAILY acetaminophen [Arthritis Pain Reliever] 650 mg tablet extended release 650 mg PO DAILY aspirin [Adult Low Dose Aspirin] 81 mg tablet,delayed release (DR/EC) 81 mg PO QPM fluoxetine 20 mg capsule 20 mg PO QPM ibuprofen 200 mg capsule 400 mg PO QPM Print Language: Kinyarwanda Instructions: Chest Pain (ED) Additional Instructions: Call the office of your primary care doctor to arrange for follow-up within the above-stated timeframe. Your ED visit was focused on your acute issue and does not replace primary care. You should review your labs, imaging, and diagnoses from this ED visit with your primary care physician. There may be non-emergent/ incidental findings that need further evaluation. You should review your vital signs including blood pressure with your PCP. If you were prescribed medications you should discuss possible side-effects and drug interactions with your pharmacist. Call 911 or go to the nearest Emergency Department if you develop any new or worsening symptoms. Seek immediate medical attention if you develop: worsening chest pain, new chest pain, nausea, vomiting, weakness, numbness, tingling, excessive sweating, shortness of breath, difficulty breathing, loss of motion in your arms or legs, or any new or worsening symptoms. Referrals: Chaka Gallardo MD [Primary Care Provider] - 1 week
[2024-09-30 13:53] LABS: Troponin I High Sensitivity <4.0 pg/mL (4.0-51.3)
== END 2024-09-30 14:20 | disposition home or self-care (01) ==
PROVIDERS: Emergency Provider Student in an Organized Health Care Education/Training Program; PCP Family Medicine
DX: R07.89 Other chest pain (principal)
CPT/HCPCS: 36415; 71045; 80048; 84484; 85025; 85610; 85730; 93005; 99285

== ENCOUNTER 2024-10-26 16:29 | Outpatient (OUT) | payer MEDICARE, SELFPAY ==
--- OUTSIDE RECORDS SUMMARY | 2024-10-26 16:38 | XMS_ITS | CCD ---
Author Organization [facility] Care Team Providers Care Machine Specialist Name Role Phone MAHDI, KATIE Unavailable Unavailable MAHCORONA, KATIE Unavailable Unavailable CHANA POLO Attending Unavailab LIN Diaz Primary Care Unavailable Lin Weller Primary Care Provider [facility] [place]ARTINE[place] Primary Care Unavailable SHANTA ., [...] Unavailable Lin Weller MD Primary Care Provider [phone] Allergies Allergy Classification Reported Allergen(s) Allergy Type Date of Onset Reaction(s) Facility (1 source) bee venom Drug allergy (disorder) 5 [facility] Repository (5 sources) BEE VENOM PROTEIN (HONEY [...] days. 10 tablet 0 04/19/2019 04/22/2019 Active [id number] 200 actuat albuterol 0.09 mg/actuat metered dose [...] Discontinued (Dose adjustment) Biotin (4 sources) take [address]671 mg by dorene th in the morning [...] Onset: 12-04-2021 Episodic Other aftercare (1 source) [facility] (current) use of aspirin; 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: [[facility] CURRENT USE OF ASPIRIN] Onset: 12-04-2022 Episodic Other aftercare (1 source) Other hearing care professional (current) drug therapy; 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: [OTH HEALTH CARE COACH CURRENT DRUG THERAPY] Onset: 12-04-2022 Episodic Other [...] T4 [Mass/Vol] 5.4 ug/dL Normal 4.5-12.0 [facility] Comment on above: Performed By: #### T 4LC ####[facility] [address] [address]Dr. Agnes Frost BNPon 01-11-2022 Natriuretic peptide B (Bld) [Mass/Vol] 17.0 pg/mL Normal <=900.0 [facility] Comment on above: Performed By: #### B FARM PRODUCTS SHIPPER, CMP #### [facility] [address] [address] [address] Agnes Frost CBC AUTO DIFFon 01-11-2022 BASO # 0.1 103/ul Normal 0.0-0.1 [facility] Comment on above: Performed By: #### C BC ####[facility] [address] [address] [address]DrOchoa Frost Basophils/100 WBC (Bld) 1.0 % Normal 0.2-2.0 [facility] Comment on above: Performed By: #### C BC ####[facility] [address] [address]Dr. Agnes Frost EO # 0.4 103/ul Normal 0.0-0.7 [facility] Comment on above: Performed By: #### C BC ####[facility] [address] [place], [place] [address]DrOchoa Frost Eosinophils/100 WBC (Bld) 4.2 % Normal 0.9-7.0 [facility] Comment on above: Performed By: #### C BC ####[facility] [address] [place], [place] [address]DrOchoa Frost Erythrocyte distribution width (RBC) [Ratio] 14.0 % Normal 11.0-15.0 [facility] Comment on above: Performed By: #### C BC ####[facility] [address] [place], [place] [address]DrOchoa Frost Hematocrit (Bld) [Volume fraction] 39.2 % Normal 36.0-48.0 [facility] Comment on above: Performed By: #### C BC ####[facility] [address] [place], [place] [address]DrOchoa Frost Hemoglobin (Bld) [Mass/Vol] 12.5 g/dL Normal 12.0-16.0 [facility] Comment on above: Performed By: #### C BC ####[facility] [address] [address]Dr. Agnes Santosh IG # 0.02 10e3/ul Normal 0.00-0.03 [facility] Comment on above: Performed By: #### C BC ####[facility] [address] [address]Dr. Agnes Santosh IG % 0.2 % Normal 0.0-0.5 [facility] Comment on above: Performed By: #### C BC ####[facility] [address] [place], [place] [address]DrOchoa Agnes Santosh LYMPH # 4.3 103/ul Critically high 1.2-3.8 [facility] Comment on above: Performed By: #### C BC ####[facility] [address] [place], [place] [address]Dr. Amandamariana Frost Lymphocytes/100 WBC (Bld) 46.6 % Normal 20.5-60.0 [facility] Comment on above: Performed By: #### C BC ####[facility] [address] [place], [place] [address]DrOchoa Amandamariana Frost MANUAL DIFF REQ NO Normal [facility] Comment on above: Performed By: #### C BC ####[facility] [address] [place], [place] [address]DrOchoa Agnes Frost MCH (RBC) [Entitic mass] 29.1 pg Normal 26.7-34.0 [facility] Comment on above: Performed By: #### C BC ####[facility] [address] [place], [place] [address]DrOchoa Agnes Santosh MCHC (RBC) [Mass/Vol] 31.9 g/dL Normal 29.9-35.2 [facility] Comment on above: Performed By: #### C BC ####[facility] [address] [place], [place] [address]DrOchoa Agnes Santosh MCV (RBC) [Entitic vol] 91.4 fL Normal 81.0-99.0 [facility] Comment on above: Performed By: #### C BC ####[facility] [address] [place], [place] [address]Dr. Agnes Frost MONO # 0.8 103/ul Normal 0.3-0.8 [facility] Comment on above: Performed By: #### C BC ####[facility] [address] [address]Dr. Agnes Frost Monocytes/100 WBC (Bld) 8.1 % Normal 1.7-12.0 [facility] Comment on above: Performed By: #### C BC ####[facility] [address] [address] [address]Dr. Agnes Frost NEUT # 3.7 103/ul Normal 1.4-6.5 [facility] Comment on above: Performed By: #### C BC ####[facility] [address] [place], [place] [address]Dr. Agnes Frost Neutrophils/100 WBC (Bld) 39.9 % Critically low 43.0-75.0 [facility] Comment on above: Performed By: #### C BC ####[facility] [address] [place], [place] [address]Dr. Agnes Frost Platelet mean volume (Bld) [Entitic vol] 9.2 fL Critically low 9.5-13.5 [facility] Comment on above: Performed By: #### C BC ####[facility] [address] [place], [place] [address]Dr. Agnes Frost PLT 366 103/ul Normal 150-450 [facility] Comment on above: Performed By: #### C BC ####[facility] [address] [place], [place] [address]Dr. Agnes Frost RBC 4.29 106/ul Normal 4.20-5.40 [facility] Comment on above: Performed By: #### C BC ####[facility] [address] [place], [place] [address]Dr. Agnes Frost WBC 9.3 103/ul Normal 4.0-11.0 [facility] Comment on above: Performed By: #### C BC ####[facility] [address] [place], [place] [address]Dr. Agnes Santosh ECHOCARDIO M/2D COMPLETEon 0 01-11-2022 ECHOCARDIO M/2D COMPLETE Patient: KETTY ROCA Exam Date: 01/11/2022 : 1970 Gender:F Ordering : DR ONEIL PANDEY . Admission #: [id number] Family : DR AMPARO MoscosoOchoa WELLER Order #: [id number] CLICK HERE TO VIEW EXAM ECHOCARDIOGRAM REPORT [...] Area(A4C): 18.90 cm2 Left Atrium Systolic Volume(A2C): 58527 mm3 Left Atrium Systolic Volume(A4C): 37552 mm3 Mitral Valve MV E to A [...] Vides M.D. on 01/11/2022 at 19:49 Normal [facility] NM STRESS/REST MULTIon 01-11 PA STRESS/REST MULTI Patient: KETTY ROCA Exam Date: 01/11/2022 : 1970 Gender:F Ordering : DR ONEIL PANDEY . Admission #: [id number] Family : Order #: [id number] CLICK HERE TO VIEW EXAM RADIOLOGY REPORT [...] M.D. on 01/11/2022 at 15:59 Normal [facility] PROF 14(COMP METB)on 022 Albumin [Mass/Vol] 3.5 g/dL Normal 3.4-5.0 [facility] Comment on above: Performed By: #### B [employer] SHIPPER, CMP #### [facility] [address] [place] [address] Dr. Agnes Frost Albumin/Globulin [Mass ratio] 0.9 {ratio} Normal [facility] Comment on above: Performed By: #### B [employer]ODU[employer] SHIPPER, CMP #### [facility] [address] [place] [address] Dr. Agnes Frost ALP [Catalytic activity/Vol] 100 U/L Normal 46-116 [facility] Comment on above: Performed By: #### B [employer] SHIPPER, CMP #### [facility] [address] [place] [address] Dr. Agnes Frost ALT [Catalytic activity/Vol] 31 U/L Normal 14-59 [facility] Comment on above: Performed By: #### B [employer] SHIPPER, CMP #### [facility] [address] [address] [address] Agnes Frost Anion gap [Moles/Vol] 10.1 mmol/L Normal [facility] Comment on above: Performed By: #### B [employer]ODU[employer] SHIPPER, CMP #### [facility] [address] [place] [address] Dr. Agnes Frost AST [Catalytic activity/Vol] 19 U/L Normal 15-37 [facility] Comment on above: Performed By: #### B [employer] SHIPPER, CMP #### [facility] [address] [address] [address] Agnes Frost Bilirubin [Mass/Vol] 0.3 mg/dL Normal 0.2-1.0 [facility] Comment on above: Performed By: #### B [employer] SHIPPER, CMP #### [facility] [address] [place] [address] Dr. Agnes Frost Calcium [Mass/Vol] 9.1 mg/dL Normal 8.5-10.1 [facility] Comment on above: Performed By: #### B [employer] SHIPPER, CMP #### [facility] [address] [place] [address] Dr. Agnes Frost Chloride [Moles/Vol] 105 mmol/L Normal 98-107 [facility] Comment on above: Performed By: #### B FARM [employer] SHIPPER, CMP #### [facility] [address] [place] [address] Dr. Agnes Frost CO2 [Moles/Vol] 28.2 mmol/L Normal 21.0-32.0 [facility] Comment on above: Performed By: #### B FARM [employer]ODU[employer] SHIPPER, CMP #### [facility] [address] [place] [address] Dr. Agnes Frost Creatinine [Mass/Vol] 0.76 mg/dL Normal 0.55-1.02 [facility] Comment on above: Performed By: #### B F[employer] PRODU[employer] SHIPPER, CMP #### [facility] [address] [place] [address] Dr. Agnes Frost EGFR-AF BELGIAN >60 Normal >=60 [facility] Comment on above: Performed By: #### B F[employer]ODU[employer] SHIPPER, CMP #### [facility] [address] [place] [address] Dr. Agnes Frost EGFR-NON AF BELGIAN >60 Normal >=60 [facility] Comment on above: Performed By: #### B F[employer] SHIPPER, CMP #### [facility] [address] [place] [address] Dr. Agnes Frost Globulin (S) [Mass/Vol] 3.8 g/dL Normal [facility] Comment on above: Performed By: #### B F[employer] SHIPPER, CMP #### [facility] [address] [address] [address] Agnes Frost Glucose [Mass/Vol] 105 mg/dL Normal 74-106 [facility] Comment on above: Performed By: #### B F[employer] PR[employer] SHIPPER, CMP #### [facility] [address] [address] [address] Agnes Frost Potassium [Moles/Vol] 4.3 mmol/L Normal 3.5-5.1 [facility] Comment on above: Performed By: #### B F[employer] SHIPPER, CMP #### [facility] [address] [address] [address] Agnes Frost Protein [Mass/Vol] 7.3 g/dL Normal 6.4-8.2 [facility] Comment on above: Performed By: #### B F[employer]ODU[employer] SHIPPER, CMP #### [facility] [address] [address] [address] Agnes Frost Sodium [Moles/Vol] 139 mmol/L Normal 136-145 [facility] Comment on above: Performed By: #### B FARM PRODU[employer] SHIPPER, CMP #### [facility] [address] [address] [address] Agnes Frost Urea nitrogen [Mass/Vol] 14.0 mg/dL Normal 7.0-18.0 [facility] Comment on above: Performed By: #### B F[employer] SHIPPER, CMP #### [facility] [address] [address] [address] Agnes Frost Urea nitrogen/Creatinin e [Mass ratio] 18.4 mg/mg Normal [facility] Comment on above: Performed By: #### B FARM [employer]ODU[employer] SHIPPER, CMP #### [facility] [address] [address] [address] Agnes Frost TSHon 01-11-2022 TSH 2.224 uIU/mL Normal 0.358-3.740 [facility] Comment on above: Performed By: #### T SH ####[facility] [address] [address]Dr. Agnes Frost TSH RANGE SEE BELOW Normal [facility] Comment on above: Result Comment: <0.3 4 UIU/ml HYPERTHYROID 0.34-5.60 UIU/ml EUTHYROID >5.60 UIU/ml HYPOTHYROID Performed By: #### T SH ####[facility] [address] [address]Dr. Agnes Frost BNPon 01-10-2022 Natriuretic peptide B (Bld) [Mass/Vol] 17.0 pg/mL Normal <=900.0 [facility] Comment on above: Performed By: #### C MP, LIPA, BNP, HSTROPN ####[facility] [address] [address]Dr. Agnes Frost CARDIAC KORY 3-6on 2 CK [Catalytic activity/Vol] 192 U/L Normal 26-192 [facility] Comment on above: Performed By: #### C MREP ####[facility] [address] [place], [place] [address]Dr. Agnes Frost CK.MB [Mass/Vol] 2.88 ng/mL Normal <=3.60 [facility] Comment on above: Performed By: #### C MREP ####[facility] [address] [address]Dr. Agnes Frost HSTROP 4.7 pg/mL Normal 4.0-51.3 [facility] Comment on above: Result Comment: CUT- OFF POINTS HAVE BEEN ESTABLISHED BASED ON THE FOURTH UNIVERSAL DEFINITIONS OF MYOCARDIAL INFARCTION. THE UPPER REFERENCE LIMIT (URL) OF TROPONIN, DEFINED THE 99TH PERCENTILE OF cTnI DISTRIBUTION IN A REFERENCE POPULATION, HAS BEEN CONFIRMED THE DECISION THRESHOLD FOR ID DIAGNOSIS. Performed By: #### C MREP ####[facility] [address] [address]Dr. Agnes Frost CK [Catalytic activity/Vol] 213 U/L Critically high 26-192 [facility] Comment on above: Performed By: #### C MREP #### [facility] [address] [address] [address] Agnes Frost CK.MB [Mass/Vol] 3.29 ng/mL Normal <=3.60 [facility] Comment on above: Performed By: #### C MREP #### [facility] [address] [place] [address] Dr. Agnes Frost HSTROP 4.4 pg/mL Normal 4.0-51.3 [facility] Comment on above: Result Comment: CUT- OFF POINTS HAVE BEEN ESTABLISHED BASED ON THE FOURTH UNIVERSAL DEFINITIONS OF MYOCARDIAL INFARCTION. THE UPPER REFERENCE LIMIT (URL) OF TROPONIN, DEFINED THE 99TH PERCENTILE OF cTnI DISTRIBUTION IN A REFERENCE POPULATION, HAS BEEN CONFIRMED THE DECISION THRESHOLD FOR ID DIAGNOSIS. Performed By: #### C MREP #### [facility] [address] [place] [address] Dr. Agnes Frost CBC AUTO DIFFon 01-10-2022 BASO # 0.1 103/ul Normal 0.0-0.1 [facility] Comment on above: Performed By: #### C BC #### [facility] [address] [place] [address] Dr. Agnes Frost Basophils/100 WBC (Bld) 0.8 % Normal 0.2-2.0 [facility] Comment on above: Performed By: #### C BC #### [facility] [address] [place] [address] Dr. Agnes Frost EO # 0.3 103/ul Normal 0.0-0.7 [facility] Comment on above: Performed By: #### C BC #### [facility] [address] [place] [address] Dr. Agnes Frost Eosinophils/100 WBC (Bld) 3.1 % Normal 0.9-7.0 [facility] Comment on above: Performed By: #### C BC #### [facility] [address] [place] [address] Dr. Agnes Frost Erythrocyte distribution width (RBC) [Ratio] 13.9 % Normal 11.0-15.0 [facility] Comment on above: Performed By: #### C BC #### [facility] [address] [place] [address] Dr. Agnes Frost Hematocrit (Bld) [Volume fraction] 38.8 % Normal 36.0-48.0 [facility] Comment on above: Performed By: #### C BC #### [facility] [address] [place] [address] Dr. Agnes Frost Hemoglobin (Bld) [Mass/Vol] 12.5 g/dL Normal 12.0-16.0 [facility] Comment on above: Performed By: #### C BC #### [facility] [address] [address] [address] Agnes Frost IG # 0.03 10e3/ul Normal 0.00-0.03 [facility] Comment on above: Performed By: #### C BC #### [facility] [address] [place] [address] Dr. Agnes Frost IG % 0.3 % Normal 0.0-0.5 [facility] Comment on above: Performed By: #### C BC #### [facility] [address] [place] [address] Dr. Agnes Frost LYMPH # 4.3 103/ul Critically high 1.2-3.8 [facility] Comment on above: Performed By: #### C BC #### [facility] [address] [place] [address] Dr. Agnes Frost Lymphocytes/100 WBC (Bld) 39.5 % Normal 20.5-60.0 [facility] Comment on above: Performed By: #### C BC #### [facility] [address] [place] [address] Dr. Agnes Frost MANUAL DIFF REQ NO Normal [facility] Comment on above: Performed By: #### C BC #### [facility] [address] [place] [address] Dr. Agnes Frost MCH (RBC) [Entitic mass] 29.1 pg Normal 26.7-34.0 [facility] Comment on above: Performed By: #### C BC #### [facility] [address] [place] [address] Dr. Agnes Frost MCHC (RBC) [Mass/Vol] 32.2 g/dL Normal 29.9-35.2 [facility] Comment on above: Performed By: #### C BC #### [facility] [address] [address] [address] Agnes Frost MCV (RBC) [Entitic vol] 90.4 fL Normal 81.0-99.0 [facility] Comment on above: Performed By: #### C BC #### [facility] [address] [address] [address] Agnes Frost MONO # 0.7 103/ul Normal 0.3-0.8 [facility] Comment on above: Performed By: #### C BC #### [facility] [address] [address] [address] Agnes Frost Monocytes/100 WBC (Bld) 6.8 % Normal 1.7-12.0 [facility] Comment on above: Performed By: #### C BC #### [facility] [address] [place] [address] Dr. Agnes Frost NEUT # 5.3 103/ul Normal 1.4-6.5 [facility] Comment on above: Performed By: #### C BC #### [facility] [address] [place] [address] Dr. Agnes Frost Neutrophils/100 WBC (Bld) 49.5 % Normal 43.0-75.0 [facility] Comment on above: Performed By: #### C BC #### [facility] [address] [place] [address] Dr. Agnes Frost Platelet mean volume (Bld) [Entitic vol] 9.2 fL Critically low 9.5-13.5 [facility] Comment on above: Performed By: #### C BC #### [facility] [address] [place] [address] Dr. Agnes Frost PLT 443 103/ul Normal 150-450 [facility] Comment on above: Performed By: #### C BC #### [facility] [address] [place] [address] Dr. Agnes Frost RBC 4.29 106/ul Normal 4.20-5.40 [facility] Comment on above: Performed By: #### C BC #### [facility] [address] [address] [address] Agnes Frost WBC 10.8 103/ul Normal 4.0-11.0 [facility] Comment on above: Performed By: #### C BC #### [facility] [address] [address] [address] Agnes Frost Covid-19 PCR (CVDTB)on SARS-CoV-2 (COVID-19) RNA PHILOMENA+probe Ql (Unsp spec) Not detected Normal NOT DETECTED [facility] Comment on above: Result Comment: [...] for this test is supported by the [employer] of [employer] and Human Service's declaration that [...] be used). Performed By: #### C VDTB ####[facility] [address] [address]Dr. Agnes Frost ER URINE PROFILEon 2 Bilirubin Ql (U) Negative Normal NEGATIVE [facility] Comment on above: Performed By: #### E RUR #### [facility] [address] [address] [address] Agnes Frost Clarity (U) CLEAR Normal CLEAR [facility] Comment on above: Performed By: #### E RUR #### [facility] [address] [address] [address] Agnes Frost Color (U) LT. YELLOW Normal YELLOW [facility] Comment on above: Performed By: #### E RUR #### [facility] [address] [place] [address] Dr. Agnes KATHLEEN A micrscopic examination will be performed if indicated. Normal [facility] Comment on above: Performed By: #### E RUR #### [facility] [address] [place] [address] Dr. Agnes Frost Glucose Ql (U) Negative Normal NEGATIVE [facility] Comment on above: Performed By: #### E RUR #### [facility] [address] [place] [address] Dr. Agnes Frost Hemoglobin Ql (U) Negative Normal NEGATIVE [facility] Comment on above: Performed By: #### E RUR #### [facility] [address] [place] [address] Dr. Agnes Frost Ketones Ql (U) Negative Normal NEGATIVE [facility] Comment on above: Performed By: #### E RUR #### [facility] [address] [place] [address] Dr. Agnes Frost LEUKOCYTES Negative Normal NEGATIVE [facility] Comment on above: Performed By: #### E RUR #### [facility] [address] [place] [address] Dr. Agnes Frost Nitrite Ql (U) Negative Normal NEGATIVE [facility] Comment on above: Performed By: #### E RUR #### [facility] [address] [place] [address] Dr. Agnes Frost pH (U) 5.5 [pH] Normal 5-9 [facility] Comment on above: Performed By: #### E RUR #### [facility] [address] [place] [address] Dr. Agnes Frost SPEC GRAVITY <=1.005 Abnormal 1.005-<=1.025 [facility] Comment on above: Performed By: #### E RUR #### [facility] [address] [place] [address] Dr. Agnes Frost UA PROTEIN Negative Normal NEGATIVE/ TRACE [facility] Comment on above: Performed By: #### E RUR #### [facility] [address] [place], [place] [id number] Dr. Agnes Frost UR MICRO IND NOT INDICATED Normal [facility] Comment on above: Performed By: #### E RUR #### [facility] [address] [address] [address] Agnes Frost Urobilinogen Qn (U) 0.2 {Anette'U}/dL Normal 0.2 - 1.0 [facility] Comment on above: Performed By: #### E RUR #### [facility] [address] [address] [address] Agnes Frost LIPASEon 01-10-2022 Lipase [Catalytic activity/Vol] 212.0 U/L Normal 73.0-393.0 [facility] Comment on above: Performed By: #### C MP, LIPA, BNP, HSTROPN ####[facility] [address] [address]Dr. Agnes Frost PROF 14(COMP METB)on 022 Albumin [Mass/Vol] 3.9 g/dL Normal 3.4-5.0 [facility] Comment on above: Performed By: #### C MP, LIPA, BNP, HSTROPN #### [facility] [address] [place] [address] Dr. Agnes Frost Albumin/Globulin [Mass ratio] 1.0 {ratio} Normal [facility] Comment on above: Performed By: #### C MP, LIPA, BNP, HSTROPN #### [facility] [address] [place] [address] Dr. Agnes Frost ALP [Catalytic activity/Vol] 115 U/L Normal 46-116 [facility] Comment on above: Performed By: #### C MP, LIPA, BNP, HSTROPN #### [facility] [address] [place] [address] Dr. Agnes Frost ALT [Catalytic activity/Vol] 32 U/L Normal 14-59 [facility] Comment on above: Performed By: #### C MP, LIPA, BNP, HSTROPN #### [facility] [address] [place] [address] Dr. Agnes Frost Anion gap [Moles/Vol] 14.4 mmol/L Normal [facility] Comment on above: Performed By: #### C MP, LIPA, BNP, HSTROPN #### [facility] [address] [place] [address] Dr. Agnes Frost AST [Catalytic activity/Vol] 21 U/L Normal 15-37 [facility] Comment on above: Performed By: #### C MP, LIPA, BNP, HSTROPN #### [facility] [address] [place] [address] Dr. Agnes Frost Bilirubin [Mass/Vol] 0.3 mg/dL Normal 0.2-1.0 [facility] Comment on above: Performed By: #### C MP, LIPA, BNP, HSTROPN #### [facility] [address] [place] [address] Dr. Agnes Frost Calcium [Mass/Vol] 9.7 mg/dL Normal 8.5-10.1 [facility] Comment on above: Performed By: #### C MP, LIPA, BNP, HSTROPN #### [facility] [address] [place] [address] Dr. Agnes Frost Chloride [Moles/Vol] 104 mmol/L Normal 98-107 [facility] Comment on above: Performed By: #### C MP, LIPA, BNP, HSTROPN #### [facility] [address] [place] [address] Dr. Agnes Frost CO2 [Moles/Vol] 22.8 mmol/L Normal 21.0-32.0 [facility] Comment on above: Performed By: #### C MP, LIPA, BNP, HSTROPN #### [facility] [address] [place] [address] Dr. Agnes Frost Creatinine [Mass/Vol] 0.67 mg/dL Normal 0.55-1.02 [facility] Comment on above: Performed By: #### C MP, LIPA, BNP, HSTROPN #### [facility] [address] [place] [address] Dr. Agnes Frost EGFR-AF BELGIAN >60 Normal >=60 [facility] Comment on above: Performed By: #### C MP, LIPA, BNP, HSTROPN #### [facility] [address] [address] [address] Agnes Frost EGFR-NON AF BELGIAN >60 Normal >=60 [facility] Comment on above: Performed By: #### C MP, LIPA, BNP, HSTROPN #### [facility] [address] [address] [address] Agnes Frost Globulin (S) [Mass/Vol] 4.0 g/dL Normal [facility] Comment on above: Performed By: #### C MP, LIPA, BNP, HSTROPN #### [facility] [address] [place] [address] Dr. Agnes Frost Glucose [Mass/Vol] 101 mg/dL Normal 74-106 [facility] Comment on above: Performed By: #### C MP, LIPA, BNP, HSTROPN #### [facility] [address] [address] [address] Agnes Frost Potassium [Moles/Vol] 4.2 mmol/L Normal 3.5-5.1 [facility] Comment on above: Performed By: #### C MP, LIPA, BNP, HSTROPN #### [facility] [address] [place] [address] Dr. Agnes Frost Protein [Mass/Vol] 7.9 g/dL Normal 6.4-8.2 [facility] Comment on above: Performed By: #### C MP, LIPA, BNP, HSTROPN #### [facility] [address] [address] [address] Agnes Frost Sodium [Moles/Vol] 137 mmol/L Normal 136-145 [facility] Comment on above: Performed By: #### C MP, LIPA, BNP, HSTROPN #### [facility] [address] [address] [address] Agnes Frost Urea nitrogen [Mass/Vol] 16.0 mg/dL Normal 7.0-18.0 [facility] Comment on above: Performed By: #### C MP, LIPA, BNP, HSTROPN #### [facility] [address] [place] [address] Dr. Agnes Frost Urea nitrogen/Creatinin e [Mass ratio] 23.9 mg/mg Normal [facility] Comment on above: Performed By: #### C MP, LIPA, BNP, HSTROPN #### [facility] [address] [place] [address] Dr. Agnes Frost PROTIMEon 01-10-2022 INR Coag (PPP) [Relative time] 1.01 {INR} Normal [facility] Comment on above: Performed By: #### P TT, PT #### [facility] [address] [place] [address] Dr. Agnes Frost INR GUIDELINES SEE BELOW Normal [facility] Comment on above: Result Comment: NAZANIN RED INR: 2.0 - 3.0 CONDITIONS NOT LISTED BELOW 2.5 - 3.5 FOR PROSTHETIC HEART VALVE REPLACEMENT 2.5 - 3.5 RECURRENT THROMBOSIS Performed By: #### P TT, PT #### [facility] [address] [place] [address] Dr. Agnes Frost PT Coag (PPP) [Time] 10.9 s Normal 9.0-11.6 [facility] Comment on above: Performed By: #### P TT, PT #### [facility] [address] [place] [address] Dr. Agnes Frost PTTon 01-10-2022 aPTT Coag (Bld) [Time] 28.8 s Normal 22.3-36.2 [facility] Comment on above: Performed By: #### P TT, PT #### [facility] [address] [place] [address] Dr. Agnes Frost TROPONIN, HIGH SENSITIVITYon 01-10-2022 HSTROP 5.8 pg/mL Normal 4.0-51.3 [facility] Comment on above: Result Comment: CUT- OFF POINTS HAVE BEEN ESTABLISHED BASED ON THE FOURTH UNIVERSAL DEFINITIONS OF MYOCARDIAL INFARCTION. THE UPPER REFERENCE LIMIT (URL) OF TROPONIN, DEFINED THE 99TH PERCENTILE OF cTnI DISTRIBUTION IN A REFERENCE POPULATION, HAS BEEN CONFIRMED THE DECISION THRESHOLD FOR ID DIAGNOSIS. Performed By: #### C MP, LIPA, BNP, HSTROPN ####[facility] [address] [place], [place] [address]HiOchoa Frost XR CHEST 1 Von 01-10-2022 XR [...] by: AMINA LEE Date: 2022-01-10 15:00 Normal [facility] PROGRESSon 06-21-2017 PROGRESS HNO ID: [id number]: Katie Dacostaice: (none)Author Type: PhysicianType: Progress NotesFiled: [...] kg (202 lb 6.4 oz) BMI 32.18 kg/u5HCNGQ: Normocephalic, atraumatic, mucus membranes moist and no [...] office note were sent to:Antony Zaldivar MD[address] [facility] [id number]:Nik Weller MD (PCP) Normal [facility] CNOVon 06-18-2017 CNOV Office Visit (GYNOSA) RAHAT KETTY NOEL ([id number]) 1970 FDate Time Provider Mpvumpdzny90/7/17 2:40 PM KATIE PINTO During your visit [...] kg (202 lb 6.4 oz) BMI 32.18 kg/j9APRMQ: Normocephalic, atraumatic, mucus membranes moist and no [...] office note were sent to:Antony Zaldivar MD[address] [facility] [id number]:Nik Weller MD (PCP)Referring Provider: KATIE PINTO [[id number]]Allergies As of Date: 06/18/2017(No Known Allergies)Date Reviewed: 06/18/2017Reviewed by: Joana Bah AssessedReason for Visit: Vulvar dysplasia [Other] Cmt: 6 month follow upPrimary Visit Diagnosis: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]Prescriptions as of 06/18/2017 Sig: FLUOXETINE 40 MG CAPSULE Take 40 mg by mouth once agnie* TRAMADOL 50 MG TABLET Take 50 mg by mouth as needed.Problem List As Of Date 06/18/2017 Noted Resolved 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] INVALID FOR* Status:Closed by KATIE PINTO MD on 06/21/17 Normal [facility] Vital Signs Date Time Vital Sign Value Performing Clinician Faci lity 02-11-2024 09:46-0400 Body height 172.7 cm Dustin Koch MD Work Phone: [facility] 02-11-2024 09:46-0400 Body mass index (BMI) [Ratio] 31.08 kg/m2 Dustin Koch MD Work Phone: [facility] 02-11-2024 09:46-0400 Body weight 92.72 kg Dustin Koch MD Work Phone: [facility] 02-11-2024 09:46-0400 Diastolic blood pressure 88 mm[Hg] Dustin Koch MD Work Phone: [facility] 02-11-2024 09:46-0400 Heart rate 84 /min Dustin Koch MD Work Phone: [facility] 02-11-2024 09:46-0400 SaO2% (BldA) [Mass fraction] 97 % Dustin Koch MD Work Phone: [facility] 02-11-2024 09:46-0400 Systolic blood pressure 148 mm[Hg] Dustin Koch MD Work Phone: [facility] 04-19-2019 11:38-0400 BP Diastolic 85 mm[Hg] [facility] [place] 04-19-2019 11:38-0400 BP Systolic 131 mm[Hg] [facility] [place] 04-19-2019 11:38-0400 Pulse (Heart Rate) 79 /min Chana Lujan [facility], [place] 04-19-2019 11:38-0400 Pulse Oximetry 99 % Chana Escamilla [facility], [place] 04-19-2019 11:38-0400 Respiratory Rate 14 /min Chana Escamilla [facility], [place] 04-19-2019 10:21-0400 BMI (Body Mass Index) 31.32 kg/m2 Chana Polo [facility], [place] 04-19-2019 10:21-0400 Body Temperature 97.81 [degF] Chana Escamilla [facility] 04-19-2019 10:21-0400 Body weight 93.44 kg [facility] [place] 04-19-2019 10:21-0400 Height 172.7 cm [facility] [place] Encounters Encounter Date Encounter Type Care Provider Facility Start: 09-14-2024 End: 09-14-2024 Refill Roxann Major LPN [facility] Comment on above: Med Refill Start: 02-11-2024 End: 02-11-2024 Office outpatient visit 25 minutes Dustin Koch MD [facility] Phone[facility] Comment on above: Microvascular angina ([facility]) (Primary Dx) Start: 02-11-2024 End: 02-11-2024 ambulatory DUSTIN KOCH [facility] Start: 02-10-2024 End: 02-10-2024 Telephone encounter Dalia Perry CMA [facility] Start: 12-27-2023 End: 12-27-2023 Documentation procedure Devon Greenberg MD Work Phone: [facility] Start: 12-02-2022 End: 12-02-[address] DOCTOR KIDD Facility:[facility] Start: 01-10-2022 End: 01-11-[address] DOCTOR KIDD Facility:[facility] Start: 04-19-2019 End: 04-19-2019 [facility] Start: 04-19-2019 End: 04-19-2019 Emergency department patient visit [facility] ED Comment on above: Right arm pain (Prim garry Dx); Contusion of right elbow, initial encounter; Ulnar neuropathy at elbow of right upper extremity Start: 06-18-2017 End: 06-24-2017 Ambulatory KATIE [facility] Procedures Date Procedure Procedure Detail Performing Clinician Start: 02-11-2024 Follow-up visit Follow-up DUSTIN KOCH Start: 04-19-2019 ED NURSING COMMUNICATION CHANA PORTILLO Start: 04-18-2018 H/O: surgery S/P nasal septoplasty Devon Greenberg MD Work Phone: Plan of Treatment Date Care Activity Detail Author Start: 02-10-2025 Adult BMI Screening Adult BMI Screen ing [facility] Start: 02-10-2025 Tobacco Screening Tobacco Screening [facility] Start: 10-30-2024 End: 10-30-2024 Patient encounter procedure 10/30/2024 2:30 PM EDT Office Visit [facility] [address] [place] [address] Dustin Koch MD [facility] [place], [place] [id number] [facility] Start: 07-02-2024 Adult BMI Screening Adult BMI Screen ing [facility] Start: 07-02-2024 Tobacco Screening Tobacco Screening [facility] Start: 04-12-2024 Influenza vaccination Influenza Vacc ine [facility] Start: 02-11-2024 End: 02-11-2024 Patient encounter procedure 02/11/2024 10:15 AM EDT Office Visit [facility] [address] [place] [address] Dustin Koch MD [address] [place] [address] [facility] Start: 04-12-2019 Influenza vaccination Flu vaccine (# 1) [place], [place] Start: 2018 Administration of varicella zoster vaccine Zoster (Shingles) Vaccine (1 of 2) [facility] Start: 2018 Breast cancer screen Breast cancer s tonya [place], [place] Start: 1987 DTaP,Tdap and Td Vaccines (1 - Tdap) DTaP,Tdap and Td Vaccines (1 - [facility]dap) [facility] Start: 1986 Adult BMI Follow Up Plan Adult BMI F ollow Up Plan [facility] Start: 1980 Depression Screening [facility]ing [facility] Start: 1968 Tobacco Counseling Tobacco Counselin g [facility] End: 09-14-2025 Lipid 1996 panel - Serum or Plasma Lipid profile Lab Routine Mixed hyperlipidemia Chest pain, unspecified type 1 Occurrences starting 09/14/2024 until 09/14/2025 [employer] Work Phone: Comment on above: 1 Occurrences starti ng 09/14/2024 until 09/14/2025 Payers Date Payer Category [place] [id number] 2022-Present [phone] [address] [place] [address] [id number] 2012 Medicare MEDICARE MEDICAR E PART A AND B xxxxxxxxxxx 2012-Present [phone] [address] [address] [place] [address] xxxxxxxxxxx [id number] 2012 Medicare [id number] 2005 Unknown [id number] 2005 Unknown GENERIC MCO GENE NEDRA MCO WC xxxxxxxx 2005-Present [address] [place] [address] xxxxxxxx [id number] 1968 Unknown [id number] 1968 Unknown [id number] 1968 Unknown [id number] 1968 Unknown [id number] 1959 Medicaid [id number] 1961 Medicare [id number] Social History Date Type Detail Facility Start: 04-19-2019 End: 02-11-2024 Tobacco smoking status NHIS Current every day smoker [facility] History of tobacco use Cigarette Smoker [place], [place] Start: 04-19-2019 End: 09-22-2020 Cigarettes smoked current (pack per day) - Reported [place], [place] Start: 1970 Sex Assigned At Not on file [place], [place] Start: 03-29-2023 End: 02-11-2024 Tobacco use and exposure Smokeless tobacco non-user [facility] Start: 07-02-2023 End: 02-11-2024 Alcoholic beverage intake Current drinker of alcohol (finding) [facility] Start: 09-22-2020 End: 02-11-2024 Tobacco use panel [facility] Childcare Unknown [facility] Start: 01-22-2018 Alcohol Comment social [facility] Start: 03-17-2015 Sex Female (finding) [facility] History of Present illness Narrative 02-11-2024 Dustin [...] presents with Follow-up EST PT F/U IN [facility] SCHED W/ PT History of Present [...] Medical History: Diagnosis Date Bronchitis Bronchitis Cancer ([facility]) vulva cancer Chest pain Depression Deviated septum Epicondylitis elbow, medial, right Fatigue Migraine Shortness of breath Sleep apnea cpap Ulnar neuropathy Visual impairment glasses No data recorded No data recorded No data recorded Past Surgical History: Procedure Laterality Date ANKLE SURGERY Right CLOSED REDUCTION UPPER EXTREMITY 4 arm surgeries, right HYSTERECTOMY RESECTION SUBMUCOSAL Bilateral 04/10/2018 Performed by Carson Holman MD at [facility] SEPTOPLASTY N/A 04/10/2018 Performed by Carson Holman MD at [facility] Family History Problem Relation Age of Onset [...] Weller MD Referring Physician: Lin Weller MD [address] [place] [address] documented in this encounter [employer] [facility] Instructions 02-11-2024 Patient Instructions Note Date & Type Note Facility 02-11-2024 Instructions Rose Lang CMA - 02/11/2024 10:15 AM EDT Are You Ready To Kick The Habit? Free Tobacco Cessation Resources [facility] Services [facility] provide all employees with free tobacco cessation services that include: Counseling to understand nicotine addiction Education about medications that can help you successfully quit Assistance with developing a plan to quit Call to set up an individual appointment or find out when group classes will be held: [facility]: [phone] [facility]: [phone] [facility]: [phone] [facility] [place]: [phone] Quit Smoking Action Plan and Resources [facility] offers an eight-week, online smoking cessation plan to all [facility] employees, regardless of whether [employer] is your medical insurance provider. Go to www.Net[employer].org/employeewellness and click the Health Risk Assessment and Resources link to get started. In the Splice menu, click Action Plans instead of Health Risk Assessment to access the Quit Smoking Action Plan. Additional smoking cessation resources are also available to all [facility] employees on the Jhamc9Znkkxk web page at www.Obvious/quitmarco antonioi cami. [employer] Tobacco Cessation Program If [employer] is your medical insurance provider, there are more free resources available to you, including: No copays or deductibles on local tobacco cessation counseling services to help you quit Prescription assistance for tobacco cessation medications to help you quit For details about the tobacco cessation program available to [employer] members, go to www.Obvious (Search: Tobacco Cessation Program). [place] Tobacco Quit Line 2-171-CYFD-NOW ( ) is a toll-free, telephonic service that helps [place] residents quit smoking and using tobacco. It is staffed by experts who tailor a quit plan for you and provide you with advice. [place] Tobacco Quit Line 0-755-LAIG-NOW ( ) is a toll-free, telephonic service that helps [place] residents quit smoking and using tobacco. It is staffed by experts who tailor a quit plan for you and provide you with advice. Two weeks of nicotine replacement therapy may be provided at no charge, if needed. Additional Resources These national organizations also offer free information and resources to help you quit tobacco: [place] [employer]--www.cancer.org/healthy/staya wayfromtobacco [place] [employer]--www.heart.org (Search: Quit Smoking) Centers for Disease Control and Prevention--www.cdc.gov/tobacco [place] Lung Association--www.lungusa.org documented in this encounter [facility] Note 02-10-2024 Telephone Encounter - Dalia Perry CMA - 02/10/2024 9:30 AM EDT Note Date & Type Note Facility 02-10-2024 Miscellaneous Notes Formattin g of this note might be different from the original. Called patient to remind them to bring their most current copy of their medication list with them to their appt. Patient verbalizes understanding. documented in this encounter [facility] Telephone encounter Note 02-10-2024 Telephone Encounter - Dalia Perry CMA - 02/10/2024 9:30 AM EDT Note Date & Type Note Facility 02-10-2024 Telephone encount er Note Called patient to remind them to bring their most current copy of their medication list with them to their appt. Patient verbalizes understanding. [facility] History of Present illness Narrative 12-27-2023 Devon Greenberg MD - 12/27/2023 2:18 PM EDT Note Date & Type Note Facility 12-27-2023 History of Presen t illness Narrative error documented in this encounter [facility] Evaluation note Note Date & Type Note Facility Evaluation note Diagnosis Mixed hyperlipidemia Chest pain, unspecified type Tobacco abuse Tobacco use disorder documented in this encounter [facility] Evaluation note Note Date & Type Note Facility Evaluation note Diagnosis Microvascular angina ([facility])- Primary documented in this encounter [facility] [...] Documents on File Type Date Recorded Patient Tower Attendant Expl anation Advance Directives and Living Will Power of Pit Laborer Discharge Instructions * Attachments The following attachments cannot be sent through Care Everywhere. * Contusion (Iranian) documented in this encounter Assessments Diagnosis Right arm pain- Primary Pain in limb Contusion of right elbow, initial encounter Ulnar neuropathy at elbow of right upper extremity Additional Source Comments INFORMATION SOURCE (unrecogn ized section and content) DATE CREATED AUTHOR 02/04/2018 [facility] DATE CREATED AUTHOR AUTHOR'S ORGANIZ ATION 04/19/2019 [facility] DATE CREATED AUTHOR AUTHOR'S ORGANIZ ATION 12/05/2022 [facility] DATE CREATED AUTHOR AUTHOR'S ORGANIZ ATION 02/12/2024 [facility] Reason for Visit (unrecogniz ed section and content) Reason Comments Arm Pain Right elbow, chronic . Pt states worse after reaching for a box at work today Reason Onset Date Comments Med Refill 09/14/2024 Reason Comments Follow-up EST PT F/U IN [facility] ER SCHED W/ PT Care Teams (unrecognized sec tion and content) Machine Specialist Relationship Specialty Start Date End Date Lin Weller MD [address] [place], [place] [id number] PCP - General Family Medicine 03/27/18 Machine Specialist Relationship Specialty Start Date End Date Lin Weller MD [address] [place] [address] PCP - General Family Medicine 03/27/18 Machine Specialist Relationship Specialty Start Date End Date Lin Weller MD [address] [place] [address] PCP - General Family Medicine 03/27/18 [...] BE BASED ON THE PRIMARY CLINICAL RECORDS. [employer] [facility]. provides no warranty or guarantee of the accuracy or completeness of information in this document.
[2024-10-26 17:13] LABS: Chol HDL Ratio 3.3; Cholesterol 154 mg/dL (<=200); HDL Cholesterol 46 mg/dL (40-60); Triglycerides 266 mg/dL (<=150); VLDL CHOLESTEROL 53.2 mg/dL
== END 2024-10-26 16:30 | disposition home or self-care (01) ==
LOC: LAB 16:33
PROVIDERS: PCP Family Medicine
DX: E78.2 Mixed hyperlipidemia (principal); R07.9 Chest pain, unspecified
CPT/HCPCS: 36415; 80061

== ENCOUNTER 2025-01-15 16:22 | Emergency (ER) | payer MEDICARE, SELFPAY ==
--- OUTSIDE RECORDS SUMMARY | 2025-01-15 16:28 | XMS_ITS | Clinical Summary ---
Author Organization [facility] Address [address] [place] [address] Care Team Providers Care Supervisor [employer] Name Role Phone Unavailable Primary Care Provider Unavailabl e Social History Tobacco Use Types Packs/Day Years Used Date Smoking Tobacco: Never Assessed CO Safety & Environment Answer Date Rec orded Fear of Current or Ex-Partner Not on file Emotionally Abused Not on file 10/03/2023 Physically Abused Not on file 10/03/2023 Sexually Abused Not on file 10/03/2023 Physically or Sexually Abused Not on file Sex and Gender Information Value Date Recorded Sex Assigned at Not on file Gender Identity Not on file Sexual Orientation Not on file Plan of Treatment Health Maintenance Due Date Last Done Comments CT Colonography 1968 Colonoscopy 1968 Colorectal Cancer Screening 1968 FIT-DNA 1968 FIT 1968 FOBT 1968 Sigmoidoscopy 1968 Depression Screening 1980 Hepatitis B Vaccines (1 of 3 - 19+ 3-dose series) 1987 Pap Smear 1989 Adult Tetanus 1990 Cervical Cancer Screening 1998 HPV/Cotest 1998 Mammogram 2008 Zoster Vaccines (1 of 2) 2018 Influenza Vaccine (Season Ended) 2025 HIB Vaccines Aged Out No longer eligi ble based on patient's age to complete this topic HPV Vaccines Aged Out No longer eligi ble based on patient's age to complete this topic IPV Vaccines Aged Out No longer eligi ble based on patient's age to complete this topic Meningococcal B Vaccine Aged Out No l onger eligible based on patient's age to complete this topic Meningococcal Vaccine Aged Out No oly pascale eligible based on patient's age to complete this topic Pneumococcal Vaccine: Pediat rics (0 to 5 Years) and At-Risk Patients (6 to 64 Years) Aged Out No longer eligible b ased on patient's age to complete this topic Rotavirus Vaccines Aged Out No longer eligible based on patient's age to complete this topic
--- OUTSIDE RECORDS SUMMARY | 2025-01-15 16:28 | XMS_ITS | Encounter Summary ---
[facility] Organization [id number] [address] [place] [address] Care Team Providers Care City Carrier Name Role Phone Chaka Gallardo MD Primary Care Provider +1- [phone] Encounter Details Date Type Department Care Team (Late st Contact Info) Description 10/25/2021 Orders Only [facility] [address] [place] [address] External, Scanning Provider Social History Tobacco Use Types Packs/Day Years Used Date Smoking Tobacco: Every Day Cigarettes Smokeless Tobacco: Never Alcohol Use Standard Drinks/Week Comments Yes 0 (1 standard drink = 0.6 oz pur e alcohol) social Childcare Answer Date Recorded Childcare Unknown 01/21/2019 Employment Answer Date Recorded Employment Unknown 01/21/2019 Purpose - Life Answer Date Recorded Purpose and direction in life Unknown Comments No Sex and Gender Information Value Date Recorded Sex Assigned at Not on file Legal Sex Female 11:47 AM EDT Gender Identity Not on file Sexual Orientation Not on file COVID-19 Exposure Response Date Recorded In the last 10 days, have yo u been in contact with someone who was confirmed or suspected to have Coronavirus/COVID-19? No / Unsure 10/23/2021 1:52 PM EDT documented as of this encounter Plan of Treatment Not on file documented as of this encounter Procedures Procedure Name Priority Date/Time Associated Diagnosis Comments MULTIPLE LABS Routine 10/03/2021 documented in this encounter Results * Multiple labs (10/03/2021) us Scanning Provider External OK IMAGING Final Result MANUALLY TRANSCRIBED RESULTS documented in this encounter Visit Diagnoses Not on filedocumented in this encounter Care Teams City Carrier Relationship Specialty Start Date End Date Chaka Gallardo MD [address] [id number] PCP - General Family Medicine 03/27/18 documented as of this encounter
--- OUTSIDE RECORDS SUMMARY | 2025-01-15 16:28 | XMS_ITS | Encounter Summary ---
[facility] Organization [facility] Address [id number] [address] [place] [address] Care Team Providers Care Pyrotechnic Assembler Name Role Phone Chaka Gallardo MD Primary Care Provider +1- [phone] Encounter Details Date Type Department Care Team (Late st Contact Info) Description 02/12/2024 Orders Only [facility] [address] [place] [address] External, Scanning Provider Social History Tobacco Use Types Packs/Day Years Used Date Smoking Tobacco: Every Day Cigarettes Smokeless Tobacco: Never Alcohol Use Standard Drinks/Week Comments Yes 0 (1 standard drink = 0.6 oz pur e alcohol) social Childcare Answer Date Recorded Childcare Unknown 01/21/2019 Employment Answer Date Recorded Employment Unknown 01/21/2019 Hunger Screening Answer Date Recorded Within the past 12 months we worried whether our food would run out before we got money to buy more. Never True 02/11/2024 Within the past 12 months th e food we bought just didn't last and we didn't have money to get more. Never True 02/11/2024 Purpose - Life Answer Date Recorded Purpose and direction in life Unknown Comments No Sex and Gender Information Value Date Recorded Sex Assigned at Not on file Legal Sex Female 11:47 AM EDT Gender Identity Not on file Sexual Orientation Not on file documented as of this encounter Plan of Treatment Not on file documented as of this encounter Procedures Procedure Name Priority Date/Time Associated Diagnosis Comments MULTIPLE LABS Routine 02/12/2024 3:28 PM EDT XR CHEST 1 VW Routine 02/12/2024 3:27 PM EDT documented in this encounter Results * Multiple labs (02/12/2024 3:28 PM EDT) us Scanning Provider External PA IMAGING Final Result MANUALLY TRANSCRIBED RESULTS * X-ray chest 1 view (02/12/2024 3:27 PM EDT) Anatomical Region Laterality Modality Body, Chest N/A Computed Radiogr aphy us Scanning Provider External IMG DIAGNOSTIC IMAGIN G ORDERABLES Final Result documented in this encounter Visit Diagnoses Not on filedocumented in this encounter Care Teams Pyrotechnic Assembler Relationship Specialty Start Date End Date Chaka Gallardo MD [address] [place] [address] PCP - General Family Medicine 03/27/18 documented as of this encounter
--- OUTSIDE RECORDS SUMMARY | 2025-01-15 16:28 | XMS_ITS | Patient Health Record ---
Author Organization [facility] Address [address] [place] [address] Care Team Providers Care Manager Of Sales Name Role Phone Sami WALLS, Chaka Primary Care Provider Adrian brown Niall García Unavailable [phone] Allergies Allergen (clinical drug ingredient) Drug/Non Drug Allergy documented on EMR Reaction Allergy Type Onset Date Status BEE STING KIT (uncoded) swelling of throat Allergy Active Reason For Referral No Information Medications Medication SIG (Take, Route, Frequency, Duration) Notes Start Date End Date Status albuterol as needed Active PROzac Active [place] as needed for pain A ctive Social History Tobacco Use: Social History Observation Description Date Details (start date - stop date) Current Smoker NA - NA Smoking History Question Answer Notes Smoking Status Current Smoker Problems Problem Type SNOMED Code ICD Code Onset Dates Problem Status W/U Status Risk Notes Problem Epicondylitis , lateral, right (M77.11) Active confirmed Problem [id number] 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 [address] [place] [address] [phone] Ketty White Self - patient is the insured 5 [place] [address] [place] [address] [id number] Ketty White Self - patient is the insured Medical (General) History Medical History History ICD Code Respiratory problems: Yes Cancer Type Yes-female Depression: Yes Anxiety: Yes Sleep apnea: Yes CPAP Machine: Yes Do you use the CPAP machine? Yes Surgical History Surgery Date(Month/Year) vuluectomy 11/2015 hysterectomy 01/2016 right elbow 2014
--- OUTSIDE RECORDS SUMMARY | 2025-01-15 16:28 | XMS_ITS | Encounter Summary ---
Author Organization [employer] [facility] [employer] Address [id number] [address] [place] [address] Care Team Providers Care Paddle Dyeing Machine Operator Name Role Phone Chaka Gallardo MD Primary Care Provider +1- [phone] Encounter Details Date Type Department Care Team (Late st Contact Info) Description 12/04/2021 Orders Only [facility] [address] [place] [address] Dia Faust RN Preop testing (Primary Dx) Social History Tobacco Use Types Packs/Day Years [...] suspected to have Coronavirus/COVID-19? No / Unsure 12/04/2021 9:58 AM EDT documented as of this encounter Plan of Treatment Not on file documented as of this encounter Visit Diagnoses Diagnosis Preop testing- Primary Unspecified pre-operative examination documented in this encounter Care Teams Paddle Dyeing Machine Operator Relationship Specialty Start Date End Date Chaka Gallardo MD [address] [place] [address] PCP - General Family Medicine 03/27/18 documented as of this encounter
--- OUTSIDE RECORDS SUMMARY | 2025-01-15 16:28 | XMS_ITS | Referral Summary ---
Author Organization [facility] Address [address] [address] Care Team Providers Care Oil Heat Technician Name Role Phone Unavailable Primary Care Provider Unavailabl e Social History Tobacco Use Types Packs/Day Years Used Date Smoking Tobacco: Never Assessed [place] Safety & Environment Answer Date Rec orded [...] Orientation Not on file Plan of Treatment Not on file
--- OUTSIDE RECORDS SUMMARY | 2025-01-15 16:28 | XMS_ITS | Encounter Summary ---
Author Organization [employer] [facility] Address [id number] [address] [place] [address] Care Team Providers Care X Ray Equipment Servicer Name Role Phone Chaka Gallardo MD Primary Care Provider +1- [phone] Encounter Details Date Type Department Care Team (Late st Contact Info) Description 10/27/2024 Orders Only [facility] [address] [place] [address] Dalia Perry CMA Mixed hyperlipidemia; Chest pain, unspecified type Social History Tobacco Use Types Packs/Day Years [...] got money to buy more. Never True 10/30/2024 Within the past 12 months th e food we bought just didn't last and we didn't have money to get more. Never True 10/30/2024 Purpose - Life Answer Date Recorded Purpose [...] Procedure Name Priority Date/Time Associated Diagnosis Comments LIPID PROFILE Routine 10/26/2024 Mixed hyperlipidemia Chest pain, unspecified type documented in this encounter Results * Lipid profile (10/26/2024) External Cholesterol 154 SUNQUEST External Cholesterol:Hdl 3.3 SUNQUEST External Hdl Cholesterol 46 SUNQUEST External Ldl (Calc) 55 SUNQUEST External Triglycerides 266 SUNQUEST External Very Low Lipoprotein 53.2 SUNQUEST 10/26/2024 Valeria Yun PA-C LAB BLOOD ORDERABLES Final Result SUNQUEST documented in this encounter Visit Diagnoses Diagnosis Mixed hyperlipidemia Chest pain, unspecified type documented in this encounter Care Teams X Ray Equipment Servicer Relationship Specialty Start Date End Date Chaka Gallardo MD [address] [place] [address] PCP - General Family Medicine 03/27/18 documented as of this encounter
[2025-01-15 16:29] VITALS: BP 145/70; PULSE 69; TEMP 36.8; O2SAT 99; BMI 31.3
--- OUTSIDE RECORDS SUMMARY | 2025-01-15 16:29 | XMS_ITS | Clinical Summary ---
Author Organization [employer] Address [id number] [address] [place] [address] Care Team Providers Care Cat Cracker Operator Name Role Phone Chaka Gallardo MD Primary Care Provider +1- [phone] Allergies Active Allergy Reactions Criticality Noted Date Comments Bee Venom Protein (Honey Bee) 2017 Medications FLUoxetine (PROzac) 20 MG tablet 40 mg in am and 20 mg pm 7 Active VENTOLIN HFA 90 mcg/actuation inhalerIndicatio ns:Subacute sinusitis, unspecified location INHALE 2 PUFFS BY MOUTH EVERY 6 HOURS NEEDED FOR WHEEZING 18 Inhaler 9 Active acetaminophen (TYLENOL ARTHRITIS) 650 mg 8 hr tablet Take 1 tablet (650 mg total) by mouth in the morning. Active multivit with minerals/lutein (MULTIVITAMIN 50 PLUS ORAL) Take by mouth daily. Active black cohosh 540 mg capsule Take by mouth daily. Active BIOTIN ORAL Take 10,000 mg by mouth in the morning. Active cinnamon bark (CINNAMON ORAL) Take 2,000 mg by mouth in the morning. Active ibuprofen/diphen hydramine cit (IBUPROFEN PM ORAL) Take by mouth nightly. Active ubidecarenone/vi tamin E mixed (COQ10 SG 100 ORAL) Take 200 mg by mouth in the morning. Active nitroglycerin (NITROSTAT) 0.[address] 1 tablet (0.4 mg total) under the tongue every 5 (five) minutes as needed for chest pain. Active busPIRone (BUSPAR) 7.5 mg tablet Take 1 tablet (7.5 mg total) by mouth in the morning and at bedtime. Active isosorbide mononitrate (IMDUR) 30 mg 24 hr tablet Take 1 tablet (30 mg total) by mouth daily. 90 tablet 3 4 Active aspirin 81 mg Take 1 tablet (81 mg total) by mouth in the morning. Active ranolazine (RANEXA) 500 mg 12 hr tablet Take 1 tablet (500 mg total) by mouth in the morning and 1 tablet (500 mg total) before bedtime. 180 tablet 3 5 Active rosuvastatin (CRESTOR) 20 mg tabletIndication s:Mixed hyperlipidemia,C hest pain, unspecified type,Tobacco abuse TAKE 1 TABLET (20 MG TOTAL) BY MOUTH IN THE MORNING 90 tablet 3 5 Active Active Problems Problem Noted Date Diagnosed Date Microvascular angina 12/04/2021 Mixed hyperlipidemia 12/04/2021 Sinusitis 05/01/2018 S/P nasal septoplasty 04/18/2018 Fatigue 02/11/2018 Apnea 01/14/2018 Deviated septum 01/14/2018 Resolved Problems Problem Noted Date Diagnosed Date Resolved Date Subacute sinusitis 12/17/2017 8 Encounters Date Type Department Care Team Description 12/09/2024 Refill [facility] [address] [place] [phone] Valeria Yun PA-C Med Refill 10/30/2024 2:30 PM EDT Office Visit [facility] [address] [place] [address] Dustin Koch MD Mixed hyperlipidemia (Primary Dx); Chest pain, unspecified type; Microvascular angina ([facility]) 10/30/2024 Travel 10/29/2024 Telephone [facility] [address] [place] [address] Dalia Perry CMA 10/27/2024 Orders Only [facility] [address] [place] [address] Dalia Perry CMA Mixed hyperlipidemia; Chest pain, unspecified type from Last 3 Months Family History Medical History Relation Name Comments No Known Problems Father Diabetes Mother Hyperlipidemia Mother Hypertension Mother Relation Name Status Comments Father Mother Social History Tobacco Use Types Packs/Day Years Used Date Smoking Tobacco: Every Day Cigarettes Smokeless Tobacco: Never Tobacco Cessation:Ready to Q uit: Not Asked; Counseling Given: Not Answered Alcohol Use Standard Drinks/Week Comments Yes 0 [...] on file Sexual Orientation Not on file Last Filed Vital Signs Vital Sign Reading Time Taken Comments Blood Pressure 112/72 10/30/2024 2:27 PM EDT Pulse 78 10/30/2024 2:27 PM EDT Temperature 36.8 C (98.2 F) 04/10/2018 12:11 PM EDT Respiratory Rate 14 05/06/2023 2:38 PM EDT Oxygen Saturation 97% 10/30/2024 2:27 PM EDT Inhaled Oxygen Concentration - - Weight 91.6 kg (202 lb) 10/30/2024 2:27 PM EDT Height 172.7 cm (5' 8 ) 10/30/2024 2:27 PM EDT Body Mass Index 30.71 10/30/2024 2:27 PM EDT Plan of Treatment Health Maintenance Due Date Last Done Comments Tobacco Counseling 1968 Depression Screening 1980 Adult BMI Follow Up Plan 1986 DTaP,Tdap and Td Vaccines (1 - Tdap) 1987 Zoster (Shingles) Vaccine (1 of 2) 2018 Influenza Vaccine 04/12/2025 Adult BMI Screening 10/30/2025 10/30/2024 Tobacco Screening 10/30/2025 10/30/2024 Medical Devices Not on file Procedures Procedure Name Priority Date/Time Associated Diagnosis Comments POCT EKG Routine 10/30/2024 Mixed hyperlipidemia Chest pain, unspecified type LIPID PROFILE Routine 10/26/2024 Mixed hyperlipidemia Chest pain, unspecified type from Last 3 Months Results * POCT EKG (10/30/2024) 10/30/2024 us Dustin Koch MD ECG ORDERABLES Final Result MANUALLY TRANSCRIBED RESULTS * Lipid profile (10/26/2024) External Cholesterol 154 SUNQUEST External Cholesterol:Hdl 3.3 SUNQUEST External Hdl Cholesterol 46 SUNQUEST External Ldl (Calc) 55 SUNQUEST External Triglycerides 266 SUNQUEST External Very Low Lipoprotein 53.2 SUNQUEST 10/26/2024 us Valeria Yun PA-C LAB BLOOD ORDERABLES Final Result Performing Organization Address City[facility] Co de Phone Number SUNQUEST from Last 3 Months Insurance MEDICARE Care Teams Cat Cracker Operator Relationship Specialty Start Date End Date Chaka Gallardo MD [address] [place] [address] PCP - General Family Medicine 03/27/18
--- OUTSIDE RECORDS SUMMARY | 2025-01-15 16:29 | XMS_ITS | Clinical Summary ---
Author Organization [facility] Address [address] [place] [address] Care Team Providers Care Development Assistant Name Role Phone Unavailable Primary Care Provider Unavailabl e Social History Tobacco Use Types Packs/Day Years Used Date Smoking Tobacco: Never Assessed Comments Unknown Sex and Gender Information Value Date Recorded Sex Assigned at Not on file Legal Sex Female 6:58 PM EDT Gender Identity Not on file Sexual Orientation Not on file Plan of Treatment Not on file
--- OUTSIDE RECORDS SUMMARY | 2025-01-15 16:29 | XMS_ITS | Encounter Summary ---
Author Organization [employer] [facility] Address [facility] [id number] [address] [place] [address] Care Team Providers Care Computer Sciences Professor Name Role Phone Chaka Gallardo MD Primary Care Provider +1- [phone] Reason for Visit * Reason Comments Med Refill Encounter Details Date Type Department Care Team ([facility] st Contact Info) Description 09/09/2024 Refill [facility] [address] [place] [address] Leroy Herndon MD [address] [place] [address] Med Refill Social History Tobacco Use Types Packs/Day Years [...] on file documented as of this encounter Miscellaneous Notes * Telephone Encounter - Snow Palencia RN - 09/09/2024 12:32 AM EST No lipids in chart since 10/23/21. documented in this encounter Plan of Treatment Not on file documented as of this encounter Visit Diagnoses Diagnosis Mixed hyperlipidemia Chest pain, unspecified type Tobacco abuse Tobacco use disorder documented in this encounter Care Teams Computer Sciences Professor Relationship Specialty Start Date End Date Chaka Gallardo MD [address] [place] [address] PCP - General Family Medicine 03/27/18 documented as of this encounter
--- OUTSIDE RECORDS SUMMARY | 2025-01-15 16:29 | XMS_ITS | Clinical Summary ---
Author Organization [facility] 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 Social History Tobacco Use Types Packs/Day Years Used Date Smoking Tobacco: Every Day Cigarettes Smokeless Tobacco: Never Comments Unknown Sex and Gender Information Value Date Recorded Sex Assigned at Not on file Legal Sex Female 6:43 PM EST Gender Identity Not on file Sexual Orientation Not on file Last Filed Vital Signs Vital Sign Reading Time Taken Comments Blood Pressure 131/85 04/19/2019 11:38 AM EDT Pulse 79 04/19/2019 11:38 AM EDT Temperature 36.6 C (97.8 F) 04/19/2019 10:21 AM EDT Respiratory Rate 14 04/19/2019 11:38 AM EDT Oxygen Saturation 99% 04/19/2019 11:38 AM EDT Inhaled Oxygen Concentration - - Weight 93.4 kg (206 lb) 04/19/2019 10:21 AM EDT Height 172.7 cm (5' 8 ) 04/19/2019 10:21 AM EDT Body Mass Index 31.32 04/19/2019 10:21 AM EDT Plan of Treatment Not on file Insurance [employer] [address] [id number] MEDICARE [id number] [id number] Care Teams Mail Agent Relationship Specialty Start Date End Date Chaka Gallardo MD [address] [id number] PCP - General Family Medicine 04/19/19
--- OUTSIDE RECORDS SUMMARY | 2025-01-15 16:29 | XMS_ITS | Clinical Summary ---
Author Organization [facility] Address [address] [place] [address] Care Team Providers Care Upholstery Estimator Name Role Phone Chaka Gallardo MD Primary Care Provide r Allergies No known active allergies Medications traMADol (ULTRAM) 50 mg tablet Take 50 mg by mouth as needed. 12/02/2015 Active FLUoxetine HCl (PROZAC) 40 mg capsule Take 40 mg by mouth once daily. 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 Family History Medical History Relation Comments Cancer Mother Relation Status Comments Mother Social History Tobacco Use Types Packs/Day Years Used Date Smoking Tobacco: Every Day Cigarettes Smokeless Tobacco: Never Comments:in process of quitt ing Alcohol Use Standard Drinks/Week Comments Yes 0 (1 standard drink = 0.6 oz pur e alcohol) seldom Comments No Sex and Gender Information Value Date Recorded Sex Assigned at Not on file Legal Sex Female 11:50 AM EST Gender Identity Not on file Sexual Orientation Not on file Last Filed Vital Signs Vital Sign Reading Time Taken Comments Blood Pressure 134/77 06/18/2017 2:34 PM EST Pulse 93 06/18/2017 2:34 PM EST Temperature 37.2 C (98.9 F) 06/18/2017 2:34 PM EST Respiratory Rate 16 06/18/2017 2:34 PM EST Oxygen Saturation 98% 11/04/2015 1:30 PM EDT Inhaled Oxygen Concentration - - Weight 91.8 kg (202 lb 6.4 oz) 06/18/2017 2:34 P M EST Height 168.9 cm (5' 6.5 ) 06/18/2017 2:34 PM EST Body Mass Index 32.18 06/18/2017 2:34 PM EST Plan of Treatment Health Maintenance Due Date Last Done Comments Anxiety Screening 1986 Depression Screening 1986 HIV Screening 1986 Hepatitis C Screening 1986 DTaP,Tdap,Td Vaccine (1 - Tdap) 1987 Hepatitis B Vaccine (1 of 3 - 19+ 3-dose series) 05/20 Cervical Cancer Screening [address] Colonography 2013 Cologuard (FIT-DNA) 2013 Colonoscopy 2013 Colorectal Cancer Screening 2013 Fecal Occult Blood 2013 Lipid Screening 2013 Sigmoidoscopy 2013 Pneumococcal Vaccine: 50+ (1 of 1 - PCV) 2018 Shingrix Vaccine (1 of 2) 2018 Diabetes Screening 10/24/2018 10/25/2015 Covid-19 Vaccine (1 - season) 2024 Influenza Vaccine (Season Ended) 2025 Procedures Procedure Name Priority Date/Time Associated Diagnosis Comments BASIC METABOLIC PANEL Routine 10/25/2015 3:21 PM EDT Preoperative examination from Last 3 Months or Most Recently Relevant to Health Maintenance Results * (ABNORMAL) BASIC METABOLIC PNL (10/25/2015 3:21 PM EDT) Glucose 77 65 - 100 mg/dL 10/26/2015 5:07 AM EDT [facility] BUN 14 8 - 25 mg/dL 10/26/2015 5:07 AM EDT [facility] Creatinine 0.76 0.70 - 1.40 mg/dL 10/26/2015 5:07 AM EDT [facility] Sodium 139 132 - 148 mmol/L 10/26/2015 5:07 AM EDT [facility] Potassium 4.4 3.5 - 5.0 mmol/L 10/26/2015 5:07 AM EDT [facility] Chloride 105 98 - 110 mmol/L 10/26/2015 5:07 AM EDT [facility] CO2 21(L) 23 - 32 mmol/L 10/26/2015 5:07 AM EDT [facility] Anion Gap 13 0 - 15 mmol/L 10/26/2015 5:07 AM EDT [facility] Calcium 9.8 8.5 - 10.5 mg/dL 10/26/2015 5:07 AM EDT [facility] eGFR- >60 10/26/2015 5:07 AM EDT [facility] eGFR-All Other Races >60 . 10/26/2015 5:07 AM EDT [facility] Comment: eGFR (Estimated GFR) Units of measure: mL/min/1.73 meters squared eGFR is derived from the reexpressed MDRD Study equation using the following parameters: serum creatinine, age, gender and race. The creatinine assay has been calibrated to be traceable to IDMS. An eGFR <60 mL/min/1.73m2 for >3 months is consistent with chronic kidney disease. Refer to KDOQI guidelines for clinical interpretation. In patients with unstable renal function, e.g. those with acute kidney injury, the eGFR may not accurately reflect actual GFR. Blood specimen (specimen) BLOOD SPECIMEN / Unknown 10/25/2015 3:21 PM EDT 10/25/2015 3:23 PM EDT Osbaldo Pinto MD LABORATORY Final Result [facility] [address] [place] [address] from Last 3 Months or Most Recently Relevant to Health Maintenance Insurance MEDICARE [id number] MEDICAID [place] Care Teams Upholstery Estimator Relationship Specialty Start Date End Date Chaka Gallardo MD [address] [place] [address] PCP - General Family Medicine 10/25/15
[2025-01-15 16:33] VITALS: BP 145/70; O2SAT 97
--- OUTSIDE RECORDS SUMMARY | 2025-01-15 16:33 | XMS_ITS | CCD ---
Author Organization [facility] Care Team Providers Care Snag Grinder Name Role Phone KATIE PINTO Unavailable Unavailable KATIE PINTO Unavailable Unavailable CHANA POLO Attending Unavailab le BEIDELMARKY LIN A Primary Care Unavailable Beidelmarky, Lin A Primary Care Provider [facility] [place]ARTINE[place] Primary Care Unavailable SHANTA ., ANA Admitting Unavailable SHANTA ., ANA Attending Unavailable SHANTA ., ANA Consulting Unavailable [facility] [place] Primary Care Unavailable DANNIE ., DR RIGGS Admitting Unavailable HOY ., DR RIGGS Attending Unavailable HOY ., DR RIGGS Consulting Unavailable Edenilson, Amina Consulting Unavailable ZIEBER, DR NIALL Rubio Consulting Unavailable PAY ., DR HERRERA Consulting Unavailable GRECHNY ., DONIS RUIZ Consulting Unavailky Weller MD, Lin Moscoso Primary Care Provider DUSTIN KOCH Attending Unavailable BEIDELCONCEPCIONIES, LIN A Referring Unavailable BEIDELSCHIES, LIN A Primary Care Unavailable DUSTIN KOCH Attending Unavailable BEJACQUES LIN A Referring Unavailable BEIDELMARKY, LIN A Primary Care Unavailable Sami WALLS, Lin Moscoso Primary Care Provider Allergies Allergy Classification Reported Allergen(s) Allergy Type Date of Onset Reaction(s) Facility (1 source) bee venom Drug allergy (disorder) 5 [facility] Repository (8 sources) Bee Venom Protein (Honey Bee); 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: [BEE VENOM PROTEIN (HONEY BEE)] Propensity to adverse reactions to drug 8 [facility] Medications Current Medications Medication Drug Class(es) Dates Sig (Normalized) Sig (Original) 8 hr acetaminophen 650 mg extended release oral tablet (7 sources) take 1 tablet by mouth every [...] days. 10 tablet 0 04/19/2019 04/22/2019 Active [id number] 200 actuat albuterol 0.09 mg/actuat metered dose inhaler (7 sources) beta2-Adrenergic Agonist Start: 02-18-2019 take 2 puff(s) by mouth every six hours as needed for wheezing VENTOLIN HFA 90 mcg/actuation inhaler Indications: Subacute sinusitis, unspecified location INHALE 2 PUFFS BY MOUTH EVERY 6 HOURS NEEDED FOR WHEEZING 18 Inhaler 02/18/2019 Active aspirin 81 mg delayed release oral tablet (8 sources) Platelet Aggregation Inhibitor, Nonsteroidal Anti-inflammatory Drug take 1 tablet by mouth in the morning aspirin 81 mg Take 1 tablet (81 mg total) by mouth in the morning. Active End: 02-11-2024 take 1 tablet by mouth in the morning aspirin 325 mg tablet Take 1 tablet (325 mg total) by mouth in the morning. 02/11/2024 Discontinued (Dose adjustment) Biotin (7 sources) take 47280 mg by dorene th in the morning BIOTIN ORAL Take 10,000 mg by mouth in the morning. Active take 1000 mg by mouth in the mor jase BIOTIN ORAL Take 1,000 mg by mouth in the morning. Active black cohosh extract 540 mg oral capsule (7 sources) take 1 capsule by mouth once daily black cohosh 540 mg capsule Take by mouth daily. Active busPIRone hydrochloride 7.5 mg oral tablet (5 sources) take 1 tablet by mouth at bedtime busPIRone (BUSPAR) 7.5 mg tablet Take 1 tablet (7.5 mg total) by mouth in the morning and at bedtime. Active Cinnamon Bark (7 sources) take 2000 mg by mouth in [...] 04/19/2019 Active FLUoxetine 20 mg oral tablet (8 sources) Serotonin Reuptake Inhibitor Start: 12-25-2016 FLUoxetine (PROzac) 20 MG tablet 40 mg in am and 20 mg pm 12/25/2016 Active take 2 capsules by mouth once da rayne FLUoxetine (PROZAC) 20 MG capsule Take 40 mg by mouth daily 0 Active ibuprofen/diphenhydramine ci t (IBUPROFEN PM ORAL) (7 sources) ibuprofen/diphen hydramine cit (IBUPROFEN PM ORAL) Take by mouth nightly. Active 24 hr isosorbide mononitrate 30 mg extended release oral tablet (5 sources) Nitrate Vasodilator Sta rt: 4 take 1 tablet by mouth once daily isosorbide mononitrate (IMDUR) 30 mg 24 hr tablet Take 1 tablet (30 mg total) by mouth daily. 90 tablet 3 02/11/2024 Active multivit with minerals/lutei n (MULTIVITAMIN 50 PLUS ORAL) (7 sources) multivit with minerals/lutein (MULTIVITAMIN 50 PLUS ORAL) Take by mouth daily. Active nitroglycerin 0.4 mg sublingual tablet (7 sources) Nitrate Vasodilator nitroglycerin (NITRO STAT) 0.[address] 1 tablet (0.4 mg total) under the tongue every 5 (five) minutes as needed for chest pain. Active 12 hr ranolazine 500 mg extended release oral tablet (2 sources) Anti-anginal Sta rt: 5 take 1 tablet by mouth every twelve hours in the morning, then take 1 tablet by mouth at bedtime ranolazine (RANEXA) 500 mg 12 hr tablet Take 1 tablet (500 mg total) by mouth in the morning and 1 tablet (500 mg total) before bedtime. 180 tablet 3 10/30/2024 Active rosuvastatin calcium 20 mg oral tablet (9 sources) HMG-CoA Reductase Inhibitor Sta rt: 5 take 1 tablet by mouth in the morning rosuvastatin (CRESTOR) 20 mg tablet Indications: Mixed hyperlipidemia , Chest pain, unspecified type , Tobacco abuse TAKE 1 TABLET (20 MG TOTAL) BY MOUTH IN THE MORNING 90 tablet 3 12/11/2024 Active Start: 07-02-2023 End: 12-11-2024 take 1 tablet by mouth in the morning rosuvastatin (CRESTOR) 20 mg tablet Indications: Mixed hyperlipidemia , Chest pain, unspecified type , Tobacco abuse Take 1 tablet (20 mg total) by mouth in the morning. 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] Onset: 12-04-2021 02-11-2024 Chronic Disorders of lipid metabolism (13 sources) Pure hypercholesterolem ia, unspecified; 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: [Mixed hyperlipidemia] Onset: 12-04-2021 09-14-2024 Chronic Nonspecific chest pain (11 sources) Chest pain, unspecified; 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: [Other chest pain] Onset: 12-04-2021 Episodic Other aftercare (1 source) 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; 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: [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 PRESS OPERATOR CURRENT USE OF ASPIRIN] Onset: 12-04-2022 Episodic Other aftercare (1 source) Other mcc (current) drug therapy; 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: [OTH PRIMER PRESS OPERATOR CURRENT DRUG THERAPY] Onset: 12-04-2022 Episodic Other lower respiratory disease (1 source) Shortness of breath Onset: 10-30-2024 Episodic Other nervous system disorders (2 sources) Ulnar neuropathy; 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] Onset: 04-19-2019 04-19-2019 Chronic Other upper respiratory infections (7 sources) Sinusitis; 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: [Chronic sinusitis, unspecified] Onset: 05-01-2018 05-01-2018 Chronic Residual codes; unclassified (2 sources) Tobacco user; 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: [Tobacco use] 09-14-2024 Episodic [...] Documented Da te Episodic/Chronic Malaise and fatigue (7 sources) Fatigue; 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: [Other fatigue] Onset: 02-11-2018 [...] Onset: 01-15-2022 Episodic Other lower respiratory disease (7 sources) Apnea; 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: [Apnea, not elsewhere classified] Onset: 01-14-2018 01-14-2018 Episodic Other skin disorders (1 source) Generalized hyperhidrosis; 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: [GENERALIZED HYPERHIDROSIS] Onset: 01-15-2022 Episodic Other upper respiratory disease (7 sources) Deviated nasal septum; 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: [Deviated nasal septum] Onset: 01-14-2018 01-14-2018 Episodic Other upper respiratory infections (7 sources) Sinusitis; 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: [Acute sinusitis, unspecified] Onset: 12-17-2017 Resolved: 01-14-2018 01-14-2018 Episodic Results Test Name Value Interpretation Reference Range Facility POCT EKGon 10-30-2024 [facility] T4 LABCORPon 01-12-2022 T4 [Mass/Vol] 5.4 ug/dL Normal 4.5-12.0 [facility] Comment on above: Performed By: #### T 4LC ####[facility] [address] [place] [address]Dr. Agnes Frost BNPon 01-11-2022 Natriuretic peptide B (Bld) [Mass/Vol] 17.0 pg/mL Normal <=900.0 [facility] Comment on above: Performed By: #### B CMM INSPECTOR, CMP #### [facility] [address] [address] [address] Agnes Frost CBC AUTO DIFFon 01-11-2022 BASO # 0.1 103/ul Normal 0.0-0.1 [facility] Comment on above: Performed By: #### C BC ####[facility] [address] [place] [address]Dr. Agnes Frost Basophils/100 WBC (Bld) 1.0 % Normal 0.2-2.0 [facility] Comment on above: Performed By: #### C BC ####[facility] [address] [place] [address]Dr. Agnes Frost EO # 0.4 103/ul Normal 0.0-0.7 [facility] Comment on above: Performed By: #### C BC ####[facility] [address] [place] [address]Dr. Agnes Frost Eosinophils/100 WBC (Bld) 4.2 % Normal 0.9-7.0 [facility] Comment on above: Performed By: #### C BC ####[facility] [address] [place] [address]Dr. Agnes Frost Erythrocyte distribution width (RBC) [Ratio] 14.0 % Normal 11.0-15.0 [facility] Comment on above: Performed By: #### C BC ####[facility] [address] [place] [address]Dr. Agnes Frost Hematocrit (Bld) [Volume fraction] 39.2 % Normal 36.0-48.0 [facility] Comment on above: Performed By: #### C BC ####[facility] [address] [place], [place] [address]Dr. Agnes Frost Hemoglobin (Bld) [Mass/Vol] 12.5 g/dL Normal 12.0-16.0 [facility] Comment on above: Performed By: #### C BC ####[facility] [address] [place], [place] [address]Dr. Agnes Frost IG # 0.02 10e3/ul Normal 0.00-0.03 [facility] Comment on above: Performed By: #### C BC ####[facility] [address] [place], [place] [address]Dr. Agnes Frost IG % 0.2 % Normal 0.0-0.5 [facility] Comment on above: Performed By: #### C BC ####[facility] [address] [place], [place] [address]Dr. Agnes Frost LYMPH # 4.3 103/ul Critically high 1.2-3.8 [facility] Comment on above: Performed By: #### C BC ####[facility] [address] [place], [place] [address]Dr. Agnes Frost Lymphocytes/100 WBC (Bld) 46.6 % Normal 20.5-60.0 [facility] Comment on above: Performed By: #### C BC ####[facility] [address] [place], [place] [address]Dr. Agnes Frost MANUAL DIFF REQ NO Normal [facility] Comment on above: Performed By: #### C BC ####[facility] [address] [place] [address]Dr. Agnes Frost MCH (RBC) [Entitic mass] 29.1 pg Normal 26.7-34.0 [facility] Comment on above: Performed By: #### C BC ####[facility] [address] [place] [address]Dr. Agnes Frost MCHC (RBC) [Mass/Vol] 31.9 g/dL Normal 29.9-35.2 [facility] Comment on above: Performed By: #### C BC ####[facility] [address] [place] [address]DrOchoa Frost MCV (RBC) [Entitic vol] 91.4 fL Normal 81.0-99.0 [facility] Comment on above: Performed By: #### C BC ####[facility] [address] [place], [place] [address]DrOchoa Frost MONO # 0.8 103/ul Normal 0.3-0.8 [facility] Comment on above: Performed By: #### C BC ####[facility] [address] [place], [place] [address]DrOchoa Frost Monocytes/100 WBC (Bld) 8.1 % Normal 1.7-12.0 [facility] Comment on above: Performed By: #### C BC ####[facility] [address] [place], [place] [address]DrOchoa Frost NEUT # 3.7 103/ul Normal 1.4-6.5 [facility] Comment on above: Performed By: #### C BC ####[facility] [address] [place], [place] [address]DrOchoa Frost Neutrophils/100 WBC (Bld) 39.9 % Critically low 43.0-75.0 [facility] Comment on above: Performed By: #### C BC ####[facility] [address] [place], [place] [address]DrOchoa Frost Platelet mean volume (Bld) [Entitic vol] 9.2 fL Critically low 9.5-13.5 [facility] Comment on above: Performed By: #### C BC ####[facility] [address] [place], [place] [address]Zr. Agnes Frost PLT 366 103/ul Normal 150-450 [facility] Comment on above: Performed By: #### C BC ####[facility] [address] [place], [place] [address]Ua. Agnes Frost RBC 4.29 106/ul Normal 4.20-5.40 [facility] Comment on above: Performed By: #### C BC ####[facility] [address] [place], [place] [address]Zn. Agnes Frost WBC 9.3 103/ul Normal 4.0-11.0 [facility] Comment on above: Performed By: #### C BC ####[facility] [address] [place], [place] [address]Hs. Agnes Frost ECHOCARDIO M/2D COMPLETEon 0 01-11-2022 ECHOCARDIO M/2D COMPLETE Patient: KETTY ROCA Exam Date: 01/11/2022 : 1970 Gender:F Ordering : DR ONEIL PANDEY . Admission #: [id number] Family : DR AMPARO WELLER Order #: [id number] CLICK HERE TO VIEW EXAM ECHOCARDIOGRAM REPORT [...] Area(A4C): 18.90 cm2 Left Atrium Systolic Volume(A2C): 99224 mm3 Left Atrium Systolic Volume(A4C): 64404 mm3 Mitral Valve MV E to A [...] Vides M.D. on 01/11/2022 at 19:49 Normal [facility] NM STRESS/REST MULTIon 01-11 NM STRESS/REST MULTI Patient: KETTY ORCA Exam Date: 01/11/2022 : 1970 Gender:F Ordering : DR ONEIL PANDEY . Admission #: [id number] Family : Order #: [id number] CLICK HERE TO VIEW EXAM RADIOLOGY REPORT [...] M.D. on 01/11/2022 at 15:59 Normal [facility] PROF 14(COMP METB)on 022 Albumin [Mass/Vol] 3.5 g/dL Normal 3.4-5.0 [facility] Comment on above: Performed By: #### B CMM INSPECTOR, CMP #### [facility] [address] [place] [address] Dr. Agnes Frost Albumin/Globulin [Mass ratio] 0.9 {ratio} Normal [facility] Comment on above: Performed By: #### B CMM INSPECTOR, CMP #### [facility] [address] [address] [address] Agnes Frost ALP [Catalytic activity/Vol] 100 U/L Normal 46-116 [facility] Comment on above: Performed By: #### B CMM INSPECTOR, CMP #### [facility] [address] [address] [address] Agnes Frost ALT [Catalytic activity/Vol] 31 U/L Normal 14-59 [facility] Comment on above: Performed By: #### B CMM INSPECTOR, CMP #### [facility] [address] [address] [address] Agnes Frost Anion gap [Moles/Vol] 10.1 mmol/L Normal [facility] Comment on above: Performed By: #### B CMM INSPECTOR, CMP #### [facility] [address] [place] [address] Dr. Agnes Frost AST [Catalytic activity/Vol] 19 U/L Normal 15-37 [facility] Comment on above: Performed By: #### B CMM INSPECTOR, CMP #### [facility] [address] [address] [address] Agnes Frost Bilirubin [Mass/Vol] 0.3 mg/dL Normal 0.2-1.0 [facility] Comment on above: Performed By: #### B CMM INSPECTOR, CMP #### [facility] [address] [place] [address] Dr. Agnes Frost Calcium [Mass/Vol] 9.1 mg/dL Normal 8.5-10.1 [facility] Comment on above: Performed By: #### B CMM INSPECTOR, CMP #### [facility] [address] [place] [address] Dr. Agnes Frost Chloride [Moles/Vol] 105 mmol/L Normal 98-107 [facility] Comment on above: Performed By: #### B CMM INSPECTOR, CMP #### [facility] [address] [address] [address] Agnes Frost CO2 [Moles/Vol] 28.2 mmol/L Normal 21.0-32.0 [facility] Comment on above: Performed By: #### B CMM INSPECTOR, CMP #### [facility] [address] [place] [address] Dr. Agnes Frost Creatinine [Mass/Vol] 0.76 mg/dL Normal 0.55-1.02 [facility] Comment on above: Performed By: #### B CMM INSPECTOR, CMP #### [facility] [address] [place] [address] Dr. Agnes Frost EGFR-AF IRISH >60 Normal >=60 [facility] Comment on above: Performed By: #### B CMM INSPECTOR, CMP #### [facility] [address] [place] [address] Dr. Agnes Frost EGFR-NON AF IRISH >60 Normal >=60 [facility] Comment on above: Performed By: #### B CMM INSPECTOR, CMP #### [facility] [address] [place] [address] Dr. Agnes Frost Globulin (S) [Mass/Vol] 3.8 g/dL Normal [facility] Comment on above: Performed By: #### B CMM INSPECTOR, CMP #### [facility] [address] [place] [address] Dr. Agnes Frost Glucose [Mass/Vol] 105 mg/dL Normal 74-106 [facility] Comment on above: Performed By: #### B CMM INSPECTOR, CMP #### [facility] [address] [place] [address] Dr. Agnes Frost Potassium [Moles/Vol] 4.3 mmol/L Normal 3.5-5.1 [facility] Comment on above: Performed By: #### B CMM INSPECTOR, CMP #### [facility] [address] [place] [address] Dr. Agnes Frost Protein [Mass/Vol] 7.3 g/dL Normal 6.4-8.2 [facility] Comment on above: Performed By: #### B CMM INSPECTOR, CMP #### [facility] [address] [place] [address] Dr. Agnes Frost Sodium [Moles/Vol] 139 mmol/L Normal 136-145 [facility] Comment on above: Performed By: #### B CMM INSPECTOR, CMP #### [facility] [address] [address] [address] Agnes Frost Urea nitrogen [Mass/Vol] 14.0 mg/dL Normal 7.0-18.0 [facility] Comment on above: Performed By: #### B CMM INSPECTOR, CMP #### [facility] [address] [address] [address] Agnes Frost Urea nitrogen/Creatinin e [Mass ratio] 18.4 mg/mg Normal [facility] Comment on above: Performed By: #### B CMM INSPECTOR, CMP #### [facility] [address] [address] [address] Agnes Frost TSHon 01-11-2022 TSH 2.224 uIU/mL Normal 0.358-3.740 [facility] Comment on above: Performed By: #### T SH ####[facility] [address] [place], [place] [address]DrOchoa Frost TSH RANGE SEE BELOW Normal [facility] Comment on above: Result Comment: <0.3 4 UIU/ml HYPERTHYROID 0.34-5.60 UIU/ml EUTHYROID >5.60 UIU/ml HYPOTHYROID Performed By: #### T SH ####[facility] [address] [place], [place] [address]DrOchoa Frost BNPon 01-10-2022 Natriuretic peptide B (Bld) [Mass/Vol] 17.0 pg/mL Normal <=900.0 [facility] Comment on above: Performed By: #### C MP, LIPA, BNP, HSTROPN ####[facility] [address] [place] [address]DrOchoa Frost CARDIAC KORY 3-6on 2 CK [Catalytic activity/Vol] 192 U/L Normal 26-192 [facility] Comment on above: Performed By: #### C MREP ####[facility] [address] [place] [address]DrOchoa Frost CK.MB [Mass/Vol] 2.88 ng/mL Normal <=3.60 [facility] Comment on above: Performed By: #### C MREP ####[facility] [address] [place], [place] [address]Dr. Agnes Frost HSTROP 4.7 pg/mL Normal 4.0-51.3 [facility] Comment on above: Result Comment: CUT- OFF POINTS HAVE BEEN ESTABLISHED BASED ON THE FOURTH UNIVERSAL DEFINITIONS OF MYOCARDIAL INFARCTION. THE UPPER REFERENCE LIMIT (URL) OF TROPONIN, DEFINED THE 99TH PERCENTILE OF cTnI DISTRIBUTION IN A REFERENCE POPULATION, HAS BEEN CONFIRMED THE DECISION THRESHOLD FOR AK DIAGNOSIS. Performed By: #### C MREP ####[facility] [address] [place] [id number]. Agnes Frost CK [Catalytic activity/Vol] 213 U/L Critically high 26-192 [facility] Comment on above: Performed By: #### C MREP #### [facility] [address] [address] [address] Agnes Frost CK.MB [Mass/Vol] 3.29 ng/mL Normal <=3.60 [facility] Comment on above: Performed By: #### C MREP #### [facility] [address] [address] [address] Agnes Frost HSTROP 4.4 pg/mL Normal 4.0-51.3 [facility] Comment on above: Result Comment: CUT- OFF POINTS HAVE BEEN ESTABLISHED BASED ON THE FOURTH UNIVERSAL DEFINITIONS OF MYOCARDIAL INFARCTION. THE UPPER REFERENCE LIMIT (URL) OF TROPONIN, DEFINED THE 99TH PERCENTILE OF cTnI DISTRIBUTION IN A REFERENCE POPULATION, HAS BEEN CONFIRMED THE DECISION THRESHOLD FOR AK DIAGNOSIS. Performed By: #### C MREP #### [facility] [address] [address] [address] Agnes Frost CBC AUTO DIFFon 01-10-2022 BASO # 0.1 103/ul Normal 0.0-0.1 [facility] Comment on above: Performed By: #### C BC #### [facility] [address] [address] [address] Agnes Frost Basophils/100 WBC (Bld) 0.8 % Normal 0.2-2.0 [facility] Comment on above: Performed By: #### C BC #### [facility] [address] [place] [address] Dr. Agnes Frost EO # 0.3 103/ul Normal 0.0-0.7 [facility] Comment on above: Performed By: #### C BC #### [facility] [address] [place] [address] Dr. Agnes Frost Eosinophils/100 WBC (Bld) 3.1 % Normal 0.9-7.0 [facility] Comment on above: Performed By: #### C BC #### [facility] [address] [place] [address] Dr. Agnes Frost Erythrocyte distribution width (RBC) [Ratio] 13.9 % Normal 11.0-15.0 [facility] Comment on above: Performed By: #### C BC #### [facility] [address] [place] [address] Dr. Agnes Frost Hematocrit (Bld) [Volume fraction] 38.8 % Normal 36.0-48.0 [facility] Comment on above: Performed By: #### C BC #### [facility] [address] [place] [address] Dr. Agnes Frost Hemoglobin (Bld) [Mass/Vol] 12.5 g/dL Normal 12.0-16.0 [facility] Comment on above: Performed By: #### C BC #### [facility] [address] [place] [address] Dr. Agnes Frost IG # 0.03 10e3/ul Normal 0.00-0.03 [facility] Comment on above: Performed By: #### C BC #### [facility] [address] [place] [address] Dr. Agnes Frost IG % 0.3 % Normal 0.0-0.5 [facility] Comment on above: Performed By: #### C BC #### [facility] [address] [place] [address] Dr. Agnes Frost LYMPH # 4.3 103/ul Critically high 1.2-3.8 [facility] Comment on above: Performed By: #### C BC #### [facility] [address] [place] [address] Dr. Agnes Frost Lymphocytes/100 WBC (Bld) 39.5 % Normal 20.5-60.0 [facility] Comment on above: Performed By: #### C BC #### [facility] [address] [place] [address] Dr. Agnes Frost MANUAL DIFF REQ NO Normal [facility] Comment on above: Performed By: #### C BC #### [facility] [address] [place] [address] Dr. Agnes Frost MCH (RBC) [Entitic mass] 29.1 pg Normal 26.7-34.0 [facility] Comment on above: Performed By: #### C BC #### [facility] [address] [place] [address] Dr. Agnes Frost MCHC (RBC) [Mass/Vol] 32.2 g/dL Normal 29.9-35.2 [facility] Comment on above: Performed By: #### C BC #### [facility] [address] [place] [address] Dr. Agnes Frost MCV (RBC) [Entitic vol] 90.4 fL Normal 81.0-99.0 [facility] Comment on above: Performed By: #### C BC #### [facility] [address] [place] [address] Dr. Agnes Frost MONO # 0.7 103/ul Normal 0.3-0.8 [facility] Comment on above: Performed By: #### C BC #### [facility] [address] [place] [address] Dr. Agnes Frost Monocytes/100 WBC (Bld) 6.8 % Normal 1.7-12.0 [facility] Comment on above: Performed By: #### C BC #### [facility] [address] [place] [address] Dr. Agnes Frost NEUT # 5.3 103/ul Normal 1.4-6.5 [facility] Comment on above: Performed By: #### C BC #### [facility] [address] [place] [address] Dr. Agnes Frost Neutrophils/100 WBC (Bld) 49.5 % Normal 43.0-75.0 [facility] Comment on above: Performed By: #### C BC #### [facility] [address] [place] [address] Dr. Agnes Frost Platelet mean volume (Bld) [Entitic vol] 9.2 fL Critically low 9.5-13.5 [facility] [facility] Comment on above: Performed By: #### C BC #### [facility] [address] [place] [address] Dr. Agnes Frost PLT 443 103/ul Normal 150-450 [facility] Comment on above: Performed By: #### C BC #### [facility] [address] [place] [address] Dr. Agnes Frost RBC 4.29 106/ul Normal 4.20-5.40 [facility] Comment on above: Performed By: #### C BC #### [facility] [address] [place] [address] Dr. Agnes Frost WBC 10.8 103/ul Normal 4.0-11.0 [facility] Comment on above: Performed By: #### C BC #### [facility] [address] [place] [address] Dr. Agnes Frost Covid-19 PCR [facility]on SARS-CoV-2 (COVID-19) RNA PHILOMENA+probe Ql (Unsp spec) Not detected Normal NOT DETECTED [facility] Comment on above: Result Comment: When [...] for this test is supported by the [place] of Health and Human Service's declaration that [...] longer be used). Performed By: #### [facility] ####[facility] [address] [place] [address]Dr. Agnes Frost ER URINE PROFILEon 2 Bilirubin Ql (U) Negative Normal NEGATIVE [facility] Comment on above: Performed By: #### E RUR #### [facility] [address] [place] [address] Dr. Agnes Frost Clarity (U) CLEAR Normal CLEAR [facility] Comment on above: Performed By: #### E RUR #### [facility] [address] [place] [address] Dr. Agnes Frost Color (U) LT. YELLOW Normal YELLOW [facility] Comment on above: Performed By: #### E RUR #### [facility] [address] [place] [address] Dr. Agnes Frost ERUAHD A micrscopic examination will be performed if indicated. Normal [facility] Comment on above: Performed By: #### E RUR #### [facility] [address] [place] [address] Dr. Agnes Frost Glucose Ql (U) Negative Normal NEGATIVE [facility] Comment on above: Performed By: #### E RUR #### [facility] [address] [place] [address] Dr. Agnes Frost Hemoglobin Ql (U) Negative Normal NEGATIVE [facility] Comment on above: Performed By: #### E RUR #### [facility] [address] [place] [address] Dr. Agnes Frost Ketones Ql (U) Negative Normal NEGATIVE [facility] Comment on above: Performed By: #### E RUR #### [facility] [address] [place] [address] Dr. Agnes Frost LEUKOCYTES Negative Normal NEGATIVE [facility] Comment on above: Performed By: #### E RUR #### [facility] [address] [place] [address] Dr. Agnes Frost Nitrite Ql (U) Negative Normal NEGATIVE [facility] Comment on above: Performed By: #### E RUR #### [facility] [address] [place] [address] Dr. Agnes Frost pH (U) 5.5 [pH] Normal 5-9 [facility] Comment on above: Performed By: #### E RUR #### [facility] [address] [place] [address] Dr. Agnes Frost SPEC GRAVITY <=1.005 Abnormal 1.005-<=1.025 [facility] Comment on above: Performed By: #### E RUR #### [facility] [address] [place] [address] Dr. Agnes Frost UA PROTEIN Negative Normal NEGATIVE/ TRACE [facility] Comment on above: Performed By: #### E RUR #### [facility] [address] [place] [address] Dr. Agnes Frost UR MICRO IND NOT INDICATED Normal [facility] Comment on above: Performed By: #### E RUR #### [facility] [address] [place] [address] Dr. Agnes Frost Urobilinogen Qn (U) 0.2 {Anette'U}/dL Normal 0.2 - 1.0 [facility] Comment on above: Performed By: #### E RUR #### [facility] [address] [place] [address] Dr. Agnes Frost LIPASEon 01-10-2022 Lipase [Catalytic activity/Vol] 212.0 U/L Normal 73.0-393.0 [facility] Comment on above: Performed By: #### C MP, LIPA, BNP, HSTROPN ####[facility] [id number] [address]Dr. Agnes Frost PROF 14(COMP METB)on Albumin [Mass/Vol] 3.9 g/dL Normal 3.4-5.0 [facility] Comment on above: Performed By: #### C MP, LIPA, BNP, HSTROPN #### [facility] [address] [place] [address] Dr. Agnes Frost Albumin/Globulin [Mass ratio] 1.0 {ratio} Normal [facility] Comment on above: Performed By: #### C MP, LIPA, BNP, HSTROPN #### [facility] [address] [place] [address] Dr. Agnes Frost ALP [Catalytic activity/Vol] 115 U/L Normal 46-116 [facility] Comment on above: Performed By: #### C MP, LIPA, BNP, HSTROPN #### [facility] [address] [place] [address] Dr. Agnes Frost ALT [Catalytic activity/Vol] 32 U/L Normal 14-59 [facility] Comment on above: Performed By: #### C MP, LIPA, BNP, HSTROPN #### [facility] [address] [place] [address] Dr. Agnes Frost Anion gap [Moles/Vol] 14.4 mmol/L Normal [facility] Comment on above: Performed By: #### C MP, LIPA, BNP, HSTROPN #### [facility] [address] [place] [address] Dr. Agnes Frost AST [Catalytic activity/Vol] 21 U/L Normal 15-37 [facility] Comment on above: Performed By: #### C MP, LIPA, BNP, HSTROPN #### [facility] [address] [place] [address] Dr. Agnes Frost Bilirubin [Mass/Vol] 0.3 mg/dL Normal 0.2-1.0 [facility] Comment on above: Performed By: #### C MP, LIPA, BNP, HSTROPN #### [facility] [address] [place] [address] Dr. Agnes Frost Calcium [Mass/Vol] 9.7 mg/dL Normal 8.5-10.1 [facility] Comment on above: Performed By: #### C MP, LIPA, BNP, HSTROPN #### [facility] [address] [address] [address] Agnes Frost Chloride [Moles/Vol] 104 mmol/L Normal 98-107 [facility] Comment on above: Performed By: #### C MP, LIPA, BNP, HSTROPN #### [facility] [address] [place] [address] Dr. Agnes Frost CO2 [Moles/Vol] 22.8 mmol/L Normal 21.0-32.0 [facility] Comment on above: Performed By: #### C MP, LIPA, BNP, HSTROPN #### [facility] [address] [address] [address] Anges Frost Creatinine [Mass/Vol] 0.67 mg/dL Normal 0.55-1.02 [facility] Comment on above: Performed By: #### C MP, LIPA, BNP, HSTROPN #### [facility] [address] [place] [address] Dr. Agnes Frost EGFR-AF IRISH >60 Normal >=60 [facility] Comment on above: Performed By: #### C MP, LIPA, BNP, HSTROPN #### [facility] [address] [place] [address] Dr. Agnes Frost EGFR-NON AF IRISH >60 Normal >=60 [facility] Comment on above: Performed By: #### C MP, LIPA, BNP, HSTROPN #### [facility] [address] [place] [address] Dr. Agnes Frost Globulin (S) [Mass/Vol] 4.0 g/dL Normal [facility] Comment on above: Performed By: #### C MP, LIPA, BNP, HSTROPN #### [facility] [address] [place] [address] Dr. Agnes Frost Glucose [Mass/Vol] 101 mg/dL Normal 74-106 [facility] Comment on above: Performed By: #### C MP, LIPA, BNP, HSTROPN #### [facility] [address] [place] [address] Dr. Agnes Frost Potassium [Moles/Vol] 4.2 mmol/L Normal 3.5-5.1 [facility] Comment on above: Performed By: #### C MP, LIPA, BNP, HSTROPN #### [facility] [address] [place] [address] Dr. Agnes Frost Protein [Mass/Vol] 7.9 g/dL Normal 6.4-8.2 [facility] Comment on above: Performed By: #### C MP, LIPA, BNP, HSTROPN #### [facility] [address] [place] [address] Dr. Agnes Frost Sodium [Moles/Vol] 137 mmol/L Normal 136-145 [facility] Comment on above: Performed By: #### C MP, LIPA, BNP, HSTROPN #### [facility] [address] [place] [address] Dr. Agnes Frost Urea nitrogen [Mass/Vol] 16.0 mg/dL Normal 7.0-18.0 [facility] Comment on above: Performed By: #### C MP, LIPA, BNP, HSTROPN #### [facility] [address] [place] [address] Dr. Agnes Frost Urea nitrogen/Creatinin e [Mass ratio] 23.9 mg/mg Normal [facility] Comment on above: Performed By: #### C MP, LIPA, BNP, HSTROPN #### [facility] [address] [place] [address] Dr. Agnes Frost PROTIMEon 01-10-2022 INR Coag (PPP) [Relative time] 1.01 {INR} Normal [facility] Comment on above: Performed By: #### P TT, PT #### [facility] [address] [place] [address] Dr. Agnes Frost INR GUIDELINES SEE BELOW Normal [facility] Comment on above: Result Comment: NAZANIN RED INR: 2.0 - 3.0 CONDITIONS NOT LISTED BELOW 2.5 - 3.5 FOR PROSTHETIC HEART VALVE REPLACEMENT 2.5 - 3.5 RECURRENT THROMBOSIS Performed By: #### P TT, PT #### [facility] [address] [place], [place] [address] Dr. Agnes Frost PT Coag (PPP) [Time] 10.9 s Normal 9.0-11.6 [facility] Comment on above: Performed By: #### P TT, PT #### [facility] [address] [address] [address] Agnes Frost PTTon 01-10-2022 aPTT Coag (Bld) [Time] 28.8 s Normal 22.3-36.2 [facility] Comment on above: Performed By: #### P TT, PT #### [facility] [address] [address] [address] Agnes Frost TROPONIN, HIGH SENSITIVITYon 01-10-2022 HSTROP 5.8 pg/mL Normal 4.0-51.3 [facility] Comment on above: Result Comment: CUT- OFF POINTS HAVE BEEN ESTABLISHED BASED ON THE FOURTH UNIVERSAL DEFINITIONS OF MYOCARDIAL INFARCTION. THE UPPER REFERENCE LIMIT (URL) OF TROPONIN, DEFINED THE 99TH PERCENTILE OF cTnI DISTRIBUTION IN A REFERENCE POPULATION, HAS BEEN CONFIRMED THE DECISION THRESHOLD FOR AK DIAGNOSIS. Performed By: #### C MP, LIPA, BNP, HSTROPN ####[facility] [id number] [place] [address]Dr. Agnes Frost XR CHEST 1 Von 01-10-2022 XR [...] by: AMINA LEE Date: 2022-01-10 15:00 Normal [facility] PROGRESSon 06-21-2017 PROGRESS HNO ID: [id number]: Katie CarrolldiService: (none)Author Type: PhysicianType: Progress NotesFiled: 06/21/2017 3:15 [...] kg (202 lb 6.4 oz) BMI 32.18 kg/x6ZXPKR: Normocephalic, atraumatic, mucus membranes moist and no [...] office note were sent to:Antony Zaldivar MD[address] [facility] [id number]:Nik Weller MD (PCP) [facility] CNOVon 06-18-2017 CNOV Office Visit (GYNOSA) MONOKETTY DELANEY ([id number]) 1970 FDate Time Provider Aqguqqmvlh61/7/17 2:40 PM KATIE PINTO During your visit [...] doing well and recoveredwell with no problems.Katie Pinot MDOBJECTIVE:VITALS: BP 134/77 Pulse 93 Temp 37.2 ?C (98.9 ?F) (Oral) Resp 16 Ht168.9 cm (5' 6.5ANDquot;) Wt 91.8 kg (202 lb 6.4 oz) BMI 32.18 kg/o1YMZTF: Normocephalic, atraumatic, mucus membranes moist and no [...] Zaldivar in the future. I am available ifnFaraz Pinto MD, MPH15 min spent with the patient with ANDgt;50% face to face counselingA letter and a copy of this office note were sent to:Antony Zaldivar MD[address] [facility] [id number]:Nik Weller MD (PCP)Referring Provider: KATIE PINTO [[id number]]Allergies As of Date: 06/18/2017(No Known Allergies)Date Reviewed: [...] by KATIE PINTO MD on 06/21/17 Normal [facility] Vital Signs Date Time Vital Sign Value Performing Clinician Faci lity 10-30-2024 14: Body height 172.7 cm Dustin Koch MD Work Phone: [facility] [employer] [facility] 10-30-2024 14:[id number] Body mass index (BMI) [Ratio] 30.71 kg/m2 Dustin Koch MD Work Phone: [employer] 10-30-2024 14: Body weight 91.63 kg Dustin Koch MD Work Phone: [facility] [employer] [facility] 10-30-2024 14:27-0400 Diastolic blood pressure 72 mm[Hg] Dustin Koch MD Work Phone: [facility] [employer] [facility] 10-30-2024 14:27-0400 Heart rate 78 /min Dustin Koch MD Work Phone: [facility] [employer] [facility] 10-30-2024 14:27-0400 SaO2% (BldA) [Mass fraction] 97 % Dustin Koch MD Work Phone: [facility] [employer] [facility] 10-30-2024 14:27-0400 Systolic blood pressure 112 mm[Hg] Dustin Koch MD Work Phone: [facility] [employer] [facility] 02-11-2024 09:46-0400 Body height 172.7 cm Dustin Koch MD Work Phone: [facility] [employer] 02-11-2024 09:46-0400 Body mass index (BMI) [Ratio] 31.08 kg/m2 Dustin Koch MD Work Phone: [facility] [employer] 02-11-2024 09:46-0400 Body weight 92.72 kg Dustin Koch MD Work Phone: [facility] [employer] 02-11-2024 09:46-0400 Diastolic blood pressure 88 mm[Hg] Dustin Koch MD Work Phone: [facility] [employer] 02-11-2024 09:46-0400 Heart rate 84 /min Dustin Koch MD Work Phone: [facility] [employer] [facility] 02-11-2024 09:46-0400 SaO2% (BldA) [Mass fraction] 97 % Dustin Koch MD Work Phone: [facility] [employer] [facility] 02-11-2024 09:46-0400 Systolic blood pressure 148 mm[Hg] Dustin Koch MD Work Phone: [facility] 04-19-2019 11:38-0400 BP Diastolic 85 mm[Hg] [place] 04-19-2019 11:38-0400 BP Systolic 131 mm[Hg] Chana Escamilla [facility], [place] 04-19-2019 11:38-0400 Pulse (Heart Rate) 79 /min Chana Lujan [facility], [place] 04-19-2019 11:38-0400 Pulse Oximetry 99 % Chana Escamilla [facility], [place] 04-19-2019 11:38-0400 Respiratory Rate 14 /min Chana Escamilla [facility], [place] 04-19-2019 10:21-0400 BMI (Body Mass Index) 31.32 kg/m2 Chana Escamilla [facility], [place] 04-19-2019 10:21-0400 Body Temperature 97.81 [degF] Chana Escamilla [facility], [place] 04-19-2019 10:21-0400 Body weight 93.44 kg Chana Escamilla [facility], [place] 04-19-2019 10:21-0400 Height 172.7 cm Chana Escamilla [facility], [place] Encounters Encounter Date Encounter Type Care Provider Facility Start: 12-09-2024 End: 12-11-2024 Refill Valeria Yun PA-C Work Phone: [facility] Comment on above: Med Refill Start: 10-30-2024 End: 10-30-2024 Office outpatient visit 25 minutes Dustin Koch MD Work Phone: [facility] Comment on above: Mixed hyperlipidemia (Primary Dx); Chest pain, unspecified type; Microvascular angina ([facility]) Start: 10-30-2024 End: 10-30-2024 ambulatory DUSTIN KOCH [facility] Start: 10-29-2024 End: 10-29-2024 Telephone encounter Dalia Perry CMA [facility] Start: 09-14-2024 End: 09-14-2024 Refill Roxann Major LPN [facility] Comment on above: Med Refill Start: 02-11-2024 End: 02-11-2024 Office outpatient visit 25 minutes Dustin Koch MD Work Phone: [facility] Comment on above: Microvascular angina (CMS-HCC) (Primary Dx) Start: 02-11-2024 End: 02-11-2024 ambulatory DUSTIN KOCH [facility] Start: 02-10-2024 End: 02-10-2024 Telephone encounter Dalia [facility] Start: 12-27-2023 End: 12-27-2023 Documentation procedure Devon Greenberg MD [facility] Phone[facility] Start: 12-02-2022 End: 12-02-[address] DOCTOR KIDD Facility:[facility] Start: 01-10-2022 End: 01-11-[address] DOCTOR KIDD Facility:[facility] Start: 04-19-2019 End: 04-19-2019 Emergency department patient visit [facility] Start: 04-19-2019 End: 04-19-2019 Emergency department patient visit [facility] ED Comment on above: Right arm pain (Prim garry Dx); Contusion of right elbow, initial encounter; Ulnar neuropathy at elbow of right upper extremity Start: 06-18-2017 End: 06-24-2017 Ambulatory KATIE PINTO [facility] Procedures Date Procedure Procedure Detail Performing Clinician Start: 10-30-2024 Ecg routine ecg w/least 12 lds w/i&r Dustin Koch MD Work Phone: Start: 02-11-2024 Follow-up visit Follow-up DUSTIN KOCH Start: 04-19-2019 ED NURSING COMMUNICATION CHANA PAUL LINDSEY Start: 04-18-2018 H/O: surgery S/P nasal septoplasty Devon Greenberg MD Work Phone: Plan of Treatment Date Care Activity Detail Author Start: 10-30-2025 Adult BMI Screening Adult BMI Screen ing [facility] Start: 10-30-2025 Tobacco Screening Tobacco Screening [facility] Start: 04-12-2025 Influenza vaccination Influenza Vacc ine [facility] Start: 02-10-2025 Adult BMI Screening Adult BMI Screen ing [facility] Start: 02-10-2025 Tobacco Screening Tobacco Screening [facility] Start: 10-30-2024 End: 10-30-2024 Patient encounter procedure 10/30/2024 2:30 PM EDT Office Visit [facility] [address] [place] [id number] Dustin Koch MD [address], [place] [id number] [facility] Start: 07-02-2024 Adult BMI Screening Adult BMI Screen ing [facility] Start: 07-02-2024 Tobacco Screening Tobacco Screening [facility] Start: 04-12-2024 Influenza vaccination Influenza Vacc ine [facility] Start: 02-11-2024 End: 02-11-2024 Patient encounter procedure 02/11/2024 10:15 AM EDT Office Visit [facility] [address] [place] [id number] Dustin Koch MD [address] [place] [address] [facility] Start: 04-12-2019 Influenza vaccination Flu vaccine (# 1) [place], [place] Start: 2018 Administration of varicella zoster vaccine Zoster (Shingles) Vaccine (1 of 2) [facility] Start: 2018 Breast cancer [place] Start: 1987 DTaP,Tdap and Td Vaccines (1 - Tdap) DTaP,Tdap and Td Vaccines (1 - Tdap) [facility] Start: 1986 Adult BMI Follow Up Plan Adult BMI F ollow Up Plan [facility] Start: 1980 Depression Screening Depression Scre ening [facility] Start: 1968 Tobacco Counseling Tobacco Counselin g [facility] End: 09-14-2025 Lipid 1996 panel - Serum or Plasma Lipid profile Lab Routine Mixed hyperlipidemia Chest pain, unspecified type 1 Occurrences starting 09/14/2024 until 09/14/2025 [facility] Work Phone: Comment on above: 1 Occurrences starti ng 09/14/2024 until 09/14/2025 Payers Date Payer Category [place]ayer Medicaid [place] [id number] 2022-Present [phone] [address] [place] [address] [id number] 2012 Medicare MEDICARE MEDICAR E PART A AND B xxxxxxxxxxx 2012-Present [phone] [place] [address] [place] [address] xxxxxxxxxxx [id number] 2012 Medicare [id number] 2005 Unknown [id number] 2005 Unknown GENERIC MCO GENE NEDRA MCO WC xxxxxxxx 2005-Present [address] [place] [address] xxxxxxxx [id number] 1968 Unknown [id number] 1968 Unknown [id number] 1968 Unknown [id number] 1968 Unknown [id number] 1968 Unknown [id number] 1961 Medicaid [id number] 1961 Medicare [id number] Social History Date Type Detail Facility Start: 04-19-2019 End: 02-11-2024 Tobacco smoking status NHIS Current every day smoker [facility] History of tobacco use [facility] Start: 04-19-2019 End: 09-22-2020 Cigarettes smoked current (pack per day) - Reported [facility] Start: 1970 Sex Assigned At Not on file [facility] [place] Start: 03-29-2023 End: 02-11-2024 Tobacco use and exposure Smokeless tobacco non-user [facility] Start: 02-11-2024 End: 10-30-2024 Alcoholic beverage intake Current drinker of alcohol (finding) [facility] Start: 09-22-2020 End: 02-11-[address] [facility] Childcare Unknown [facility] Start: 01-22-2018 Alcohol Comment social [facility] [place] [facility] Start: 03-17-2015 Sex Female (finding) [facility] Clinical Notes 12-27-2023 to 12-09-2024 Telephone Encounter - Yasmine De La Cruz RN - 12/09/2024 12:29 AM EDTTelephone Encounter - Yasmine De La Cruz RN - 12/09/2024 12:29 AM Ana Luisa Koch MD - 10/30/2024 2:30 PM EDTPatient Instructions Note Date & Type Note Facility 12-09-2024 Miscellaneous Notes Formattin g of this note might be different from the original. OV-10/30/24 Lipids-10/26/[address] [facility] 12-09-2024 Telephone encount er Note OV-10/30/24 Lipids-10/26/24 [facility] 10-30-2024 History of Presen t illness Narrative Ketty Roca Date of visit: 10/30/2024 Date of : 1970 Age: 54 y.o. Patient Active Problem List Diagnosis Apnea Deviated septum Fatigue S/P nasal septoplasty Sinusitis Microvascular angina (CMS-HCC) Mixed hyperlipidemia Allergies Allergen Reactions Bee Sting [Bee Venom Protein (Honey Bee)] Current Outpatient Medications Medication Sig Dispense Refill acetaminophen (TYLENOL ARTHRITIS) 650 mg 8 hr tablet Take 1 tablet (650 mg total) by mouth in the morning. aspirin 81 mg Take 1 tablet (81 [...] (IBUPROFEN PM ORAL) Take by mouth nightly. isosorbide mononitrate (IMDUR) 30 mg 24 hr tablet Take 1 tablet (30 mg total) by mouth daily. 90 tablet 3 multivit with minerals/lutein (MULTIVITAMIN 50 PLUS ORAL) Take by mouth daily. nitroglycerin (NITROSTAT) 0.[address] 1 tablet (0.4 mg total) under the tongue every 5 (five) minutes as needed for chest pain. rosuvastatin (CRESTOR) 20 mg tablet Take 1 tablet (20 mg total) by mouth in the morning. 90 tablet 0 ubidecarenone/vitamin E mixed (COQ10 SG 100 ORAL) Take 200 mg by mouth in the morning. VENTOLIN HFA 90 mcg/actuation inhaler INHALE 2 PUFFS BY MOUTH EVERY 6 HOURS NEEDED FOR WHEEZING 18 Inhaler 0 black cohosh 540 mg capsule Take by mouth daily. ranolazine (RANEXA) 500 mg 12 hr tablet Take 1 tablet (500 mg total) by mouth in the morning and 1 tablet (500 mg total) before bedtime. 180 tablet 3 No current facility-administered medications for this visit. Chief Complaint Patient presents with Follow-up 8 MONTH Hyperlipidemia Chest Pain Shortness of Breath On exertion History of Present Illness 54-year-old still having anginal chest discomfort at work Calcium score 15 No obstructive lesions minimal plaque if any on CTA Past Medical History: Diagnosis Date Bronchitis Bronchitis Cancer ([facility]) vulva cancer Chest pain Depression Deviated septum Epicondylitis elbow, medial, right Fatigue Migraine Shortness of breath Sleep apnea cpap Ulnar neuropathy Visual impairment glasses No data recorded No data recorded No data recorded Past Surgical History: Procedure Laterality Date ANKLE SURGERY Right CLOSED REDUCTION UPPER EXTREMITY 4 arm surgeries, right HYSTERECTOMY RESECTION SUBMUCOSAL Bilateral 04/10/2018 Performed by Carson Holman MD at [facility] SEPTOPLASTY N/A 04/10/2018 Performed by Carson Holman MD at [facility] Family History Problem Relation Age of [...] Social History Narrative Not on file Social Drivers of Health Financial Resource Strain: Not on file Food Insecurity: No Food Insecurity (10/30/2024) Hunger Screening Food Insecurity - Worry: Never True Food Insecurity - Inability: Never True Transportation Needs: Not on file Physical Activity: Not on file Stress: Not on file Social Connections: Not on file Interpersonal Safety: Unknown (10/03/2023) Received from [facility] Safety & Environment Fear of Current or Ex-Partner: Not on file Emotionally Abused: Not on file Physically Abused: Not on file Sexually Abused: Not on file Physically or Sexually Abused: Not on file Housing Instability: Not on file Review of Systems Review of Systems Constitutional: Positive for malaise/fatigue. HENT: Negative. Eyes: Positive for blurred vision. Respiratory: Negative. Hematologic/Lymphatic: Bruises/bleeds easily. Skin: Negative. Musculoskeletal: Negative. Gastrointestinal: Negative. Neurological: Positive for dizziness, headaches, light-headedness, loss of balance and numbness. Psychiatric/Behavioral: Positive for depression. The patient is nervous/anxious. Allergic/Immunologic: Positive for environmental allergies. CARDIOVASCULAR: Please review HPI. Physical Examination General [...] mood, memory and judgement. VITAL SIGNS: BP 112/72 (BP Site: Left Arm, BP Postition: Sitting) Pulse 78 Ht 172.7 cm (5' 8 ) Wt 91.6 kg (202 lb) SpO2 97% BMI 30.71 kg/m Orders Placed or Reconciled This Encounter Medications ranolazine (RANEXA) 500 mg 12 hr tablet Sig: Take 1 tablet (500 mg total) by mouth in the morning and 1 tablet (500 mg total) before bedtime. Dispense: 180 tablet Refill: 3 There are no discontinued medications. IMPRESSIONS/PLAN 1. Mixed hyperlipidemia - POCT EKG 2. Chest pain, unspecified type - POCT EKG 3. Microvascular angina ([facility]) Impression 1. Microvascular angina, still not well-controlled, start Ranexa she is already on Imdur. She needs to quit smoking and start exercising. Seems like has a lot of these episodes at work is on several medications for depression, she says her medications are working. 2. Nonobstructive coronary disease with calcium score of 15 no significant plaques or stenosis. 3. Normal heart on echocardiogram 2019 4. Hyperlipidemia on Crestor TODAYS ORDERS Orders Placed This Encounter Procedures POCT EKG FOLLOW UP Return in about 1 year (around 10/30/2025). PCP: Lin Weller MD Referring Physician: Lin Weller MD [address] [place] [address] documented in this encounter [facility] 10-30-2024 Instructions Dalia Perry [facility] - 10/30/2024 2:30 PM EDT Are You Ready To Kick The Habit? Free Tobacco Cessation Resources [facility] Services [facility] Tobacco Treatment Centers provide all employees with free tobacco cessation services that include: Counseling to understand nicotine addiction Education about medications that can help you successfully quit Assistance with developing a plan to quit Call to set up an individual appointment or find out when group classes will be held: [facility]: [phone] [facility]: [phone] [facility]: [phone] [facility]: [phone] Quit Smoking Action Plan and Resources [facility] offers an eight-week, online smoking cessation plan to all [facility] employees, regardless of whether [place] is your medical insurance provider. Go to [email or web address] lness and click the Health Risk Assessment and Resources link to get started. In the Wcgbf3Zzsvwk menu, click Action Plans instead of Health Risk Assessment to access the Quit Smoking Action Plan. Additional smoking cessation resources are also available to all [facility] employees on the Oanvj4Iakogx web page at [email or web address] [email or web address]. [place] Tobacco Cessation Program If [place] is your medical insurance provider, there are more free resources available to you, including: No copays or deductibles on local tobacco cessation counseling services to help you quit Prescription assistance for tobacco cessation medications to help you quit For details about the tobacco cessation program available to [place] members, go to www.PadProof (Search: Tobacco Cessation Program). [place] Tobacco Quit Line 7-345-IWJK-NOW ( ) is a toll-free, telephonic service that helps [place] residents quit smoking and using tobacco. It is staffed by experts who tailor a quit plan for you and provide you with advice. [place] Tobacco Quit Line 3-899-DWMO-NOW ( ) is a toll-free, telephonic service that helps [place] residents quit smoking and using tobacco. It is staffed by experts who tailor a quit plan for you and provide you with advice. Two weeks of nicotine replacement therapy may be provided at no charge, if needed. Additional Resources These national organizations also offer free information and resources to help you quit tobacco: [place] [employer]--www.cancer.org/healthy /stayawayfromtobacco [place] [employer]--www.heart.org (Search: Quit Smoking) Centers for Disease Control and Prevention--www.cdc.gov/tobacco [place] Lung Association--www.lungusa.org documented in this encounter [facility] 10-29-2024 Miscellaneous Notes Formattin g of this note might be different from the original. Called patient to remind them to bring their most current copy of their medication list with them to their appt. Patient verbalizes understanding. documented in this encounter [facility] 10-29-2024 Telephone encount er Note Called patient to remind them to bring their most current copy of their medication list with them to their appt. Patient verbalizes understanding. [facility] 02-11-2024 History of Presen t illness Narrative Ketty Francois Chanelle Date of visit: 02/11/2024 Date of : [...] presents with Follow-up EST PT F/U IN [place] ER SCHED W/ PT History of Present [...] Medical History: Diagnosis Date Bronchitis Bronchitis Cancer (CMS-HCC) vulva cancer Chest pain Depression Deviated septum Epicondylitis elbow, medial, right Fatigue Migraine Shortness of breath Sleep apnea cpap Ulnar neuropathy Visual impairment glasses No data recorded No data recorded No data recorded Past Surgical History: Procedure Laterality Date ANKLE SURGERY Right CLOSED REDUCTION UPPER EXTREMITY 4 arm surgeries, right HYSTERECTOMY RESECTION SUBMUCOSAL Bilateral 04/10/2018 Performed by Carson Holman MD at [facility] SEPTOPLASTY N/A 04/10/2018 Performed by Carson Holman MD at [facility] Family History Problem Relation Age of [...] Interpersonal Safety: Unknown (10/03/2023) Received from [facility] Safety & Environment Fear of Current or [...] Weller MD Referring Physician: Lin Weller MD [address] [place] [address] documented in this encounter [facility] 02-11-2024 Instructions Rose Lang [facility] - 02/11/2024 10:15 AM EDT Are You Ready To Kick The Habit? Free Tobacco Cessation Resources [facility] Services [facility] Tobacco Treatment Centers provide all employees with free tobacco cessation services that include: Counseling to understand nicotine addiction Education about medications that can help you successfully quit Assistance with developing a plan to quit Call to set up an individual appointment or find out when group classes will be held: [facility]: [phone] [facility]: [phone] [facility]: [phone] [facility]: [phone] Quit Smoking Action Plan and Resources [facility] offers an eight-week, online smoking cessation plan to all [facility] employees, regardless of whether [place] is your medical insurance provider. Go to [email or web address] lness and click the Health Risk Assessment and Resources link to get started. In the Mmmvx5Fhitix menu, click Action Plans instead of Health Risk Assessment to access the Quit Smoking Action Plan. Additional smoking cessation resources are also available to all [facility] employees on the Wzcrp0Cggjaf web page at [email or web address] [email or web address]. [place] Tobacco Cessation Program If [place] is your medical insurance provider, there are more free resources available to you, including: No copays or deductibles on local tobacco cessation counseling services to help you quit Prescription assistance for tobacco cessation medications to help you quit For details about the tobacco cessation program available to [place] members, go to www.PadProof (Search: Tobacco Cessation Program). [place] Tobacco Quit Line 9-801-LWNS-NOW ( ) is a toll-free, telephonic service that helps [place] residents quit smoking and using tobacco. It is staffed by experts who tailor a quit plan for you and provide you with advice. [place] Tobacco Quit Line 5-717-HRDT-NOW ( ) is a toll-free, telephonic service that helps [place] residents quit smoking and using tobacco. It is staffed by experts who tailor a quit plan for you and provide you with advice. Two weeks of nicotine replacement therapy may be provided at no charge, if needed. Additional Resources These national organizations also offer free information and resources to help you quit tobacco: [place] [employer]--www.cancer.org/healthy /stayawayfromtobacco [place] Heart Association--www.heart.org (Search: Quit Smoking) Centers for Disease Control and Prevention--www.cdc.gov/tobacco [place] Lung Association--www.lungusa.org documented in this encounter [facility] 02-10-2024 Miscellaneous Notes Formattin g of this note might be different from the original. Called patient to remind them to bring their most current copy of their medication list with them to their appt. Patient verbalizes understanding. documented in this encounter [facility] 02-10-2024 Telephone encount er Note Called patient to remind them to bring their most current copy of their medication list with them to their appt. Patient verbalizes understanding. [facility] 12-27-2023 History of Presen t illness Narrative error documented in this encounter [facility] Evaluation note Diagnosis Mixed hyperlipidemia Chest pain, unspecified type Tobacco abuse Tobacco use disorder documented [facility] Diagnosis Microvascular angina (CMS-HCC)- Primary [facility] Diagnosis Mixed hyperlipidemia- Primary Chest pain, unspecified type Microvascular angina documented in this [facility] on filedocumented in this encounter [facility] on filedocumented in this encounter [facility] on filedocumented in this encounter [facility] on filedocumented in this encounter [facility] Summary Purpose Family History No Family History Records FoundNo Family History Records FoundNo Family History Records FoundNo Family History Records Found Advance Directives Documents on File Type Date Recorded 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 * Contusion (Sinhala) documented in this encounter Assessments Diagnosis Right arm pain- Primary Pain in limb Contusion of right elbow, initial encounter Ulnar neuropathy at elbow of right upper extremity Additional Source Comments INFORMATION SOURCE (unrecogn ized section and content) DATE CREATED AUTHOR 02/04/2018 [facility] DATE CREATED AUTHOR AUTHOR'S ORGANIZ ATION 04/19/2019 [facility] DATE CREATED AUTHOR AUTHOR'S ORGANIZ ATION 12/05/2022 [facility] DATE CREATED AUTHOR AUTHOR'S ORGANIZ ATION 11/01/2024 [facility] Reason for Visit (unrecogniz ed section and content) Reason Comments Arm Pain Right elbow, chronic . Pt states worse after reaching for a box at work today Reason Onset Date Comments Med Refill 09/14/2024 Reason Comments Follow-up EST PT F/U IN [facility] ER SCHED W/ PT Reason Comments Follow-up 8 MONTH Hyperlipidemia Chest Pain Shortness of Breath On exertion Reason Comments Med Refill Care Teams (unrecognized sec tion and content) Snag Grinder Relationship Specialty Start Date End Date Lin Weller MD [address] [place] [address] PCP - General Family Medicine 03/27/18 Snag Grinder Relationship Specialty Start Date End Date Lin Weller MD [address] [place] [address] PCP - General Family Medicine 03/27/18 Snag Grinder Relationship Specialty Start Date End Date Lin Weller MD [address] [place] [address] PCP - General Family Medicine 03/27/18 Snag Grinder Relationship Specialty Start Date End Date Lin Weller MD [address] [place] [address] PCP - General Family Medicine 03/27/18 Snag Grinder Relationship Specialty Start Date End Date Lin Weller MD [address] [place] [address] PCP - General Family Medicine 03/27/18 FOR [...] BE BASED ON THE PRIMARY CLINICAL RECORDS. [facility]. provides no warranty or guarantee of the accuracy or completeness of information in this document.
--- NOTE | 2025-01-15 16:46 | ED_ITS ---
HPI HPI - General Adult General Chief complaint: Chest Pain Stated complaint: CHEST PAIN Time Seen by Provider: 01/15/25 16:46 Source: patient Mode of arrival: walk-in History of Present Illness HPI narrative: Patient is a 54-year-old female who is presenting to the ER today with chief complaint of acute on chronic chest pain. Patient states she has had multiple test, ER visits secondary to chest pain. Patient did have a Lexiscan stress test and echocardiogram approximately 2020. Patient has not had a cardiac cath. No history of PE. No recent heavy lifting, twist has had no recent traveling. Patient is not any type of control hormones. Patient is on no blood thinners. No history of DVT. Patient's bilingual call center representative is in [place]. Patient PCP in [place] is. Patient is on no heavy lifting, twisting or turning. No significant social anxiety or stressors. 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 No recent picking up heavy things, no rash. All systems are negative except as noted/marked. All systems reviewed and otherwise negative. Nurses note and vital signs reviewed and patient is not hypoxic. General: The patient appears well and in no apparent distress. Patient is resting comfortably on cart. Patient is not toxic, lethargic, or listless Skin: Warm, dry, no pallor noted. There is no rash noted. No petechiae, purpura. Multiple tattoos, no secondary signs infection. Head: Normocephalic, atraumatic Eye: Normal conjunctiva, no drainage, EOMI. PERRL Ears, Nose, Mouth, and Throat: oral mucosa is moist. Nares patent. Mouth without vesicles. Cardiovascular: Regular Rate and Rhythm, no murmur, gallop, rub. Patient does have reproducible tenderness to palpation to bilateral anterior chest wall, no rash. No crepitus. Equal chest rise, equal breath sounds bilateral. No rash. No tenderness palpation to bilateral lateral or posterior chest wall. Respiratory: Patient is in no distress, no accessory muscle use, lungs are clear to auscultation, no wheezing, rales or rhonchi Back: non-tender, no CVA tenderness bilaterally to percussion. No CT LS midline pain GI: Soft, no tenderness to palpation, no masses appreciated. No rebound, guarding, or rigidity noted. No distention Musculoskeletal: Patient has full range of motion of all of the extremities, no motor, sensory, or focal neurological deficits Neurological: A&O x4, normal speech Psychiatric: Cooperative Related Data Home Medications ?Medication ?Instructions ?Recorded ?Confirmed fluoxetine 20 mg capsule 40 mg PO QAM 03/18/23 nitroglycerin 0.4 mg sublingual 0.4 mg sublingual Q5M PRN chest 03/18/23 01/15/25 tablet pain rosuvastatin 20 mg tablet 20 mg PO DAILY 03/18/2302/03 buspirone 15 mg tablet 7.5 mg PO BID 12/27/2301/15 aspirin 81 mg tablet,delayed 81 mg PO QPM 06/02/2402/03 release (Adult Low Dose Aspirin) coenzyme Q10 100 mg capsule 200 mg PO DAILY 06/02/24 0 01/15/25 (CoQ-10) fluoxetine 20 mg capsule 20 mg PO QPM 06/02/24 isosorbide mononitrate 30 mg 30 mg PO DAILY 06/02/24 0 01/15/25 tablet,extended release 24 hr acetaminophen 650 mg 1,300 mg PO QAM 01/15/2502/03 tablet,extended release (8 Hour Pain Reliever) biotin 10,000 mcg capsule 10,000 mcg PO DAILY 01/15/25 01/15/25 ibuprofen 400 mg tablet 400 mg PO QPM 01/15/2501/15 multivitamin 1 tab PO DAILY 01/15/2502/03 ranolazine 500 mg tablet,extended 500 mg PO BID 01/15/25 release,12 hr Allergies Allergy/AdvReac Type Severity Reaction Status Date / Time No Known Drug Allergies Allergy Verified 09/30/24 12:26 Opioid HPI Opioid Management Most Recent Opioid Data: Last Pain Scale 7 09/30/24, 13:14 PFSH PFSH Social History Little interest or pleasure in doing things: not at all Feeling down, depressed, or hopeless: not at all Exam Constitutional Vital Signs, click to edit/add: Last Vital Signs Temp 98.2 F 01/15/25 16:29 Pulse 66 01/15/25 18:02 Resp 20 01/15/25 18:02 BP 133/77 01/15/25 18:02 Pulse Ox 99 01/15/25 18:02 O2 Del Method Room Air 01/15/25 18:02 Course Vital Signs Vital signs: Vital Signs Temperature 98.2 F 01/15/25 16:29 Pulse Rate 69 01/15/25 16:29 Respiratory Rate 24 H 01/15/25 16:29 Blood Pressure 145/70 H 01/15/25 16:29 Pulse Oximetry 99 01/15/25 16:29 Temperature 98.2 F 01/15/25 16:29 Pulse Rate 66 01/15/25 18:02 Respiratory Rate 20 01/15/25 18:02 Blood Pressure 133/77 01/15/25 18:02 Pulse Oximetry 99 01/15/25 18:02 Oxygen Delivery Method Room Air 01/15/25 18:02 Medical Decision Making MDM Narrative Medical decision making narrative: Patient seen and examined: Patient have cardiac workup, patient will be given 2 additional baby aspirin. Patient takes 1 baby aspirin at nighttime. Differential diagnosis includes but is not limited to: Anxiety, stress, costochondritis, chest wall pain, ACS, TN, pneumonia, pneumothorax Diagnostics and management: Patient will have laboratory studies Relevant laboratory interpretation: Troponin negative. Radiological studies: Please see the formal radiological report. Chest x-ray shows no acute cardiopulmonary disease. Reevaluation: Patient took 4 baby aspirin prior to arrival. Shared decision making: I discussed with the patient the necessary laboratory findings and radiological findings. Social barriers to healthcare: There are no food insecurities, there is no issue with transportation, there are no insurance barriers. Disposition: I discussed with the patient negative findings. Patient troponin, chest x-ray, lab work shows no acute findings. Patient will call her bilingual call center representative in [place] on Saturday. We have discussed cardiac catheterization. If indicated, patient will have this discussion with her bilingual call center representative. No question at discharge. Patient feels safe going home. Patient's symptoms started around 730 this morning but they been going on and off for 4 to 5 years. Lab Data Labs: Lab Results 01/15/25 Range/Units 17:15 WBC 8.5 (4.0-11.0) 10^3/uL RBC 3.67 L (4.20-5.40) 10^6/uL Hgb 11.4 L (12.0-16.0) g/dL Hct 33.8 L (36.0-48.0) % MCV 92.1 (81.0-99.0) fL MCH 31.1 (26.7-34.0) pg MCHC 33.7 (29.9-35.2) g/dL RDW 13.4 (11.0-15.0) % Plt Count 329 (150-450) 10^3/uL MPV 9.0 L (9.5-13.5) fL Neut % (Auto) 40.2 L (43.0-75.0) % Lymph % (Auto) 47.9 (20.5-60.0) % [place] % (Auto) 7.5 (1.7-12.0) % Eos % (Auto) 3.4 (0.9-7.0) % Baso % (Auto) 0.8 (0.2-2.0) % Neut # (Auto) 3.4 (1.4-6.5) 10^3/uL Lymph # (Auto) 4.1 H (1.2-3.8) 10^3/uL [place] # (Auto) 0.6 (0.3-0.8) 10^3/uL Eos # (Auto) 0.3 (0.0-0.7) 10^3/uL Baso # (Auto) 0.1 (0.0-0.1) 10^3/uL Abs Immat Gran (auto) 0.02 (0.00-0.03) 10^3/uL Imm/Tot Granulo (auto) 0.2 (0.0-0.5) % Sodium 140 (136-145) mmol/L Potassium 3.9 (3.5-5.1) mmol/L Chloride 104 (98-107) mmol/L Carbon Dioxide 27.4 (21.0-32.0) mmol/L Anion Gap 12.5 BUN 21.0 H (7.0-18.0) mg/dL Creatinine 0.61 (0.55-1.02) mg/dL Est GFR ( Amer) >60 (>=60 mL/min/1.73m^2) Est GFR (Non-Af Amer) >60 (>=60 mL/min/1.73m^2) BUN/Creatinine Ratio 34.4 Glucose 82 (74-106) mg/dL Calcium 9.1 (8.5-10.1) mg/dL Total Bilirubin 0.3 (0.2-1.0) mg/dL AST 23 (15-37) U/L ALT 29 (14-59) U/L Alkaline Phosphatase 91 (46-116) U/L Troponin I High Sens <4.0 L (4.0-51.3) pg/mL Total Protein 7.1 (6.4-8.2) g/dL Albumin 3.7 (3.4-5.0) g/dL Globulin 3.4 g/dL Albumin/Globulin Ratio 1.1 Lipase 36.0 (16.0-77.0) U/L ECG Data Attestation: I personally reviewed and interpreted this ECG as follows: (EKG interpretation. Normal sinus rhythm at 66 beats a minute. Normal axis deviation. No acute ST elevation, no acute ectopy. QTc of 421) Discharge Plan Discharge Chief Complaint: Chest Pain Clinical Impression: Chest pain Patient Disposition: Home, Self-Care Time of Disposition Decision: 18:56 Condition: Fair Prescriptions / Home Meds: No Action fluoxetine 20 mg capsule 40 mg PO QAM rosuvastatin 20 mg tablet 20 mg PO DAILY nitroglycerin 0.4 mg tablet, sublingual 0.4 mg sublingual Q5M PRN (Reason: chest pain) ranolazine 500 mg tablet extended release 12 hr 500 mg PO BID biotin 10,000 mcg capsule 10,000 mcg PO DAILY ibuprofen 400 mg tablet 400 mg PO QPM acetaminophen [8 Hour Pain Reliever] 650 mg tablet extended release 1,300 mg PO QAM multivitamin Tablet 1 tab PO DAILY buspirone 15 mg tablet 7.5 mg PO BID isosorbide mononitrate 30 mg tablet extended release 24 hr 30 mg PO DAILY coenzyme Q10 [CoQ-10] 100 mg capsule 200 mg PO DAILY aspirin [Adult Low Dose Aspirin] 81 mg tablet,delayed release (DR/EC) 81 mg PO QPM fluoxetine 20 mg capsule 20 mg PO QPM Print Language: Hungarian Instructions: Chest Pain (ED) Additional Instructions: Follow-up with your bilingual call center representative. Call your bilingual call center representative in [place] for further evaluation and testing as needed. We have discussed the testing of a cardiac catheterization if indicated. Discussed this with your bilingual call center representative. Referrals: Chaka Gallardo MD [Primary Care Provider] - 1 week
[2025-01-15 17:00] VITALS: PULSE 70; O2SAT 100
--- NOTE | 2025-01-15 17:05 | XR_ITS ---
The [address] [address] Patient Name: WINIFRED MARTINEZ MRN: [id number] date: 1970 Sex: F Assigned Patient Location: ER Current Patient Location: ER Accession/Order Number: [id number] Exam Date: 01/15/2025 18:05 Report Date: 01/15/2025 18:06 At the request of: JAVIER NERI MD Procedure: XR chest 2V Plain film chest 2 view HISTORY: Chronic chest pain COMPARISON: 09/30/2024 FINDINGS: SUPPORT DEVICES: None POSTSURGICAL CHANGES: None HEART: Within normal limits PULMONARY ENRIQUE: Within normal limits MEDIASTINUM: Unremarkable LUNGS AND PLEURA: No acute lung process, pleural effusion or pneumothorax identified. BONY STRUCTURES: Intact ADDITIONAL FINDINGS None XR/XR chest 2V IMPRESSION: No acute process. Impression dictated by: Javier Doss M.D. 01/15/2025 6:06 PM Dictation Location: [place] [address] Electronically authenticated by: [id number] Y Date: 01/15/2025 18:06
--- NOTE | 2025-01-15 17:05 | ECG_ITS ---
The [facility] Test Date: 2025-01-15 Pat Name: WINIFRED MARTINEZ Department: Room: - Gender: Female Accessioner: : 1970 Requested By: [id number] Order Number: [id number] Reading MD: MEREDITH NICHOLS M.D. Measurements Intervals [place] Rate: 66 P: 58 IL: 202 QRS: 65 QRSD: 86 T: 30 QT: 408 QTc: 421 Interpretive Statements 1100 Sinus rhythm 9110 normal ECG Compared to ECG 09/30/2024 12:32:00 No significant changes Electronically Signed On 01-15-2025 18:28:59 EDT by MEREDITH NICHOLS M.D.
[2025-01-15 17:26] LABS: Basophils Absolute Auto 0.1 10^3/uL (0.0-0.1); Basophils Percent Auto 0.8 % (0.2-2.0); Eosinophils Absolute Auto 0.3 10^3/uL (0.0-0.7); Eosinophils Percent Auto 3.4 % (0.9-7.0); Hematocrit 33.8 % (36.0-48.0); Hemoglobin 11.4 g/dL (12.0-16.0); Immature Granulocytes Abs Auto 0.02 10^3/uL (0.00-0.03); Immature Granulocytes Pct Auto 0.2 % (0.0-0.5); Lymphocytes Absolute Auto 4.1 10^3/uL (1.2-3.8); Lymphocytes Percent Auto 47.9 % (20.5-60.0); Mean Corpuscular HGB Conc 33.7 g/dL (29.9-35.2); Mean Corpuscular Hemoglobin 31.1 pg (26.7-34.0); Mean Corpuscular Volume 92.1 fL (81.0-99.0); Monocytes Absolute Auto 0.6 10^3/uL (0.3-0.8); Monocytes Percent Auto 7.5 % (1.7-12.0); Neutrophils Absolute Auto 3.4 10^3/uL (1.4-6.5); Neutrophils Percent Auto 40.2 % (43.0-75.0); Platelet Count 329 10^3/uL (150-450); Red Blood Count 3.67 10^6/uL (4.20-5.40); Red Cell Distribution Width 13.4 % (11.0-15.0); White Blood Count 8.5 10^3/uL (4.0-11.0)
[2025-01-15 17:47] LABS: Alanine Aminotransferase 29 U/L (14-59); Albumin Globulin Ratio 1.1; Albumin Level 3.7 g/dL (3.4-5.0); Alkaline Phosphatase 91 U/L (46-116); Anion Gap 12.5; Aspartate Amino Transferase 23 U/L (15-37); BUN Creatinine Ratio 34.4; Bilirubin Total 0.3 mg/dL (0.2-1.0); Calcium 9.1 mg/dL (8.5-10.1); Carbon Dioxide 27.4 mmol/L (21.0-32.0); Chloride 104 mmol/L (98-107); Estimated GFR (African America >60 (>=60 mL/min/1.73m^2); Estimated GFR (Non-African Ame >60 (>=60 mL/min/1.73m^2); Globulin 3.4 g/dL; Glucose 82 mg/dL (74-106); Potassium 3.9 mmol/L (3.5-5.1); Sodium 140 mmol/L (136-145); Total Protein 7.1 g/dL (6.4-8.2); Troponin I High Sensitivity <4.0 pg/mL (4.0-51.3)
[2025-01-15 18:02] VITALS: BP 133/77; PULSE 66; O2SAT 99
[2025-01-15 19:01] VITALS: BP 163/88; PULSE 70
== END 2025-01-15 19:09 | disposition home or self-care (01) ==
PROVIDERS: Emergency Provider Emergency Medicine; PCP Family Medicine
DX: R07.9 Chest pain, unspecified (principal)
CPT/HCPCS: 36415; 71046; 80053; 83690; 84484; 85025; 93005; 99285